=== PATIENT | female | born 1930 | race Caucasian/White ===

== ENCOUNTER → 2016-07-03 | Outpatient (CLI) | payer MEDICARE ==
--- NOTE | 2016-07-03 10:48 | FL ---
EXAMINATION TYPE: FL barium swallow DATE OF EXAM: 07/03/2016 10:27 AM CLINICAL HISTORY: Feels food getting stuck, choking when swallowing. TECHNIQUE: A double contrast esophagram is performed utilizing air and barium. A total of approxima tely 45 seconds of fluoroscopic time was utilized during procedure. COMPARISON: CT abdomen and pelvis June 21, 2015 FINDINGS: The esophagus shows some mild dysmotility with some abnormal secondary and tertiary contrac tions identified distally after several episodes of drinking perhaps related to fatigue . No evidenc e of hiatal hernia or stricture noted. No abnormal outpouching or intraluminal mass is identified. Du ring rapid drinking of thick liquid barium episode of aspiration which does not initiate cough reflex was identified. No significant gastroesophageal reflux was seen during real time performance of this study. IMPRESSION: Aspiration with drinking significant rapid amount of thick liquid barium which does not i nitiate cough reflex, presumed product of rapid drinking and fatigue. This could be reevaluated with modified barium swallow study if desired. Some dysmotility noted perhaps related to fatigue. No obstr ucting mass, stricture, or diverticulum identified.
== END | disposition home or self-care (01) ==
LOC: RADFLWHC 09:56
PROVIDERS: ATTEND Family Medicine
DX: R09.89 Other specified symptoms and signs involving the circulatory and respiratory systems (principal)
CPT/HCPCS: 74220

== ENCOUNTER → 2016-07-13 | Outpatient (CLI) | payer MEDICARE ==
--- NOTE | 2016-07-13 12:15 | FL ---
EXAMINATION TYPE: FL barium swallow w video DATE OF EXAM: 07/13/2016 11:42 AM COMPARISON: NONE HISTORY: Aspiration on esophagram TECHNIQUE: Fluoroscopy. FINDINGS: Fluoroscopic guidance was provided for the procedure performed in conjunction with the [facility] pathology department. Please see complete report forthcoming from the Speech Pathology departmen t. Various consistencies from thin liquid to solids were administered. No aspiration or penetration was evident. No significant pooling was observed in the vallecula. There was normal propulsion of the bolus. IMPRESSION: 1. No aspiration or penetration on the current evaluation.
== END ==
LOC: RADFLMAIN 10:58
PROVIDERS: ATTEND Family Medicine
DX: R09.89 Other specified symptoms and signs involving the circulatory and respiratory systems (principal)
CPT/HCPCS: 74230

== ENCOUNTER 2016-09-09 19:09 | Emergency (ER) | payer MEDICARE ==
--- NOTE | 2016-09-09 20:23 | ED ---
General Adult HPI - General Chief complaint: Recheck/Abnormal Lab/Rx Stated complaint: Abnormal Labs Time Seen by Provider: 09/09/16 19:22 Source: patient Mode of arrival: ambulatory Limitations: no limitations - History of Present Illness Initial comments: Patient is an 86-year-old female presenting for abnormal lab. Patient had an elevated d-dimer by PCP. Patient states she's not been feeling well for the past 3-4 days. Patient cannot extrapolate on this. Patient states she follow up with her PCP on Wednesday noted to have hypertension for which she was started on amlodipine [address] Herron who responded stating he was concerned about a PE given patient's complaint of shortness of breath and fatigue. Patient denies fever, chills, chest, shortness breath, nausea, vomiting, diarrhea, dysuria. Patient denies any blood loss. Patient denies history of DVT/PE, hemoptysis, cancer, recent travel/trauma/surgery, denies estrogen use. - Related Data Home Medications Medication Instructions Recorded Confirmed Aspirin EC [Ecotrin Low Dose] 81 mg PO DAILY 09/09/16 09/09/16 amLODIPine [Norvasc] 5 mg PO DAILY 09/09/16 09/09/16 Previous Rx's Medication Instructions Recorded Cephalexin [Keflex] 500 mg PO TID #21 cap 09/09/16 Allergies Allergy/AdvReac Type Severity Reaction Status Date / Time Sulfa (Sulfonamide Allergy Unknown Verified 09/09/16 20:10 Antibiotics) Childhood Review of Systems ROS Statement: Those systems with pertinent positive or pertinent negative responses have been documented in the HPI. Constitutional: No fever and no chills. HENT: No congestion, no rhinorrhea and no sore throat. Eyes: No discharge and no redness. Respiratory: No cough and no shortness of breath. Cardiovascular: No chest pain and no palpitations. Gastrointestinal: No nausea, no vomiting, no abdominal pain and no diarrhea. Genitourinary: No dysuria and no hematuria. Musculoskeletal: No back pain and no arthralgias. Skin: No pallor and no rash. Neurological: Positive fatigue. No dizziness and No headaches. ROS Other: All systems not noted in ROS Statement are negative. Past Medical History Past Medical History: Hypertension History of Any Multi-Drug Resistant Organisms: None Reported Additional Past Surgical History / Comment(s): hemorrhoid surg Past Psychological History: No Psychological Hx Reported Smoking Status: Never smoker Past Alcohol Use History: None Reported Past Drug Use History: None Reported General Exam - General Exam Comments Initial Comments: Constitutional: Patient appears well-developed and well-nourished. No distress. Head: Normocephalic and atraumatic. Eyes: Conjunctivae and EOM are normal. Right eye exhibits no discharge. Left eye exhibits no discharge. No scleral icterus. Neck: Normal range of motion. Neck supple. Cardiovascular: Normal rate and regular rhythm. No murmur heard. Pulmonary/Chest: Effort normal and breath sounds normal. No respiratory distress. No wheezes. Abdominal: Soft. No distension. There is no tenderness. There is no rebound and no guarding. Musculoskeletal: Normal range of motion. No edema or tenderness. No unilateral calf tenderness or swelling. Neurological: Patient alert and oriented to person, place, and time. Skin: Skin is warm and dry. Not diaphoretic. Nursing notes and vitals reviewed. Limitations: no limitations Course Vital Signs 09/09/16 09/09/16 09/09/16 19:15 21:39 23:06 Temperature 98.3 F Pulse Rate 83 82 86 Respiratory 20 18 18 Rate Blood Pressure 206/84 145/66 158/68 O2 Sat by Pulse 96 96 94 L Oximetry - Reevaluation(s) Reevaluation #1: 09/09/16 22:26 Patient resting comfortably in the stretcher. Will order CT renal stone to make sure patient does not have a kidney stone causing infection. Reevaluation #2: 09/10/16 00:04 Patient resting comfortably in the stretcher. No further complaints. Updated on results. EKG Findings - EKG Comments: EKG Findings:: Rate 85. NSR. No ST-T wave changes. LA internal normal . QRS interval normal. QTc duration normal. Medical Decision Making - Medical Decision Making Patient is an 86-year-old female presenting with elevated d-dimer. CTA was ordered at requests of PCP as patient did not have an outpatient order for it. Patient with fatigue for the past 4 days. CTA with incidental findings which were disclosed to the patient. CT report printed for patient to follow-up with Dr. Herron. CBC, BMP, troponin unremarkable. EKG unremarkable. UA showing 15 urine WBCs with incidental finding on CT chest of hydronephrosis. CT abdomen and pelvis was obtained not showing concerns for hydronephrosis or obstructive nephrolithiasis. Patient's fairly well-appearing and stable for discharge. Patient was started on Keflex. Prior to discharge, patient was resting comfortably in bed. Course of stay improved. Denies pain. Discussed physical exam and diagnostic tests with patient. Questions answered and patient is agreeable to discharge with close follow up with Primary Care Physician. Instructed to return to Emergency Department if symptoms worsen. - Lab Data Result diagrams: 09/09/16 20:35 09/09/16 20:35 Lab Results 09/09/16 09/09/16 09/09/16 Range/Units 20:06 20:35 20:35 WBC 6.1 (3.8-10.6) k/uL RBC 4.79 (3.80-5.40) m/uL Hgb 15.1 (11.4-16.0) gm/dL Hct 44.5 (34.0-46.0) % MCV 93.0 (80.0-100.0) fL MCH 31.6 (25.0-35.0) pg MCHC 33.9 (31.0-37.0) g/dL RDW 12.6 (11.5-15.5) % Plt Count 295 (150-450) k/uL Neutrophils % 47 % Lymphocytes % 41 % Monocytes % 7 % Eosinophils % 3 % Basophils % 0 % Neutrophils # 2.8 (1.3-7.7) k/uL Lymphocytes # 2.5 (1.0-4.8) k/uL Monocytes # 0.4 (0-1.0) k/uL Eosinophils # 0.2 (0-0.7) k/uL Basophils # 0.0 (0-0.2) k/uL PT (9.0-12.0) sec INR (<1.1) APTT (22.0-30.0) sec Sodium 142 (137-145) mmol/L Potassium 4.0 (3.5-5.1) mmol/L Chloride 104 (98-107) mmol/L Carbon Dioxide 27 (22-30) mmol/L Anion Gap 11 mmol/L BUN 20 H (7-17) mg/dL Creatinine 0.71 (0.52-1.04) mg/dL Est GFR (MDRD) Af Amer >60 (>60 ml/min/1.73 sqM) Est GFR (MDRD) Non-Af >60 (>60 ml/min/1.73 sqM) Glucose 102 H (74-99) mg/dL Calcium 10.3 H (8.4-10.2) mg/dL Troponin I (0.000-0.034) ng/mL Urine Color Yellow Urine Appearance Clear (Clear) Urine pH 6.0 (5.0-8.0) Ur Specific [place] 1.014 (1.001-1.035) Urine Protein Negative (Negative) Urine Glucose (UA) Negative (Negative) Urine Ketones Trace H (Negative) Urine Blood Trace H (Negative) Urine Nitrite Negative (Negative) Urine Bilirubin Negative (Negative) Urine Urobilinogen <2.0 (<2.0) mg/dL Ur Leukocyte Esterase Moderate H (Negative) Urine RBC 4 (0-5) /hpf Urine WBC 15 H (0-5) /hpf Ur Squamous Epith Cells 1 (0-4) /hpf Urine Bacteria Rare H (None) /hpf Urine Mucus Rare H (None) /hpf 09/09/16 09/09/16 Range/Units 20:35 20:35 WBC (3.8-10.6) k/uL RBC (3.80-5.40) m/uL Hgb (11.4-16.0) gm/dL Hct (34.0-46.0) % MCV (80.0-100.0) fL MCH (25.0-35.0) pg MCHC (31.0-37.0) g/dL RDW (11.5-15.5) % Plt Count (150-450) k/uL Neutrophils % % Lymphocytes % % Monocytes % % Eosinophils % % Basophils % % Neutrophils # (1.3-7.7) k/uL Lymphocytes # (1.0-4.8) k/uL Monocytes # (0-1.0) k/uL Eosinophils # (0-0.7) k/uL Basophils # (0-0.2) k/uL PT 9.8 (9.0-12.0) sec INR 1.0 (<1.1) APTT 25.8 (22.0-30.0) sec Sodium (137-145) mmol/L Potassium (3.5-5.1) mmol/L Chloride (98-107) mmol/L Carbon Dioxide (22-30) mmol/L Anion Gap mmol/L BUN (7-17) mg/dL Creatinine (0.52-1.04) mg/dL Est GFR (MDRD) Af Amer (>60 ml/min/1.73 sqM) Est GFR (MDRD) Non-Af (>60 ml/min/1.73 sqM) Glucose (74-99) mg/dL Calcium (8.4-10.2) mg/dL Troponin I <0.012 (0.000-0.034) ng/mL Urine Color Urine Appearance (Clear) Urine pH (5.0-8.0) Ur Specific [place] (1.001-1.035) Urine Protein (Negative) Urine Glucose (UA) (Negative) Urine Ketones (Negative) Urine Blood (Negative) Urine Nitrite (Negative) Urine Bilirubin (Negative) Urine Urobilinogen (<2.0) mg/dL Ur Leukocyte Esterase (Negative) Urine RBC (0-5) /hpf Urine WBC (0-5) /hpf Ur Squamous Epith Cells (0-4) /hpf Urine Bacteria (None) /hpf Urine Mucus (None) /hpf Disposition Clinical Impression: Fatigue, Abnormal CT of the chest, UTI (urinary tract infection) Disposition: HOME SELF-CARE Condition: Good Instructions: Fatigue (ED) Prescriptions: Cephalexin [Keflex] 500 mg PO TID #21 cap Referrals: Dennis Herron MD [Primary Care Provider] - 1-2 days
[2016-09-09] MEDS ORDERED: RX INFO: IV CONTRAST WAS GIVEN 1 EACH MISC MISCELLANE PRN (20:24)
[2016-09-09 20:50] LABS: Appearance,Urine Clear (Clear); Bacteria,Urine Rare /hpf; Bilirubin,Urine Negative (Negative); Glucose,Urine (UA) Negative (Negative); Ketones,Urine Trace (Negative); Leukocyte Esterase,Urine Moderate (Negative); Mucus,Urine Rare /hpf; Nitrite,Urine Negative (Negative); Particle Count 1421; Protein,Urine Negative (Negative); RBC,Urine 4 /hpf (0-5); Specific Gravity,Urine 1.014 (1.001-1.035); Squamous Epithelial Cell,Urine 1 /hpf (0-4); UA Billing (MACRO vs. MICRO) MICRO; Urobilinogen,Urine <2.0 mg/dL (<2.0); WBC,Urine 15 /hpf (0-5)
[2016-09-09 20:52] LABS: Basophils % (A) 0 %; CH 30.5; CHCM 32.9; Eosinophils # (A) 0.2 k/uL (0-0.7); Eosinophils % (A) 3 %; HCT 44.5 % (34.0-46.0); HDW 2.28; HGB 15.1 gm/dL (11.4-16.0); Luc # (Auto) 0.15; Luc % (Auto) 3; Lymphocytes # (A) 2.5 k/uL (1.0-4.8); Lymphocytes % (A) 41 %; MCH 31.6 pg (25.0-35.0); MCHC 33.9 g/dL (31.0-37.0); Mean Platelet Volume 7.1; Monocytes # (A) 0.4 k/uL (0-1.0); Monocytes % (A) 7 %; Neutrophils # (A) 2.8 k/uL (1.3-7.7); Neutrophils % (A) 47 %; RBC 4.79 m/uL (3.80-5.40); RDW 12.6 % (11.5-15.5); WBC 6.1 k/uL (3.8-10.6); WBC (Perox) 6.02
[2016-09-09 21:04] LABS: Partial Thromboplastin Time 25.8 sec (22.0-30.0); Prothrombin Time 9.8 sec (9.0-12.0)
[2016-09-09 21:11] LABS: Anion Gap 11 mmol/L; Blood Urea Nitrogen 20 mg/dL (7-17); Calcium 10.3 mg/dL (8.4-10.2); Carbon Dioxide 27 mmol/L (22-30); Chloride 104 mmol/L (98-107); Glucose 102 mg/dL (74-99); Non-African American GFR(MDRD) >60 (>60 ml/min/1.73 sqM); Sodium 142 mmol/L (137-145)
[2016-09-09 21:42] VITALS: RESP 18
--- NOTE | 2016-09-09 22:04 | CT ---
CT CHEST FOR PULMONARY EMBOLISM. EXAMINATION TYPE: CT angio chest DATE OF EXAM: 09/09/2016 9:42 PM INDICATION: Abnormal labs. Recently started a new BP medication CT DLP: 172.1 mGycm, Automated exposure control for dose reduction was used. CONTRAST: Patient injected with 100 mL of Omnipaque 350. COMPARISON: NONE TECHNIQUE: CT of the chest is performed on a spiral scan at 2 mm thick sections. Study is performed with intravenous contrast timed for evaluation for pulmonary embolism. This will limit additional po rtions of the evaluation. 3-D MIP images reconstructed by the technologist are reviewed on the compu ter in the coronal and sagittal planes. FINDINGS: No persistent filling defects are evident to suggest an acute pulmonary embolism. No mediastinal or hilar adenopathy enlarged by CT criteria is evident. Small pretracheal lymph nodes are present. The ascending aorta diameter at the level of the main pulmonary artery is 2.9 cm. The main pulmonary artery diameter at the bifurcation is 2.2 cm. There is a calcified granuloma in the posterior right lung base measuring 0.7 cm. Some atelectatic ch anges are likely present within the posterior medial right lung base. Findings were present to 016. Scarring can be considered. Underlying mass is not excluded. There is a punctate density at the left lung apex. An area of increased thickening is along the right lung apex. There is some mild left hydronephrosis. There may be delayed excretion on the left. Correlate for adolfo al stone. Right lobe thyroid appears somewhat prominent. Some enlargement of the thyroid may be prese nt. As extends towards the suprasternal region. IMPRESSIONS: 1. No acute pulmonary embolism. 2. Granuloma right lung base. 3. Atelectasis versus scarring or mass effect posterior medial right lung base. Follow-up is recommen ded. 4. Delayed excretion on the left with slow perfusion of the left kidney. Consider renal workup.
--- NOTE | 2016-09-09 23:35 | CT ---
EXAM: CT Abdomen and Pelvis With Intravenous Contrast CLINICAL HISTORY: Reason: Pain TECHNIQUE: Axial computed tomography images of the abdomen and pelvis with intravenous contrast. CTDI is 6.20 mGy and DLP is 255.0 mGy-cm This CT exam was performed using one or more of the following dose reduction techniques: automated exposure control, adjustment of the mA and/or kV according to patient size, and/or use of iterative reconstruction technique. COMPARISON: CT abdomen and pelvis 06/21/15 FINDINGS: Lower thorax: Scarring or discoid atelectasis, at the lower lobes. Calcified granuloma at the posterior aspect of the right lower lobe. ABDOMEN: Liver: Unremarkable. No mass. Gallbladder and bile ducts: Pancreas and gallbladder are grossly unremarkable. No calcified stones. No ductal dilation. Pancreas: See above. Spleen: Unremarkable. No splenomegaly. Adrenals: Unremarkable. No mass. Kidneys and ureters: Unremarkable. No solid mass. No hydronephrosis. Stomach and bowel: No bowel obstruction. No appendicitis or colitis. Scattered colonic diverticula. No acute diverticulitis. No other inflammatory changes of bowel. Appendix: See above. PELVIS: Bladder: Unremarkable. No mass. Reproductive: Unremarkable as visualized. ABDOMEN and PELVIS: Intraperitoneal space: Unremarkable. No free air. No significant fluid collection. Bones/joints: Grade 2 degenerative anterolisthesis at L2 on L3. Associated up to moderate neuroforaminal stenosis bilaterally. No acute fracture. No dislocation. Soft tissues: Unremarkable. Vasculature: Unremarkable. No abdominal aortic aneurysm. Lymph nodes: Unremarkable. No enlarged lymph nodes. IMPRESSION: No acute or inflammatory disease or bowel obstruction. Colonic diverticulosis. Grade 2 degenerative anterolisthesis of L2 on L3.
[2016-09-10 00:09] VITALS: BP 157/68; PULSE 85; TEMP 97.5
== END 2016-09-10 00:09 | disposition home or self-care (01) ==
LOC: EC 19:09
DX: N39.0 Urinary tract infection, site not specified (principal); R93.8 Abnormal findings on diagnostic imaging of other specified body structures; K57.30 Diverticulosis of large intestine without perforation or abscess without bleeding; I10 Essential (primary) hypertension; Z79.82 Long term (current) use of aspirin; Z79.899 Other long term (current) drug therapy; Z88.2 Allergy status to sulfonamides
CPT/HCPCS: 36415; 93005; 80048; 84484; 85025; 85610; 85730; 81001; 71275; 74177; 99284; Q9967

== ENCOUNTER → 2017-10-29 | Outpatient (CLI) | payer MEDICARE ==
[2017-10-29 14:15] LABS: Basophils % (A) 1 %; Eosinophils # (A) 0.2 k/uL (0-0.7); Eosinophils % (A) 3 %; HCT 41.9 % (34.0-46.0); HGB 13.3 gm/dL (11.4-16.0); Lymphocytes # (A) 1.5 k/uL (1.0-4.8); Lymphocytes % (A) 31 %; MCH 30.3 pg (25.0-35.0); MCHC 31.8 g/dL (31.0-37.0); MCV 95.3 fL (80.0-100.0); Mean Platelet Volume 7.1; Monocytes # (A) 0.4 k/uL (0-1.0); Monocytes % (A) 7 %; Neutrophils # (A) 2.8 k/uL (1.3-7.7); Neutrophils % (A) 56 %; Platelet Count 256 k/uL (150-450); RDW 12.8 % (11.5-15.5); WBC 4.9 k/uL (3.8-10.6)
[2017-10-29 14:35] LABS: Albumin 4.4 g/dL (3.5-5.0); Calcium 10.3 mg/dL (8.4-10.2); Potassium 4.5 mmol/L (3.5-5.1); Total Bilirubin 0.2 mg/dL (0.2-1.3); Total Protein 7.3 g/dL (6.3-8.2)
[2017-10-29 14:51] LABS: T4, Free (Free Thyroxine) 1.09 ng/dL (0.78-2.19)
[2017-10-29 15:00] LABS: Creatine Kinase MB 1.4 ng/mL (0.0-2.4); Troponin I <0.012 ng/mL (0.000-0.034)
== END ==
LOC: LABWHC1 13:54
PROVIDERS: ATTEND Nurse Practitioner Adult Health
DX: I10 Essential (primary) hypertension (principal)
CPT/HCPCS: 36415; 80053; 82550; 82553; 84439; 84443; 84484; 85025

== ENCOUNTER 2018-06-08 14:42 | Inpatient (IN) | payer MEDICARE ==
[2018-06-08] MEDS ORDERED: MORPHINE SULFATE 4 MG/ML SYRINGE IV STA (15:03)
[2018-06-08] MEDS ORDERED: ONDANSETRON 4 MG/2 ML VIAL IVP STA (15:03)
[2018-06-08] MEDS ORDERED: SODIUM CHLORIDE 0.9% 1,000 ML IV STA ×2 (15:03)
[2018-06-08] MEDS ORDERED: PANTOPRAZOLE 40 MG/10 ML VIAL IVP STA (15:03)
--- NOTE | 2018-06-08 15:19 | ED ---
General Adult HPI - General Source: patient, EMS, RN notes reviewed, old records reviewed Mode of arrival: EMS Limitations: no limitations <Cony Alvarado - Last Filed: 06/08/18 20:10> <Isaiah Khan - Last Filed: 06/08/18 20:45> - General Chief complaint: Abdominal Pain Stated complaint: Poss bowel obstruction Time Seen by Provider: 06/08/18 14:55 - History of Present Illness Initial comments: Patient is 87-year-old female who presents emergency Department today with complaints of concerns abdominal obstuction. She was transferred from [facility]. Ports that her abdominal pain and distention and vomiting episodes started at 8 AM. She reports that she took some prune juice to promote a bowel movement. She did have very small stool. Patient states that she has had no fevers or chills. She denies any associated chest pain or shortness of breath. Surgical history includes hysterectomy and bladder sling. (Cony Alvarado) - Related Data Home Medications Medication Instructions Recorded Confirmed Aspirin EC [Ecotrin Low Dose] 81 mg PO ONCE PRN 09/09/16 06/08/18 Cholecalciferol [Vitamin D3] 5,000 unit PO DAILY 04/22/17 06/08/18 Losartan Potassium [Cozaar] 100 mg PO HS 04/22/17 06/08/18 Allergies Allergy/AdvReac Type Severity Reaction Status Date / Time Sulfa (Sulfonamide Allergy Unknown Verified 06/08/18 15:22 Antibiotics) Childhood Review of Systems ROS Other: All systems not noted in ROS Statement are negative. <Cony Alvarado - Last Filed: 06/08/18 20:10> ROS Other: All systems not noted in ROS Statement are negative. <Isaiah Khan - Last Filed: 06/08/18 20:45> ROS Statement: Those systems with pertinent positive or pertinent negative responses have been documented in the HPI. Past Medical History Past Medical History: Hypertension History of Any Multi-Drug Resistant Organisms: None Reported Past Surgical History: Hysterectomy Additional Past Surgical History / Comment(s): hemorrhoid surg , bladder suspension Past Psychological History: No Psychological Hx Reported Smoking Status: Never smoker Past Alcohol Use History: None Reported Past Drug Use History: None Reported <Cony Alvarado - Last Filed: 06/08/18 20:10> General Exam Limitations: no limitations General appearance: alert, in no apparent distress Head exam: Present: atraumatic, normocephalic, normal inspection Eye exam: Present: normal appearance, PERRL, EOMI. Absent: scleral icterus, conjunctival injection, periorbital swelling ENT exam: Present: normal exam, mucous membranes moist Neck exam: Present: normal inspection. Absent: tenderness, meningismus, lymphadenopathy Respiratory exam: Present: normal lung sounds bilaterally. Absent: respiratory distress, wheezes, rales, rhonchi, stridor Cardiovascular Exam: Present: regular rate, normal rhythm, normal heart sounds. Absent: systolic murmur, diastolic murmur, rubs, gallop, clicks GI/Abdominal exam: Present: soft, distended, tenderness (Abdominal distention and epigastric tenderness), normal bowel sounds. Absent: guarding, rebound, rigid Extremities exam: Present: normal inspection, full ROM, normal capillary refill. Absent: tenderness, pedal edema, joint swelling, calf tenderness Back exam: Present: normal inspection Neurological exam: Present: alert, oriented X3, CN II-XII intact Psychiatric exam: Present: normal affect, normal mood <Cony Alvarado - Last Filed: 06/08/18 20:10> <Isaiah Khan - Last Filed: 06/08/18 20:45> - General Exam Comments Initial Comments: 87-year-old female. Alert and oriented. Moderate discomfort. Vomiting on examination. (Cony Alvarado) Course <Cony Alvarado - Last Filed: 06/08/18 20:10> <Isaiah Khan - Last Filed: 06/08/18 20:45> Vital Signs 06/08/18 06/08/18 06/08/18 14:56 16:00 16:30 Temperature 97.6 F Pulse Rate 92 87 85 Respiratory 16 18 16 Rate Blood Pressure 182/88 128/49 138/52 O2 Sat by Pulse 97 89 L 96 Oximetry 06/08/18 06/08/18 06/08/18 17:00 18:34 20:40 Temperature 97.9 F Pulse Rate 90 89 87 Respiratory 18 18 16 Rate Blood Pressure 149/71 151/75 114/56 O2 Sat by Pulse 97 94 L 96 Oximetry - Reevaluation(s) Reevaluation #1: 06/08/18 20:45 Case was discussed with Dr. Joseph, covering for Dr. Huerta just for the time being. He states to admit Dr. Huerta who will pharmacy picking technician the case in the morning. Case was also discussed with Dr. Dee. (Isaiah Khan) EKG Findings - EKG Comments: EKG Findings:: EKG performed at 1543 shows normal sinus rhythm, ventricular hypertrophy with repolarization abnormality. Inferior infarct age indeterminate. Ventricular rate of 89 bpm. Pulse 170 ms. QS duration 104. QT QTC 32/464. <Cony Alvarado - Last Filed: 06/08/18 20:10> Medical Decision Making - Lab Data Result diagrams: 06/08/18 15:22 06/08/18 15:20 - Radiology Data Radiology results: report reviewed <Cony Alvarado - Last Filed: 06/08/18 20:10> - Lab Data Result diagrams: 06/08/18 15:22 06/08/18 15:20 <Isaiah Khan - Last Filed: 06/08/18 20:45> - Medical Decision Making 79-year-old female presents resources with 1 day of vomiting. Was sent in from urgent care for concerns for about section. This is confirmed with CT. Lab work was otherwise normal. She continues some pain with abdominal distention. We did contact [facility] in NG tube. Patient tolerated procedure well. Patient will be admitted under medicine with consults to Dr. Dee. Dr. Khan discussed the case with Dr. Dee. (Cony Alvarado) - Lab Data Lab Results 06/08/18 06/08/18 06/08/18 Range/Units 15:20 15:22 15:22 WBC 13.1 H (3.8-10.6) k/uL RBC 4.68 (3.80-5.40) m/uL Hgb 14.1 (11.4-16.0) gm/dL Hct 44.6 (34.0-46.0) % MCV 95.2 (80.0-100.0) fL MCH 30.1 (25.0-35.0) pg MCHC 31.6 (31.0-37.0) g/dL RDW 12.6 (11.5-15.5) % Plt Count 303 (150-450) k/uL Neutrophils % 90 % Lymphocytes % 6 % Monocytes % 2 % Eosinophils % 1 % Basophils % 0 % Neutrophils # 11.8 H (1.3-7.7) k/uL Lymphocytes # 0.8 L (1.0-4.8) k/uL Monocytes # 0.3 (0-1.0) k/uL Eosinophils # 0.1 (0-0.7) k/uL Basophils # 0.0 (0-0.2) k/uL PT 9.5 (9.0-12.0) sec INR 0.9 (<1.2) APTT 25.1 (22.0-30.0) sec Sodium 141 (137-145) mmol/L Potassium 4.7 (3.5-5.1) mmol/L Chloride 107 (98-107) mmol/L Carbon Dioxide 23 (22-30) mmol/L Anion Gap 11 mmol/L BUN 15 (7-17) mg/dL Creatinine 0.79 (0.52-1.04) mg/dL Est GFR (CKD-EPI)AfAm 78 (>60 ml/min/1.73 sqM) Est GFR (CKD-EPI)NonAf 68 (>60 ml/min/1.73 sqM) Glucose 133 H (74-99) mg/dL Calcium 10.2 (8.4-10.2) mg/dL Total Bilirubin 0.5 (0.2-1.3) mg/dL AST 28 (14-36) U/L ALT 35 (9-52) U/L Alkaline Phosphatase 64 (38-126) U/L Troponin I (0.000-0.034) ng/mL Total Protein 8.2 (6.3-8.2) g/dL Albumin 4.6 (3.5-5.0) g/dL Amylase 95 (30-110) U/L Lipase 138 (23-300) U/L 06/08/18 Range/Units 17:40 WBC (3.8-10.6) k/uL RBC (3.80-5.40) m/uL Hgb (11.4-16.0) gm/dL Hct (34.0-46.0) % MCV (80.0-100.0) fL MCH (25.0-35.0) pg MCHC (31.0-37.0) g/dL RDW (11.5-15.5) % Plt Count (150-450) k/uL Neutrophils % % Lymphocytes % % Monocytes % % Eosinophils % % Basophils % % Neutrophils # (1.3-7.7) k/uL Lymphocytes # (1.0-4.8) k/uL Monocytes # (0-1.0) k/uL Eosinophils # (0-0.7) k/uL Basophils # (0-0.2) k/uL PT (9.0-12.0) sec INR (<1.2) APTT (22.0-30.0) sec Sodium (137-145) mmol/L Potassium (3.5-5.1) mmol/L Chloride (98-107) mmol/L Carbon Dioxide (22-30) mmol/L Anion Gap mmol/L BUN (7-17) mg/dL Creatinine (0.52-1.04) mg/dL Est GFR (CKD-EPI)AfAm (>60 ml/min/1.73 sqM) Est GFR (CKD-EPI)NonAf (>60 ml/min/1.73 sqM) Glucose (74-99) mg/dL Calcium (8.4-10.2) mg/dL Total Bilirubin (0.2-1.3) mg/dL AST (14-36) U/L ALT (9-52) U/L Alkaline Phosphatase (38-126) U/L Troponin I <0.012 (0.000-0.034) ng/mL Total Protein (6.3-8.2) g/dL Albumin (3.5-5.0) g/dL Amylase (30-110) U/L Lipase (23-300) U/L - Radiology Data Moderate small bowel obstruction. Minimal peritoneal fluid. Likely reactive. There is a mild/moderate small bowel obstruction. Minimal peritoneal fluid likely reactive. The level obstruction being at the mid ileum with pelvic transition point. No massive the transition findings suggest adhesions. There is no bowel wall thickening or pneumatosis. No pneumoperitoneum or extraluminal gas. Severe colon diverticulosis noted. No diverticulitis. ( Cony Alvarado) Disposition Is patient prescribed a controlled substance at d/c from ED?: No Time of Disposition: 19:21 <Cony Alvarado - Last Filed: 06/08/18 20:10> <Isaiah Khan - Last Filed: 06/08/18 20:45> Clinical Impression: SBO (small bowel obstruction) Disposition: ADMITTED IP TO THIS HOSP Condition: Stable Referrals: Dennis Herron MD [Primary Care Provider] - 1-2 days
[2018-06-08 15:42] LABS: Basophils % (A) 0 %; Eosinophils # (A) 0.1 k/uL (0-0.7); Eosinophils % (A) 1 %; HCT 44.6 % (34.0-46.0); HGB 14.1 gm/dL (11.4-16.0); Lymphocytes # (A) 0.8 k/uL (1.0-4.8); Lymphocytes % (A) 6 %; MCH 30.1 pg (25.0-35.0); MCHC 31.6 g/dL (31.0-37.0); MCV 95.2 fL (80.0-100.0); Mean Platelet Volume 6.7; Monocytes # (A) 0.3 k/uL (0-1.0); Monocytes % (A) 2 %; Neutrophils # (A) 11.8 k/uL (1.3-7.7); Neutrophils % (A) 90 %; Platelet Count 303 k/uL (150-450); RBC 4.68 m/uL (3.80-5.40); RDW 12.6 % (11.5-15.5); WBC 13.1 k/uL (3.8-10.6)
[2018-06-08 15:56] LABS: Albumin 4.6 g/dL (3.5-5.0); Calcium 10.2 mg/dL (8.4-10.2); Potassium 4.7 mmol/L (3.5-5.1); Total Bilirubin 0.5 mg/dL (0.2-1.3); Total Protein 8.2 g/dL (6.3-8.2)
[2018-06-08 16:21] LABS: INR 0.9 (<1.2); Partial Thromboplastin Time 25.1 sec (22.0-30.0); Prothrombin Time 9.5 sec (9.0-12.0)
--- NOTE | 2018-06-08 17:30 | CT ---
EXAMINATION TYPE: CT abdomen pelvis w con DATE OF EXAM: 06/08/2018 COMPARISON: 09/09/2016 HISTORY: Generalized abdominal pain and cramping today. CT DLP: 595.1 mGycm Automated exposure control for dose reduction was used. TECHNIQUE: Helical acquisition of images was performed from the lung bases through the pelvis. CONTRAST: Performed without Oral Contrast and with IV Contrast, patient injected with 100 mL of Isovue 300. FINDINGS: LUNG BASES: No acute findings. Coronary calcifications noted. LIVER/GB: No significant abnormality is appreciated. PANCREAS: No significant abnormality is seen. SPLEEN: No significant abnormality is seen. ADRENALS: No significant abnormality is seen. KIDNEYS: No significant abnormality is seen. Left parapelvic cysts incidentally redemonstrated. FREE AIR: No free air is visualized. Minimal peritoneal fluid is noted, related to the liver and spl een and pelvic cul-de-sac. RETROPERITONEAL ADENOPATHY: None visualized REPRODUCTIVE ORGANS: No significant abnormality is seen URINARY BLADDER: No significant abnormality is seen. PELVIC ADENOPATHY: None visualized. OSSEOUS STRUCTURES: No significant abnormality is seen. BOWEL: There is mild-moderate small bowel obstruction, with level of obstruction being at the midile um, with pelvic transition point. As there is no mass at the transition, findings suggest adhesions a s etiology. There is no bowel wall thickening or pneumatosis. No pneumoperitoneum or other extralumin al gas. Severe colonic diverticulosis, involving all segments of the colon. No diverticulitis. OTHER: No acute vascular findings. IMPRESSION: 1. MODERATE SMALL BOWEL OBSTRUCTION. 2. MINIMAL PERITONEAL FLUID, LIKELY REACTIVE.
[2018-06-08] MEDS ORDERED: HYDROmorphone 1 MG/ML 1 ML SYRINGE IVP STA (17:50)
--- NOTE | 2018-06-08 19:07 | XR ---
EXAMINATION TYPE: XR abdomen 2V DATE OF EXAM: 06/08/2018 COMPARISON: 06/23/2015 HISTORY: NG tube placement TECHNIQUE: 2 supine portable views were obtained FINDINGS: The radiographs show NG tube to be present, with tip and port superimposed over the gastric fundus. Radiographic contrast can be seen within the collecting systems and the urinary bladder. No other fin dings. IMPRESSION: NG tube placement.
[2018-06-08] MEDS ORDERED: NALOXONE 0.4 MG/ML 1 ML VIAL IV PRN (19:21)
[2018-06-08] MEDS ORDERED: HYDROmorphone 0.5 MG/0.5 ML SYRINGE IVP PRN (19:21)
[2018-06-08] MEDS: SODIUM CHLORIDE 0.9% 1,000 ML IV SCH (22:46)
[2018-06-08] MEDS: HYDROmorphone 1 MG/ML 1 ML SYRINGE IVP PRN (22:49)
[2018-06-09] MEDS: HYDROmorphone 1 MG/ML 1 ML SYRINGE IVP PRN ×3 (03:43→19:44)
[2018-06-09 04:03] LABS: Appearance,Urine Clear (Clear); Bacteria,Urine Rare /hpf; Bilirubin,Urine Negative (Negative); Blood,Urine Small (Negative); Color,Urine Yellow; Glucose,Urine (UA) Negative (Negative); Ketones,Urine 1+ (Negative); Leukocyte Esterase,Urine Negative (Negative); Mucus,Urine Rare /hpf; Nitrite,Urine Negative (Negative); PH, Urine 5.5 (5.0-8.0); Protein,Urine Negative (Negative); RBC,Urine 6 /hpf (0-5); Specific Gravity,Urine 1.039 (1.001-1.035); Squamous Epithelial Cell,Urine 5 /hpf (0-4); Urobilinogen,Urine <2.0 mg/dL (<2.0)
[2018-06-09] MEDS: SODIUM CHLORIDE 0.9% 1,000 ML IV SCH ×2 (06:57→16:41)
[2018-06-09] MEDS: PANTOPRAZOLE 40 MG/10 ML VIAL IV SCH (08:43)
[2018-06-09] MEDS: ONDANSETRON 4 MG/2 ML VIAL IVP PRN (08:59)
[2018-06-09] MEDS ORDERED: BENZOCAINE SPRAY 1 CAN MUCOUS MEM PRN (09:00)
--- NOTE | 2018-06-09 09:41 | XR ---
EXAMINATION TYPE: XR abdomen 1V DATE OF EXAM: 06/09/2018 COMPARISON: NONE HISTORY: NG tube placement TECHNIQUE: One view abdominal series FINDINGS: The osseous structures are intact. The bowel gas pattern is nonspecific. NG tube is seen coiled with in the gastric fundus. Dilated small bowel loops in the lower abdomen. This may been the basis of ile us, enteritis or partial obstruction. There is contrast within the bladder. Metallic densities overlying the sacrum are stable. Bilateral l ower lobe consolidation seen. Tiny effusions not excluded. Suggestion of a granuloma in the right upp er lobe. IMPRESSION: 1. Nonspecific gas pattern. NG tube is seen with the tip coiled in the gastric fundus. 2. Bilateral lower lobe infiltrate and small effusion.
--- NOTE | 2018-06-09 13:55 | P.GSCN ---
<Yuli Hernandez A - Last Filed: 06/09/18 13:51> History of Present Illness Consult date: 06/09/18 Reason for Consult: SBO Requesting physician: Cony Alvarado History of present illness: CHIEF COMPLAINT: Abdominal pain HISTORY OF PRESENT ILLNESS: 87-year-old female who presented to the emergency room with a chief complaint of abdominal pain. Patient reports her pain has been present for approximately 24 hours. Patient states she felt bloated prior to coming to the hospital. Patient states that she felt constipated at home. She currently denies flatus. No BM this morning. NG tube has inserted in the ER. Approximately 400cc of drainage thus far. Patient states her abdominal pain is improving and she feels less bloated in comparison to yesterday. WBC 13.1 on admission. PAST MEDICAL HISTORY: See list. PAST SURGICAL HISTORY: See list. MEDICATIONS: See list. ALLERGIES: See list. SOCIAL HISTORY: No illicit drug use. REVIEW OF SYSTEMS: CONSTITUTIONAL: Denies fever or chills. HEENT: Denies blurred vision, vision changes, or eye pain. Denies hemoptysis ENDOCRINE: Denies heat or cold intolerance. CARDIOVASCULAR: Denies chest pain or pressure. RESPIRATORY: No shortness of breath. GASTROINTESTINAL: Reports abdominal pain 1 day. Denies nausea or vomiting. NEURO: Denies history of seizures. PSYCH: No depression or suicidal ideation HEMATOLOGIC: Denies bleeding disorders. LYMPHATIC: The patient denies any lumps and bumps around the neck. GENITOURINARY: Denies any blood in urine or increased urinary frequency. MUSCULOSKELETAL: Denies myalgias. Denies joint swelling. Denies decreased range of motion beyond patients baseline. SKIN: Denies pruitis. Denies rash. PHYSICAL EXAM: VITAL SIGNS: Currently stable. GENERAL: Well-developed in no acute distress. HEENT: NG tube to LIS. No sclera icterus. Extraocular movements grossly intact. Moist buccal mucosa. Head is atraumatic, normocephalic. Hears conversational speech. No nasal drainage. NECK: Supple without lymphadenopathy. CHEST: Non-labored respirations and equal bilateral excursions. CARDIOVASCULAR: Regular rate with regular rhythm. Palpable 2+ radial pulses. ABDOMEN: Soft. Mildly distended. No tenderness noted upon palpation. NG tube present. MUSCULOSKELETAL: No clubbing, cyanosis or edema. NEUROLOGIC: No focal or lateralizing signs. Cranial nerves II through XII grossly intact. PSYCH: Appropriate affect. Alert and oriented to person, place and time. SKIN: Well perfused. Good skin turgor. IMAGING: Per radiologist's dictation: 1. CT abdomen and pelvis: [id number] small bowel obstruction. Severe colonic diverticulosis. Minimal peritoneal fluid, likely reactive. ASSESSMENT: 1. Small bowel obstruction, likely secondary to abdominal adhesions 2. Diverticulosis without evidence of acute diverticulitis PLAN: 1. Continue NG to LIS 2. Patient may have ice chips as tolerated 3. Conservative management at this time. No immediate surgical intervention advised. Nurse practitioner note has been reviewed by physician. Signing provider agrees with the documented findings, assessment, and plan of care. Past Medical History Past Medical History: Cancer, GERD/Reflux, Hypertension, Osteoarthritis (OA), Pneumonia Additional Past Medical History / Comment(s): hemorrhoids, uti's, hx squamous cell cancer perineum lt side, bronchitis,diverticulosis, cataract, had pne vaccine in past 5 years History of Any Multi-Drug Resistant Organisms: None Reported Past Surgical History: Hysterectomy Additional Past Surgical History / Comment(s): hemorrhoid surg , bladder suspension, egd/colonoscopy/polypectomy(benign),excision squamous cell skin cancer. Past Anesthesia/Blood Transfusion Reactions: No Reported Reaction Additional Past Anesthesia/Blood Transfusion Reaction / Comm: pt stated she has never received any blood transfusions Smoking Status: Never smoker - Past Family History Mother History Unknown: Yes Father History Unknown: Yes Sister(s) Family Medical History: Cancer Additional Family Medical History / Comment(s): unk type Medications and Allergies Home Medications Medication Instructions Recorded Confirmed Type Aspirin EC [Ecotrin Low Dose] 81 mg PO ONCE PRN 09/09/16 06/08/18 History Cholecalciferol [Vitamin D3] 5,000 unit PO DAILY 04/22/17 06/08/18 History Losartan Potassium [Cozaar] 100 mg PO HS 04/22/17 06/08/18 History Allergies Allergy/AdvReac Type Severity Reaction Status Date / Time Sulfa (Sulfonamide Allergy Unknown Verified 06/08/18 15:22 Antibiotics) Childhood Surgical - Exam Vital Signs Temp Pulse Resp BP Pulse Ox 97.6 F 92 16 182/88 97 06/08/18 14:56 06/08/18 14:56 06/08/18 14:56 06/08/18 14:56 06/08/18 14:56 Results - Labs 06/08/18 15:22 06/08/18 15:20 Abnormal Lab Results - Last 24 Hours (Table) 06/08/18 06/08/18 06/09/18 Range/Units 15:20 15:22 03:30 WBC 13.1 H (3.8-10.6) k/uL Neutrophils # 11.8 H (1.3-7.7) k/uL Lymphocytes # 0.8 L (1.0-4.8) k/uL Glucose 133 H (74-99) mg/dL Ur Specific [place] 1.039 H (1.001-1.035) Urine Ketones 1+ H (Negative) Urine Blood Small H (Negative) Urine RBC 6 H (0-5) /hpf Ur Squamous Epith Cells 5 H (0-4) /hpf Urine Bacteria Rare H (None) /hpf Urine Mucus Rare H (None) /hpf Diabetes panel 06/08/18 Range/Units 15:20 Sodium 141 (137-145) mmol/L Potassium 4.7 (3.5-5.1) mmol/L Chloride 107 (98-107) mmol/L Carbon Dioxide 23 (22-30) mmol/L BUN 15 (7-17) mg/dL Creatinine 0.79 (0.52-1.04) mg/dL Glucose 133 H (74-99) mg/dL Calcium 10.2 (8.4-10.2) mg/dL AST 28 (14-36) U/L ALT 35 (9-52) U/L Alkaline Phosphatase 64 (38-126) U/L Total Protein 8.2 (6.3-8.2) g/dL Albumin 4.6 (3.5-5.0) g/dL Calcium panel 06/08/18 Range/Units 15:20 Calcium 10.2 (8.4-10.2) mg/dL Albumin 4.6 (3.5-5.0) g/dL Pituitary panel 06/08/18 Range/Units 15:20 Sodium 141 (137-145) mmol/L Potassium 4.7 (3.5-5.1) mmol/L Chloride 107 (98-107) mmol/L Carbon Dioxide 23 (22-30) mmol/L BUN 15 (7-17) mg/dL Creatinine 0.79 (0.52-1.04) mg/dL Glucose 133 H (74-99) mg/dL Calcium 10.2 (8.4-10.2) mg/dL Adrenal panel 06/08/18 Range/Units 15:20 Sodium 141 (137-145) mmol/L Potassium 4.7 (3.5-5.1) mmol/L Chloride 107 (98-107) mmol/L Carbon Dioxide 23 (22-30) mmol/L BUN 15 (7-17) mg/dL Creatinine 0.79 (0.52-1.04) mg/dL Glucose 133 H (74-99) mg/dL Calcium 10.2 (8.4-10.2) mg/dL Total Bilirubin 0.5 (0.2-1.3) mg/dL AST 28 (14-36) U/L ALT 35 (9-52) U/L Alkaline Phosphatase 64 (38-126) U/L Total Protein 8.2 (6.3-8.2) g/dL Albumin 4.6 (3.5-5.0) g/dL Assessment and Plan (1) Abdominal adhesions Current Visit: Yes Status: Acute Code(s): K66.0 - PERITONEAL ADHESIONS ( POSTPROCEDURAL) (POSTINFECTION) SNOMED Code(s): 661926870 (2) Diverticulosis Current Visit: Yes Status: Acute Code(s): K57.90 - DVRTCLOS OF INTEST, PART UNSP, W/O PERF OR ABSCESS W/O BLEED SNOMED Code(s): 57135884 (3) History of hysterectomy Current Visit: Yes Status: Acute Code(s): Z90.710 - ACQUIRED ABSENCE OF BOTH CERVIX AND UTERUS SNOMED Code(s): 492312406 (4) Abdominal pain Current Visit: Yes Status: Acute Code(s): R10.9 - UNSPECIFIED ABDOMINAL PAIN SNOMED Code(s): 09766413 (5) SBO (small bowel obstruction) Current Visit: Yes Status: Acute Code(s): K56.609 - UNSP INTESTNL OBST, UNSP TO PARTIAL VERSUS COMPLETE OBST SNOMED Code(s): 918954626 <Mitzi Delgadillo - Last Filed: 06/09/18 16:56> Surgical - Exam Vital Signs Temp Pulse Resp BP Pulse Ox 97.6 F 92 16 182/88 97 06/08/18 14:56 06/08/18 14:56 06/08/18 14:56 06/08/18 14:56 06/08/18 14:56 Results - Labs 06/08/18 15:22 06/08/18 15:20 Abnormal Lab Results - Last 24 Hours (Table) 06/09/18 Range/Units 03:30 Ur Specific [place] 1.039 H (1.001-1.035) Urine Ketones 1+ H (Negative) Urine Blood Small H (Negative) Urine RBC 6 H (0-5) /hpf Ur Squamous Epith Cells 5 H (0-4) /hpf Urine Bacteria Rare H (None) /hpf Urine Mucus Rare H (None) /hpf Assessment and Plan Plan: Patient seen and evaluated. Recommend conservative management. No surgical intervention at this time.
--- NOTE | 2018-06-09 18:21 | P.HPIM ---
History of Present Illness H&P Date: 06/09/18 Chief Complaint: Abdominal pain History of present complaint: This is a very pleasant 87-year-old patient of Dr. Dennis Herron. Chronic stable medical conditions include GERD, hypertension, osteoarthritis, diverticulosis. Patient has a normal bowel pattern of a bowel movement daily. Patient's been having hard bowel movements. Has to apply the a lot of pressure. Patient now presented with 7 days of no bowel movement. No nausea vomiting. Slight bowel distention. No fever or chills. Computed tomography scan of the abdomen ER did show a small bowel obstruction. NG tube was placed. [place] better the same. Has possible flatus since then. Gen. surgery was consulted. Review of systems: GEN.: Tired EYES: None HEENT: None NECK: None RESPIRATORY: None CARDIOVASCULAR: None GASTROINTESTINAL: As above GENITOURINARY: None MUSCULOSKELETAL: Pain in the joint LYMPHATICS: None HEMATOLOGICAL: None PSYCHIATRY: None NEUROLOGICAL: None Past medical history: GERD, hypertension, osteoporosis, diverticulosis, hemorrhoids Social history: Does not smoke alcohol. Lives alone. Family history: Cancer type unknown Physical examination: VITAL SIGNS: 97.6, 92, 16, 128/49, 97% room air GENERAL: Average built, sitting up, comfortable. EYES: Pupils equal. Conjunctiva normal. HEENT: External appearance of nose and ears normal, oral cavity dry mucous membrane,. NG tube in place. NECK: JVD not raised; masses not palpable. HEART: First and second heart sounds are normal; no edema. LUNGS: Respiratory rate normal; clear to auscultation. ABDOMEN: Soft, distended, mild tenderness, bowel sounds hyperactive, liver spleen not palpable, no masses palpable. LYMPHATICS: No lymph nodes palpable in the axilla and neck. PSYCH: Alert and oriented x3; mood and affect normal. NEUROLOGICAL: Cranial nerves grossly intact; no facial asymmetry, power and sensation grossly intact. MUSCULOSKELETAL: Evidence of moist patient in the hands Investigations/in the context clinical: White count 13.1, hemoglobin 14.1, potassium 4.7, BUN and creatinine normal, Computed tomography scan of the abdomen-moderate small bowel obstruction, severe colonic diverticulosis Abdominal [id number] reviewed by me shows NG tube in place, distended bowels EKG-tracing personally reviewed by me shows normal sinus rhythm Q waves in inferior leads Assessment: Acute small bowel obstruction, patient is NG tube in place -GERD -Essential hypertension -Primary osteoarthritis especially in the hands -Chronic severe colonic diverticulosis -Plan: Patient got a NG tube in place. To suction. IV fluids. Lovenox for DVT prophylaxis. Gen. surgery was consulted. Try to relieve the obstruction conservatively if possible. Care was discussed with the patient. Questions were answered.. Past Medical History Past Medical History: Cancer, GERD/Reflux, Hypertension, Osteoarthritis (OA), Pneumonia Additional Past Medical History / Comment(s): hemorrhoids, uti's, hx squamous cell cancer perineum lt side, bronchitis,diverticulosis, cataract, had pne vaccine in past 5 years History of Any Multi-Drug Resistant Organisms: None Reported Past Surgical History: Hysterectomy Additional Past Surgical History / Comment(s): hemorrhoid surg , bladder suspension, egd/colonoscopy/polypectomy(benign),excision squamous cell skin cancer. Past Anesthesia/Blood Transfusion Reactions: No Reported Reaction Additional Past Anesthesia/Blood Transfusion Reaction / Comment(s): pt stated she has never received any blood transfusions Smoking Status: Never smoker - Past Family History Mother History Unknown: Yes Father History Unknown: Yes Sister(s) Family Medical History: Cancer Additional Family Medical History / Comment(s): unk type Medications and Allergies Home Medications Medication Instructions Recorded Confirmed Type Aspirin EC [Ecotrin Low Dose] 81 mg PO ONCE PRN 09/09/16 06/08/18 History Cholecalciferol [Vitamin D3] 5,000 unit PO DAILY 04/22/17 06/08/18 History Losartan Potassium [Cozaar] 100 mg PO HS 04/22/17 06/08/18 History Allergies Allergy/AdvReac Type Severity Reaction Status Date / Time Sulfa (Sulfonamide Allergy Unknown Verified 06/08/18 15:22 Antibiotics) Childhood Physical Exam Vitals: Vital Signs Temp Pulse Pulse Resp BP BP Pulse Ox 06/09/18 14:04 98.6 F 80 16 123/52 92 L 06/09/18 07:13 98.9 F 88 16 143/61 92 L 06/08/18 23:50 14 06/08/18 22:26 98.6 F 88 14 155/77 91 L 06/08/18 20:40 87 16 114/56 96 06/08/18 18:34 97.9 F 89 18 151/75 94 L 06/08/18 17:00 90 18 149/71 97 06/08/18 16:30 85 16 138/52 96 06/08/18 16:00 87 18 128/49 89 L Intake and Output 06/09/18 06/09/18 06/09/18 06:59 14:59 22:59 Intake Total 800 Output Total 400 Balance 400 Intake: IV 800 Sodium Chloride 0.9% 1, 800 000 ml @ 100 mls/hr IV . Q10H [facility] Rx#:[id number] Output: Gastric Drainage 400 Other: Voiding Method Toilet Bedside Commode # Voids 2 Results CBC & Chem 7: 06/08/18 15:22 06/08/18 15:20 Labs: Abnormal Lab Results - Last 24 Hours (Table) 06/08/18 06/08/18 06/09/18 Range/Units 15:20 15:22 03:30 WBC 13.1 H (3.8-10.6) k/uL Neutrophils # 11.8 H (1.3-7.7) k/uL Lymphocytes # 0.8 L (1.0-4.8) k/uL Glucose 133 H (74-99) mg/dL Ur Specific [place] 1.039 H (1.001-1.035) Urine Ketones 1+ H (Negative) Urine Blood Small H (Negative) Urine RBC 6 H (0-5) /hpf Ur Squamous Epith Cells 5 H (0-4) /hpf Urine Bacteria Rare H (None) /hpf Urine Mucus Rare H (None) /hpf Thrombosis Risk Factor Assmnt - Choose All That Apply Any of the Below Risk Factors Present?: No Other Risk Factors: Yes Each Risk Factor Represents 3 Points: Age 75 years or older Other congenital or acquired thrombophilia - If yes, enter type in comment: No Thrombosis Risk Factor Assessment Total Risk Factor Score: 3 Thrombosis Risk Factor Assessment Level: Moderate Risk
[2018-06-09] MEDS: ENOXAPARIN 40 MG/0.4 ML SYRINGE SQ SCH (20:19)
[2018-06-09] MEDS: LOSARTAN 50 MG TAB PO SCH (21:14)
[2018-06-10] MEDS: HYDROmorphone 1 MG/ML 1 ML SYRINGE IVP PRN ×2 (02:05→19:23)
[2018-06-10] MEDS: SODIUM CHLORIDE 0.9% 1,000 ML IV SCH ×3 (02:06→23:45)
[2018-06-10] MEDS: PANTOPRAZOLE 40 MG/10 ML VIAL IV SCH (08:36)
[2018-06-10] MEDS: ENOXAPARIN 40 MG/0.4 ML SYRINGE SQ SCH (08:36)
[2018-06-10 09:12] LABS: Basophils % (A) 0 %; Eosinophils # (A) 0.1 k/uL (0-0.7); Eosinophils % (A) 1 %; HCT 41.5 % (34.0-46.0); Lymphocytes # (A) 1.1 k/uL (1.0-4.8); Lymphocytes % (A) 12 %; MCH 30.6 pg (25.0-35.0); MCHC 31.3 g/dL (31.0-37.0); MCV 97.7 fL (80.0-100.0); Mean Platelet Volume 6.6; Monocytes # (A) 0.5 k/uL (0-1.0); Monocytes % (A) 6 %; Neutrophils # (A) 7.2 k/uL (1.3-7.7); Neutrophils % (A) 81 %; Platelet Count 229 k/uL (150-450); RBC 4.25 m/uL (3.80-5.40); RDW 12.7 % (11.5-15.5); WBC 8.9 k/uL (3.8-10.6)
[2018-06-10 09:30] LABS: Anion Gap 6 mmol/L; Blood Urea Nitrogen 17 mg/dL (7-17); Calcium 8.8 mg/dL (8.4-10.2); Carbon Dioxide 27 mmol/L (22-30); Chloride 110 mmol/L (98-107); Glucose 101 mg/dL (74-99); Potassium 4.2 mmol/L (3.5-5.1); Sodium 143 mmol/L (137-145)
--- NOTE | 2018-06-10 11:10 | P.PN ---
<Yuli Hernandez Mónica - Last Filed: 06/10/18 11:06> Subjective Progress Note Date: 06/10/18 CHIEF COMPLAINT: Abdominal pain HISTORY OF PRESENT ILLNESS: Patient seen and examined at bedside. Patient is awake and alert. Patient denies abdominal pain. She denies passing flatus. No bowel movement. She is tolerating ice chips. NG tube remains intact to low intermittent suction. Vital signs are stable. WBC 8.9. Potassium 4.2. Magnesium 2.0. PHYSICAL EXAM: VITAL SIGNS: Currently stable. GENERAL: Well-developed in no acute distress. HEENT: NG tube to LIS. No sclera icterus. Extraocular movements grossly intact. Moist buccal mucosa. Head is atraumatic, normocephalic. Hears conversational speech. No nasal drainage. NECK: Supple without lymphadenopathy. CHEST: Non-labored respirations and equal bilateral excursions. CARDIOVASCULAR: Regular rate with regular rhythm. Palpable 2+ radial pulses. ABDOMEN: Soft. Nondistended. No tenderness noted upon palpation. NG tube present. MUSCULOSKELETAL: No clubbing, cyanosis or edema. NEUROLOGIC: No focal or lateralizing signs. Cranial nerves II through XII grossly intact. PSYCH: Appropriate affect. Alert and oriented to person, place and time. SKIN: Well perfused. Good skin turgor. IMAGING: Per radiologist's dictation: 1. CT abdomen and pelvis: [id number] small bowel obstruction. Severe colonic diverticulosis. Minimal peritoneal fluid, likely reactive. ASSESSMENT: 1. Small bowel obstruction, likely secondary to abdominal adhesions 2. Diverticulosis without evidence of acute diverticulitis PLAN: 1. Continue NG to LIS 2. Patient may have ice chips as tolerated. May advance to clear liquids when patient begins passing flatus 3. Continue conservative management at this time. No immediate surgical intervention advised. Nurse practitioner note has been reviewed by physician. Signing provider agrees with the documented findings, assessment, and plan of care. Objective - Vital Signs Vital signs: Vital Signs Temp 98.8 F 06/10/18 06:10 Pulse 81 06/10/18 06:10 Resp 17 06/10/18 06:10 BP 134/74 06/10/18 06:10 Pulse Ox 93 L 06/10/18 06:10 Intake & Output 06/09/18 06/10/18 06/10/18 18:59 06:59 18:59 Intake Total 800 Output Total 400 50 Balance 400 -50 Intake: IV 800 Sodium Chloride 0.9% 1, 800 000 ml @ 100 mls/hr IV . Q10H [facility] Rx#:[id number] Output: Gastric Drainage 400 50 Other: Voiding Method Bedside Commode # Voids 1 2 - Labs CBC & Chem 7: 06/10/18 08:18 06/10/18 08:18 Labs: Abnormal Lab Results - Last 24 Hours (Table) 06/10/18 Range/Units 08:18 Chloride 110 H (98-107) mmol/L Glucose 101 H (74-99) mg/dL Assessment and Plan (1) Abdominal adhesions Current Visit: Yes Status: Acute Code(s): K66.0 - PERITONEAL ADHESIONS ( POSTPROCEDURAL) (POSTINFECTION) SNOMED Code(s): 112628466 (2) Diverticulosis Current Visit: Yes Status: Acute Code(s): K57.90 - DVRTCLOS OF INTEST, PART UNSP, W/O PERF OR ABSCESS W/O BLEED SNOMED Code(s): 42719416 (3) History of hysterectomy Current Visit: Yes Status: Acute Code(s): Z90.710 - ACQUIRED ABSENCE OF BOTH CERVIX AND UTERUS SNOMED Code(s): 795436598 (4) Abdominal pain Current Visit: Yes Status: Acute Code(s): R10.9 - UNSPECIFIED ABDOMINAL PAIN SNOMED Code(s): 82870108 (5) SBO (small bowel obstruction) Current Visit: Yes Status: Acute Code(s): K56.609 - UNSP INTESTNL OBST, UNSP TO PARTIAL VERSUS COMPLETE OBST SNOMED Code(s): 435595843 <Mitzi Delgadillo N - Last Filed: 06/12/18 12:24> Subjective Patient seen and evaluated. She denies any significant abdominal and is overall better. Await passage of flatus. No surgical intervention. Objective - Vital Signs Vital signs: Vital Signs Temp 101.7 F H 06/12/18 10:52 Pulse 90 06/12/18 10:52 Resp 18 06/12/18 10:52 BP 192/77 06/12/18 10:52 Pulse Ox 96 06/12/18 10:52 Intake & Output 01/26/19 01/27/19 01/27/19 18:59 06:59 18:59 Intake Total 0 0 Balance 0 0 Intake: IV 0 Oral 0 Other: Voiding Method Bedside Commode Bedside Commode Bedside Commode # Voids 1 2 # Bowel Movements 0 0 - Labs CBC & Chem 7: 06/10/18 08:18 06/12/18 08:26 Labs: Abnormal Lab Results - Last 24 Hours (Table) 06/12/18 Range/Units 08:26 Chloride 108 H (98-107) mmol/L Carbon Dioxide 19 L (22-30) mmol/L
[2018-06-10] MEDS: LOSARTAN 50 MG TAB PO SCH (20:42)
--- NOTE | 2018-06-10 23:01 | PN ---
PROGRESS NOTE DATE OF SERVICE: 06/10/2018 PRESENTING COMPLAINT: Abdominal pain. INTERVAL HISTORY: Patient admitted with small-bowel obstruction. I saw this patient earlier today. Remains to have the NG tube. Abdominal pain is better. Did pass some flatus. Lying in bed. REVIEW OF SYSTEMS: Done for constitutional, cardiovascular, GI, pulmonary; relevant findings as above. CURRENT MEDICATIONS: Reviewed. They include IV fluids. PHYSICAL EXAMINATION: VITAL SIGNS: Temperature 98.8, pulse 81, respirations 17, blood pressure 134/74, pulse ox 93% on room air. GENERAL APPEARANCE: Lying in bed, awake. EYES: Pupils equal. Conjunctivae normal. NECK: JVD not raised. Mass not palpable. RESPIRATORY: Effort normal. Lungs are clear. CARDIOVASCULAR: First and second sounds normal. No edema. ABDOMEN: Soft. Less distended Bowel sounds are present. No tenderness. PSYCHIATRY: Alert and oriented x3. Mood and affect normal. HEENT: NG tube in place. INVESTIGATIONS: White count 8.9, hemoglobin 13.0, potassium 4.2. ASSESSMENT: 1. Acute small-bowel obstruction. Patient remains to have an NG tube placed, with clinical improvement. 2. Gastroesophageal reflux disease. 3. Essential hypertension. 4. Primary osteoarthritis, especially in the hands. 5. Chronic severe colonic diverticulosis. PLAN: Continue current medication and treatment plan. Follow up with General Surgery. Care was discussed with the patient. MMODL / IJN: [id number] /
[2018-06-11] MEDS: ENOXAPARIN 40 MG/0.4 ML SYRINGE SQ SCH (08:11)
[2018-06-11] MEDS: PANTOPRAZOLE 40 MG/10 ML VIAL IV SCH (08:11)
[2018-06-11] MEDS: SODIUM CHLORIDE 0.9% 1,000 ML IV SCH ×2 (08:12→21:59)
--- NOTE | 2018-06-11 11:53 | P.PN ---
Progress Note - Text Progress Note Date: 06/11/18 The patient is resting comfortably bed. She's had no significant flatus. Her NG tube has some bilious fluid. On exam her vital signs are stable. Her abdomen soft. Persistent small bowel obstruction. Patient will remain with NG tube.
[2018-06-11] MEDS ORDERED: PANTOPRAZOLE 40 MG/10 ML VIAL ONE (16:00)
[2018-06-11] MEDS ORDERED: cloNIDine 0.1 MG/24HR PATCH TRANSDERM ONE (16:00)
[2018-06-11] MEDS ORDERED: HYDROmorphone 0.5 MG/0.5 ML SYRINGE ONE (16:00)
--- NOTE | 2018-06-11 20:40 | PN ---
PROGRESS NOTE DATE OF SERVICE: 06/11/17. PRESENTING COMPLAINT: Bowel obstruction. INTERVAL HISTORY: Patient admitted with small-bowel obstruction. NG tube remains in place. Bilious output abdominal pain is greatly improved. Passed some flatus, remains in bed. No nausea or vomiting. REVIEW OF SYSTEMS: Done for constitutional, cardiovascular, GI, pulmonary; relevant findings as above. CURRENT MEDICATIONS: Reviewed and include normal saline. PHYSICAL EXAMINATION: VITAL SIGNS: Temperature 98.6, pulse 83, respiratory 18, blood pressure 117/74, pulse ox 93% on room air. GENERAL APPEARANCE: Lying in bed, awake. EYES: Pupils equal. Conjunctivae normal. HEENT: External appearance of nose and ears normal. Oral cavity dry. NG tube in place. Neck: JVD not. RESPIRATORY: Effort normal. LUNGS are clear. CARDIOVASCULAR: First and second sounds normal. No edema. ABDOMEN: Soft. Minimal tenderness. Bowel sounds are present. PSYCHIATRY: Alert and oriented x3. Mood and affect normal. INVESTIGATIONS: No blood work from today, the patient had 250 mL out in the bowl. ASSESSMENT: 1. Acute small-bowel obstruction with NG tube in place with clinical improvement. 2. Gastroesophageal reflux disease. 3. Essential hypertension. 4. Primary osteoarthritis especially of the hands. 5. Chronic severe colonic diverticulosis. PLAN: We will check followup x-ray in the morning. Continue with IV fluids. Check labs in the morning. MMODL / IJN: [id number] /
[2018-06-11] MEDS: LOSARTAN 50 MG TAB PO SCH (21:58)
[2018-06-12] MEDS: SODIUM CHLORIDE 0.9% 1,000 ML IV SCH ×2 (05:28→17:35)
--- NOTE | 2018-06-12 07:14 | XR ---
EXAMINATION TYPE: XR abdomen 2V , 3 VIEWS DATE OF EXAM ORDERED: 06/12/2018 HISTORY: f/u ileus. COMPARISON: Previous study dated 06/09/2018. FINDINGS: An NG tube is in place with tip in the stomach. There are moderately dilated small bowel l oops. There are scattered air-fluid levels. There is no free air. There is no significant colonic air . IMPRESSION: FOLLOWS MAY REPRESENT A LOCALIZED DILATED MORE SUSPICIOUS THAT THIS REPRESENTS A CLOSED LOOP OBSTRUCTION.
[2018-06-12] MEDS: ENOXAPARIN 40 MG/0.4 ML SYRINGE SQ SCH (07:58)
[2018-06-12 09:38] LABS: Anion Gap 11 mmol/L; Blood Urea Nitrogen 13 mg/dL (7-17); Calcium 8.8 mg/dL (8.4-10.2); Carbon Dioxide 19 mmol/L (22-30); Chloride 108 mmol/L (98-107); Glucose 86 mg/dL (74-99); Potassium 3.8 mmol/L (3.5-5.1); Sodium 138 mmol/L (137-145)
--- NOTE | 2018-06-12 09:57 | P.PN ---
Progress Note - Text Progress Note Date: 06/12/18 The patient had more nausea and epigastric pain this morning. She underwent a x -ray of the abdomen. Patient appears to have a complete small bowel obstruction with closed loop obstruction. On exam her vital signs appear stable. Patient is increased tenderness in the epigastric area. Patient will undergo exposure laparotomy lysis of adhesions today for closed loop obstruction. I discussed the risk of bowel resection.
[2018-06-12] MEDS ORDERED: SODIUM CHLORIDE 0.9% 1,000 ML IV ONE (10:52)
[2018-06-12 11:23] LABS: Glucose,Whole Blood 81 mg/dL (75-99)
--- NOTE | 2018-06-12 12:29 | P.OP ---
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 She received general anesthesia. Her radiologic drain was cut and removed. There was stool leaking out around the drain. The abdomen was prepped and draped usual sterile fashion. The abdomen was entered through midline incision. Upon entering the midline there was a large jose of air. There was obvious fecal peritonitis of the perineal cavity. The Bookwalter retractors placed a wound. The cecum right colon and transverse colon appeared to be dilated. The small bowel appeared to be dilated. There was a phlegmonous mass in the left lower quadrant related to the sigmoid colon. The mass contained the appendix and 2 loops of small bowel. The mass was very hard and appeared to be chronically inflamed. The bowel perforation appeared to be at the level sigmoid colon. The mass was dissected off the lateral pelvic wall. And then using the BRIANNE stapler the proximal colon was transected and then using the GI stapler the rectum was transected. The small bowel could not be dissected off the mass. The small bowel loops were transected with a GI stapler. And then the appendix was transected as well. The appendix was caught up into the mass as well. At this point the small bowel was examined. There appeared to be a Meckel's diverticulum just proximal to the staple transection line. The mesentery the bowel was divided. And then the small bowel was transected again. The specimen sent to pathology. The sigmoid colon mesentery was divided with the Enseal device and sent to pathology. A [id number] functional end-to-end staple anastomosis created between the areas of the 2 small bowel resections. A 3-0 GI silk suture was used as a crotch stitch. The splenic flexure was then taken down with the Enseal device. And then the left colon was mobilized. The white line of Toldt was divided. There was adequate length for colostomy. The abdomen was irrigated with 5 L of normal saline. A suitable spot for classic brought the left upper quadrant. The fascia closed with looped #1 PDS suture. The wound was packed open and packed with wet-to-dry Kerlix. The colostomy was then matured with 3-0 Vicryl suture. The a she was sent to the ICU intubated in critical condition.
[2018-06-12] MEDS ORDERED: fentaNYL (PF) 50 MCG/ML 2 ML AMP ONE (13:14)
[2018-06-12] MEDS ORDERED: GLYCOPYRROLATE 0.2 MG/ML 2 ML VIAL ONE (13:14)
[2018-06-12] MEDS ORDERED: ROCURONIUM BROMIDE 10 MG/ML 10 ML VIAL IV ONE (13:14)
[2018-06-12] MEDS ORDERED: PROPOFOL 10 MG/ML 20 ML VIAL IV ONE (13:14)
[2018-06-12] MEDS ORDERED: PHENYLEPHRINE-0.9% NACL SYG 1 MG/10 ML SYRINGE ONE (13:14)
[2018-06-12] MEDS ORDERED: LIDOCAINE 1% INJ 10MG/ML (20 ML MDV) ONE (13:14)
[2018-06-12] MEDS ORDERED: NEOSTIGMINE 1 MG/ML 10 ML VIAL ONE (13:14)
[2018-06-12] MEDS ORDERED: SUCCINYLCHOLINE CHLORIDE 100 MG/5 ML SYR IV ONE (13:14)
[2018-06-12] MEDS ORDERED: SODIUM CHLORIDE 0.9% 50 ML with ceFAZolin 2,000 MG IV ONE ×2 (13:49)
[2018-06-12] MEDS ORDERED: LACTATED RINGERS 1,000 ML IV ONE ×2 (14:33→14:44)
[2018-06-12] MEDS ORDERED: NALOXONE 0.4 MG/ML 1 ML VIAL IV PRN (14:44)
[2018-06-12] MEDS ORDERED: HYDROcodone/APAP 5-325MG 1 EACH TAB PO PRN (14:44)
--- NOTE | 2018-06-12 14:49 | P.OP ---
Date of Procedure: 06/12/18 Preoperative Diagnosis: Small bowel obstruction Postoperative Diagnosis: Small bowel obstruction secondary to closed loop obstruction with bowel ischemia Procedure(s) Performed: Lysis of adhesions Small bowel resection Anesthesia: MAC Surgeon: Alexandr Macedo Estimated Blood Loss (ml): 10 Pathology: other (Ileum) Condition: stable Disposition: PACU Description of Procedure: The patient's placed on the operative table in the supine position. She received general anesthesia. Her abdomen was prepped and draped usual sterile fashion. The abdomen was entered through midline incision. The Bookwalter tract with wound. The small bowel appeared to be dilated. The small bowel was run down to the pelvis and in the pelvis there was a closed loop obstruction. Patient had a previous pelvic sling there was mesh seen in the pelvis. Small bowel was adhered to the mesh. Using sharp dissection the adhesion was lysed. The small bowel appeared ischemic. This point a small bowel resection was performed. Small bowel was transected with a GI stapler. And then using the Enseal device the mesentery the bowel was divided. A xdtb-si-tyrh functional end-to-end staple anastomosis created using the BRIANNE and TA staplers. A 3-0 GI silk sutures using a crotch stitch. The abdomen was irrigated there is no bleeding seen. The fascia was closed with looped #1 PDS suture. Skin was closed chris. Patient top procedure well and was sent to recovery room stable condition.
[2018-06-12] MEDS ORDERED: HYDROmorphone 1 MG/ML 1 ML SYRINGE IVP ONE ×3 (14:57→15:25)
[2018-06-12] MEDS: HYDROmorphone 1 MG/ML 1 ML SYRINGE IVP PRN ×2 (16:19→22:49)
[2018-06-12] MEDS: cloNIDine 0.1 MG/24HR PATCH TRANSDERM SCH (17:34)
[2018-06-12] MEDS: LOSARTAN 50 MG TAB PO SCH (21:16)
[2018-06-12] MEDS: LACTATED RINGERS 1,000 ML IV SCH (22:52)
--- NOTE | 2018-06-12 23:37 | PN ---
PROGRESS NOTE DATE OF SERVICE: 06/12/2018 PRESENTING COMPLAINT: Bowel obstruction. INTERVAL HISTORY: Patient admitted with small-bowel obstruction. Taken to the OR today by Dr. Macedo. Surgery was done. NG tube remains in place. The patient has got a wound VAC with incision. The patient's family at the bedside. The patient appears comfortable. REVIEW OF SYSTEMS: Done for constitutional, cardiovascular, GI, pulmonary; relevant findings as above. CURRENT MEDICATIONS: Reviewed that include Catapres patch and IV fluids. PHYSICAL EXAMINATION: VITAL SIGNS: Temperature 98.2, pulse 63, respiratory rate 16, blood pressure 140/73, pulse ox 98% on 6 L. GENERAL APPEARANCE: Lying in bed, awake. EYES: Pupils are equal. Conjunctivae normal. HEENT oral cavity dry. NG tube in place. NECK: JVD not raised. Mass not palpable. RESPIRATORY: Effort normal. LUNGS: Decreased breath sounds. CARDIOVASCULAR: First and second sounds normal. No edema. ABDOMEN: Soft. Dressing over the incision site. Tenderness present. Bowel sounds are sluggish. PSYCHIATRY: Alert and oriented x3. Mood and affect normal. INVESTIGATIONS: White count potassium 3.8. ASSESSMENT: 1. Small-bowel obstruction followed by surgery with NG tube in place. 2. Gastroesophageal reflux disease. 3. Essential hypertension. 4. Primary osteoarthritis especially of the hands. 5. Chronic severe colonic diverticulosis. PLAN: Continue current medication and treatment plan. Patient to keep on IV fluids. Patient otherwise n.p.o. MMODL / IJN: [id number] /
[2018-06-13] MEDS: HYDROmorphone 1 MG/ML 1 ML SYRINGE IVP PRN ×2 (09:15→17:28)
[2018-06-13] MEDS: LACTATED RINGERS 1,000 ML IV SCH ×2 (09:16→18:26)
[2018-06-13] MEDS: ENOXAPARIN 40 MG/0.4 ML SYRINGE SQ SCH (09:16)
[2018-06-13 09:48] LABS: Anion Gap 10 mmol/L; Blood Urea Nitrogen 15 mg/dL (7-17); Calcium 8.4 mg/dL (8.4-10.2); Carbon Dioxide 20 mmol/L (22-30); Chloride 107 mmol/L (98-107); Glucose 87 mg/dL (74-99); Potassium 3.6 mmol/L (3.5-5.1); Sodium 137 mmol/L (137-145)
--- NOTE | 2018-06-13 11:55 | P.PN ---
Subjective Progress Note Date: 06/13/18 CHIEF COMPLAINT: Abdominal pain HISTORY OF PRESENT ILLNESS: Patient seen and examined at bedside. Patient underwent small bowel resection secondary to closed loop obstruction with bowel ischemia. She is POD #1. NG tube is intact with bilious drainage. Patient states her pain is tolerable at this time. She is tolerating ice chips. She denies passing flatus. PHYSICAL EXAM: VITAL SIGNS: Currently stable. GENERAL: Well-developed in no acute distress. HEENT: NG tube to LIS. No sclera icterus. Extraocular movements grossly intact. Moist buccal mucosa. Head is atraumatic, normocephalic. Hears conversational speech. No nasal drainage. NECK: Supple without lymphadenopathy. CHEST: Non-labored respirations and equal bilateral excursions. CARDIOVASCULAR: Regular rate with regular rhythm. Palpable 2+ radial pulses. ABDOMEN: Soft. Nondistended. Hypoactive bowel sounds. PREVENA wound VAC in place. MUSCULOSKELETAL: No clubbing, cyanosis or edema. NEUROLOGIC: No focal or lateralizing signs. Cranial nerves II through XII grossly intact. PSYCH: Appropriate affect. Alert and oriented to person, place and time. SKIN: Well perfused. Good skin turgor. ASSESSMENT: 1. Small bowel obstruction secondary to closed loop obstruction with bowel ischemia, status post lysis of adhesions and small bowel resection, POD #1 PLAN: 1. Continue NG to LIS 2. Patient may have ice chips as tolerated. May advance to clear liquids when patient begins passing flatus 3. Discontinue Kennedy 4. Await return of bowel function 5. Incentive spirometry 6. Activity as tolerated 7. Begin TPN Nurse practitioner note has been reviewed by physician. Signing provider agrees with the documented findings, assessment, and plan of care. Objective - Vital Signs Vital signs: Vital Signs Temp 99.8 F H 06/13/18 06:12 Pulse 86 06/13/18 06:12 Resp 17 06/13/18 06:12 BP 149/69 06/13/18 06:12 Pulse Ox 93 L 06/13/18 06:12 Intake & Output 06/12/18 06/13/18 06/13/18 18:59 06:59 18:59 Intake Total 750 Output Total 450 575 Balance 300 -575 Intake: IV 750 Output: Gastric Drainage 175 Urine 400 400 Estimated Blood Loss 50 Other: Voiding Method Indwelling Catheter Indwelling Catheter Indwelling Catheter # Voids 1 - Labs CBC & Chem 7: 06/10/18 08:18 06/13/18 07:50 Labs: Abnormal Lab Results - Last 24 Hours (Table) 06/13/18 Range/Units 07:50 Carbon Dioxide 20 L (22-30) mmol/L Assessment and Plan (1) Abdominal adhesions Current Visit: Yes Status: Acute Code(s): K66.0 - PERITONEAL ADHESIONS ( POSTPROCEDURAL) (POSTINFECTION) SNOMED Code(s): 975206376 (2) Diverticulosis Current Visit: Yes Status: Acute Code(s): K57.90 - DVRTCLOS OF INTEST, PART UNSP, W/O PERF OR ABSCESS W/O BLEED SNOMED Code(s): 46752671 (3) History of hysterectomy Current Visit: Yes Status: Acute Code(s): Z90.710 - ACQUIRED ABSENCE OF BOTH CERVIX AND UTERUS SNOMED Code(s): 242320843 (4) Abdominal pain Current Visit: Yes Status: Acute Code(s): R10.9 - UNSPECIFIED ABDOMINAL PAIN SNOMED Code(s): 84578786 (5) SBO (small bowel obstruction) Current Visit: Yes Status: Acute Code(s): K56.609 - UNSP INTESTNL OBST, UNSP TO PARTIAL VERSUS COMPLETE OBST SNOMED Code(s): 101479569
[2018-06-13 12:02] VITALS: BMI 25.2
[2018-06-13 15:39] LABS: Albumin 2.6 g/dL (3.5-5.0); Magnesium 1.8 mg/dL (1.6-2.3); Phosphorus 2.7 mg/dL (2.5-4.5)
[2018-06-13] MEDS: MVI, ADULT NO.4 WITH VIT K 10 ML, TRACE (CONC-1ML/DOSE) 1 ML in AMINO ACID 4.25%-D10W+L... IV SCH ×3 (17:28)
[2018-06-13 17:56] LABS: Glucose,Whole Blood 87 mg/dL (75-99)
[2018-06-13] MEDS: FAT EMULSION 20% 250 ML IV SCH (18:25)
[2018-06-13] MEDS: LOSARTAN 50 MG TAB PO SCH (21:25)
[2018-06-14] MEDS: HYDROmorphone 1 MG/ML 1 ML SYRINGE IVP PRN ×2 (02:07→13:36)
--- NOTE | 2018-06-14 03:17 | PN ---
PROGRESS NOTE DATE OF SERVICE: June 13, 2018. PRESENTING COMPLAINT: Bowel obstruction. INTERVAL HISTORY: The patient admitted with small bowel obstruction status post surgery. NG tube remains in place. Minimal flatus. No abdominal pain. No nausea, vomiting. Has got an abdominal wound VAC in place. Lying in bed. REVIEW OF SYSTEMS: Done for constitutional, cardiovascular, GI, pulmonary; relevant findings as above. CURRENT MEDICATIONS: Reviewed. PHYSICAL EXAMINATION: VITAL SIGNS: Temperature 98.9, pulse 83, respiratory 18, blood pressure 115/72, pulse ox 93 percent on 2 L. GENERAL APPEARANCE: Lying in bed, awake. EYES: Pupils are equal. Conjunctivae normal. NECK: JVD not raised. Mass not palpable. HEENT oral cavity dry. NG tube in place. RESPIRATORY: Effort normal. LUNGS: Decreased breath sounds. CARDIOVASCULAR: First and second sounds no edema. ABDOMEN: Soft. Wound VAC in place. Minimal tenderness. Bowel sounds sluggish. PSYCHIATRY: Alert and oriented x3. Mood and affect normal. INVESTIGATIONS: Potassium 3.6. ASSESSMENT: 1. Bowel obstruction followed by surgery with NG tube in place. 2. Gastroesophageal reflux disease. 3. Essential hypertension. 4. Primary osteoarthritis especially of the hands. 5. Chronic severe colonic diverticulosis. PLAN: Continue current medication and treatment plan including IV fluids. Care was discussed with the patient. Patient remains n.p.o. MMODL / IJN: [id number] /
[2018-06-14 05:29] LABS: Glucose,Whole Blood 122 mg/dL (75-99)
[2018-06-14] MEDS: LACTATED RINGERS 1,000 ML IV SCH ×2 (05:59→17:06)
[2018-06-14] MEDS: ENOXAPARIN 40 MG/0.4 ML SYRINGE SQ SCH (08:17)
[2018-06-14] MEDS: FAT EMULSION 20% 250 ML IV SCH (08:59)
[2018-06-14 09:07] LABS: Anion Gap 3 mmol/L; Blood Urea Nitrogen 16 mg/dL (7-17); Calcium 8.3 mg/dL (8.4-10.2); Carbon Dioxide 28 mmol/L (22-30); Chloride 105 mmol/L (98-107); Glucose 149 mg/dL (74-99); Magnesium 1.8 mg/dL (1.6-2.3); Phosphorus 1.9 mg/dL (2.5-4.5); Potassium 3.2 mmol/L (3.5-5.1); Sodium 136 mmol/L (137-145)
[2018-06-14 11:50] LABS: Glucose,Whole Blood 150 mg/dL (75-99)
--- NOTE | 2018-06-14 12:46 | P.PN ---
Subjective Progress Note Date: 06/14/18 CHIEF COMPLAINT: Abdominal pain HISTORY OF PRESENT ILLNESS: Patient seen and examined at bedside. Patient underwent small bowel resection secondary to closed loop obstruction with bowel ischemia. She is POD #2. Patient states her pain is tolerable at this time. Denies passing flatus. No BM. Tolerating ice chips. PHYSICAL EXAM: VITAL SIGNS: Currently stable. GENERAL: Well-developed in no acute distress. HEENT: NG tube to LIS. No sclera icterus. Extraocular movements grossly intact. Moist buccal mucosa. Head is atraumatic, normocephalic. Hears conversational speech. No nasal drainage. NECK: Supple without lymphadenopathy. CHEST: Non-labored respirations and equal bilateral excursions. CARDIOVASCULAR: Regular rate with regular rhythm. Palpable 2+ radial pulses. ABDOMEN: Soft. Nondistended. Hypoactive bowel sounds. PREVENA wound VAC in place. MUSCULOSKELETAL: No clubbing, cyanosis or edema. NEUROLOGIC: No focal or lateralizing signs. Cranial nerves II through XII grossly intact. PSYCH: Appropriate affect. Alert and oriented to person, place and time. SKIN: Well perfused. Good skin turgor. ASSESSMENT: 1. Small bowel obstruction secondary to closed loop obstruction with bowel ischemia, status post lysis of adhesions and small bowel resection, POD #2 PLAN: 1. Discontinue NG 2. Patient may have ice chips as tolerated. May advance to clear liquids when patient begins passing flatus 3. Await return of bowel function 4. Increase activity as tolerated 5. Continue TPN 6. Begin Reglan 10 mg IV every 6 hours Nurse practitioner note has been reviewed by physician. Signing provider agrees with the documented findings, assessment, and plan of care. Objective - Vital Signs Vital signs: Vital Signs Temp 98.4 F 06/14/18 07:00 Pulse 91 06/14/18 07:00 Resp 16 06/14/18 08:00 BP 144/75 06/14/18 07:00 Pulse Ox 92 L 06/14/18 07:00 Intake & Output 06/13/18 06/14/18 06/14/18 18:59 06:59 18:59 Intake Total 800 369.5 Output Total 700 100 Balance 100 269.5 Weight 58.513 kg Intake: Intake, IV Titration 800 369.5 Amount Lactated Ringers 1,000 ml 800 @ 100 mls/hr IV .Q10H PABLO Rx#:[id number] Mvi, Adult No.4 with Vit 369.5 K 10 ml Trace (Conc-1Ml/ Dose) 1 ml In Amino Acid 4.25%-D10w+Lytes*E* 1,000 ml @ 30 mls/hr IV .Q24H PABLO Rx#:[id number] Oral 0 Output: Gastric Drainage 100 Drainage 200 Abdomen 200 Urine 500 Other: Voiding Method Indwelling Catheter Bedside Commode # Voids 1 1 - Labs CBC & Chem 7: 06/10/18 08:18 06/14/18 08:14 Labs: Abnormal Lab Results - Last 24 Hours (Table) 06/13/18 06/14/18 06/14/18 Range/Units 15:03 05:27 08:14 Sodium 136 L (137-145) mmol/L Potassium 3.2 L (3.5-5.1) mmol/L Glucose 149 H (74-99) mg/dL POC Glucose (mg/dL) 122 H (75-99) mg/dL Calcium 8.3 L (8.4-10.2) mg/dL Phosphorus 1.9 L (2.5-4.5) mg/dL Albumin 2.6 L (3.5-5.0) g/dL 06/14/18 Range/Units 11:34 Sodium (137-145) mmol/L Potassium (3.5-5.1) mmol/L Glucose (74-99) mg/dL POC Glucose (mg/dL) 150 H (75-99) mg/dL Calcium (8.4-10.2) mg/dL Phosphorus (2.5-4.5) mg/dL Albumin (3.5-5.0) g/dL Assessment and Plan (1) Abdominal adhesions Current Visit: Yes Status: Acute Code(s): K66.0 - PERITONEAL ADHESIONS ( POSTPROCEDURAL) (POSTINFECTION) SNOMED Code(s): 248872382 (2) Diverticulosis Current Visit: Yes Status: Acute Code(s): K57.90 - DVRTCLOS OF INTEST, PART UNSP, W/O PERF OR ABSCESS W/O BLEED SNOMED Code(s): 27334744 (3) History of hysterectomy Current Visit: Yes Status: Acute Code(s): Z90.710 - ACQUIRED ABSENCE OF BOTH CERVIX AND UTERUS SNOMED Code(s): 117713394 (4) Abdominal pain Current Visit: Yes Status: Acute Code(s): R10.9 - UNSPECIFIED ABDOMINAL PAIN SNOMED Code(s): 70556379 (5) SBO (small bowel obstruction) Current Visit: Yes Status: Acute Code(s): K56.609 - UNSP INTESTNL OBST, UNSP TO PARTIAL VERSUS COMPLETE OBST SNOMED Code(s): 338327124
[2018-06-14] MEDS: POTASSIUM PHOSPHATE 10 MMOL in SODIUM CHLORIDE 0.9% 250 ML IV SCH ×2 (13:29→17:06)
[2018-06-14] MEDS: MVI, ADULT NO.4 WITH VIT K 10 ML, TRACE (CONC-1ML/DOSE) 1 ML in AMINO ACID 4.25%-D10W+L... IV SCH ×6 (17:11→18:08)
[2018-06-14 17:37] LABS: Glucose,Whole Blood 135 mg/dL (75-99)
[2018-06-14] MEDS: METOCLOPRAMIDE 5 MG/ML 2 ML VIAL IVP SCH (18:03)
[2018-06-14] MEDS ORDERED: Potassium Replacement Protocol 1 EACH MISC MISCELLANE PRN (20:56)
[2018-06-14] MEDS: LOSARTAN 50 MG TAB PO SCH (22:21)
[2018-06-14 23:57] LABS: Glucose,Whole Blood 130 mg/dL (75-99)
[2018-06-15] MEDS: METOCLOPRAMIDE 5 MG/ML 2 ML VIAL IVP SCH ×4 (01:21→17:13)
[2018-06-15] MEDS: LACTATED RINGERS 1,000 ML IV SCH ×2 (01:27→22:10)
[2018-06-15] MEDS: KETOROLAC 30 MG/ML 1 ML VIAL IVP PRN (03:06)
[2018-06-15] MEDS: ONDANSETRON 4 MG/2 ML VIAL IVP PRN (04:38)
[2018-06-15 06:50] LABS: Glucose,Whole Blood 155 mg/dL (75-99)
[2018-06-15] MEDS: FAT EMULSION 20% 250 ML IV SCH (08:35)
[2018-06-15] MEDS: ENOXAPARIN 40 MG/0.4 ML SYRINGE SQ SCH (08:47)
[2018-06-15 09:12] LABS: Basophils % (A) 0 %; Eosinophils # (A) 0.1 k/uL (0-0.7); Eosinophils % (A) 1 %; HCT 42.3 % (34.0-46.0); HGB 13.4 gm/dL (11.4-16.0); Lymphocytes # (A) 0.9 k/uL (1.0-4.8); Lymphocytes % (A) 9 %; MCH 30.5 pg (25.0-35.0); MCHC 31.7 g/dL (31.0-37.0); MCV 96.2 fL (80.0-100.0); Mean Platelet Volume 7.8; Monocytes # (A) 0.5 k/uL (0-1.0); Monocytes % (A) 4 %; Neutrophils # (A) 8.6 k/uL (1.3-7.7); Neutrophils % (A) 85 %; Platelet Count 241 k/uL (150-450); RDW 12.7 % (11.5-15.5); WBC 10.1 k/uL (3.8-10.6)
[2018-06-15 09:32] LABS: ALT 24 U/L (9-52); AST 23 U/L (14-36); Alkaline Phosphatase 43 U/L (38-126); Anion Gap 9 mmol/L; Blood Urea Nitrogen 18 mg/dL (7-17); Carbon Dioxide 28 mmol/L (22-30); Chloride 102 mmol/L (98-107); Glucose 165 mg/dL (74-99); Phosphorus 3.4 mg/dL (2.5-4.5); Potassium 3.6 mmol/L (3.5-5.1); Sodium 139 mmol/L (137-145); Total Bilirubin 0.6 mg/dL (0.2-1.3); Total Protein 5.8 g/dL (6.3-8.2)
[2018-06-15] MEDS: POTASSIUM CHLORIDE 10 MEQ in WATER FOR INJECTION 1 100ML.BAG IVPB SCH ×2 (11:03→12:04)
--- NOTE | 2018-06-15 11:14 | P.PN ---
Subjective Progress Note Date: 06/15/18 CHIEF COMPLAINT: Abdominal pain HISTORY OF PRESENT ILLNESS: Patient seen and examined at bedside. Patient underwent small bowel resection secondary to closed loop obstruction with bowel ischemia. She is POD #3. Patient states her pain is tolerable at this time. States she is passing some flatus. No BM. Tolerating ice chips. PHYSICAL EXAM: VITAL SIGNS: Currently stable. GENERAL: Well-developed in no acute distress. HEENT: NG tube to LIS. No sclera icterus. Extraocular movements grossly intact. Moist buccal mucosa. Head is atraumatic, normocephalic. Hears conversational speech. No nasal drainage. NECK: Supple without lymphadenopathy. CHEST: Non-labored respirations and equal bilateral excursions. CARDIOVASCULAR: Regular rate with regular rhythm. Palpable 2+ radial pulses. ABDOMEN: Soft. Nondistended. Hypoactive bowel sounds. PREVENA wound VAC in place. MUSCULOSKELETAL: No clubbing, cyanosis or edema. NEUROLOGIC: No focal or lateralizing signs. Cranial nerves II through XII grossly intact. PSYCH: Appropriate affect. Alert and oriented to person, place and time. SKIN: Well perfused. Good skin turgor. ASSESSMENT: 1. Small bowel obstruction secondary to closed loop obstruction with bowel ischemia, status post lysis of adhesions and small bowel resection PLAN: 1. Continue TPN 2. Continue Reglan 3. May start clear liquid diet. Patient advised to go slow with liquids to see how she tolerates them 4. Increase activity as tolerated Nurse practitioner note has been reviewed by physician. Signing provider agrees with the documented findings, assessment, and plan of care. Objective - Vital Signs Vital signs: Vital Signs Temp 98.3 F 06/15/18 07:02 Pulse 95 06/15/18 07:02 Resp 16 06/15/18 08:00 BP 160/71 06/15/18 07:02 Pulse Ox 92 L 06/15/18 07:02 Intake & Output 06/14/18 06/15/18 06/15/18 18:59 06:59 18:59 Output Total 290 Balance -290 Output: Gastric Drainage 90 Urine 200 Other: Voiding Method Bedside Commode Bedside Commode Bedside Commode # Voids 1 4 - Labs CBC & Chem 7: 06/15/18 08:29 06/15/18 08:29 Labs: Abnormal Lab Results - Last 24 Hours (Table) 06/14/18 06/14/1806/14/19 Range/Units 11:34 17:33 23:56 Neutrophils # (1.3-7.7) k/uL Lymphocytes # (1.0-4.8) k/uL BUN (7-17) mg/dL Creatinine (0.52-1.04) mg/dL Glucose (74-99) mg/dL POC Glucose (mg/dL) 150 H 135 H 130 H (75-99) mg/dL Total Protein (6.3-8.2) g/dL Albumin (3.5-5.0) g/dL 06/15/18 06/15/18 06/15/18 Range/Units 06:49 08:29 08:29 Neutrophils # 8.6 H (1.3-7.7) k/uL Lymphocytes # 0.9 L (1.0-4.8) k/uL BUN 18 H (7-17) mg/dL Creatinine 0.49 L (0.52-1.04) mg/dL Glucose 165 H (74-99) mg/dL POC Glucose (mg/dL) 155 H (75-99) mg/dL Total Protein 5.8 L (6.3-8.2) g/dL Albumin 3.0 L (3.5-5.0) g/dL Assessment and Plan (1) Abdominal adhesions Current Visit: Yes Status: Acute Code(s): K66.0 - PERITONEAL ADHESIONS ( POSTPROCEDURAL) (POSTINFECTION) SNOMED Code(s): 834369864 (2) Diverticulosis Current Visit: Yes Status: Acute Code(s): K57.90 - DVRTCLOS OF INTEST, PART UNSP, W/O PERF OR ABSCESS W/O BLEED SNOMED Code(s): 92503192 (3) History of hysterectomy Current Visit: Yes Status: Acute Code(s): Z90.710 - ACQUIRED ABSENCE OF BOTH CERVIX AND UTERUS SNOMED Code(s): 957506705 (4) Abdominal pain Current Visit: Yes Status: Acute Code(s): R10.9 - UNSPECIFIED ABDOMINAL PAIN SNOMED Code(s): 79122601 (5) SBO (small bowel obstruction) Current Visit: Yes Status: Acute Code(s): K56.609 - UNSP INTESTNL OBST, UNSP TO PARTIAL VERSUS COMPLETE OBST SNOMED Code(s): 797275036
[2018-06-15] MEDS ORDERED: PANTOPRAZOLE 40 MG/10 ML VIAL IVP SCH (11:30)
[2018-06-15 13:33] LABS: Glucose,Whole Blood 149 mg/dL (75-99)
--- NOTE | 2018-06-15 14:34 | XR ---
EXAMINATION TYPE: XR chest 2V DATE OF EXAM: 06/15/2018 COMPARISON: Prior chest x-ray 04/22/2017 HISTORY: Abnormal physical exam TECHNIQUE: Frontal and lateral views of the chest are obtained. FINDINGS: Bibasilar increased density is present with blunting the costophrenic angles. No evident p neumothorax. Heart size may be exaggerated by rotation. Aorta is dense. Prominent lung volume may be indicative of underlying COPD. IMPRESSION: Bibasilar pleural effusions and associated atelectasis, correlate to exclude pneumonia.
[2018-06-15] MEDS: MVI, ADULT NO.4 WITH VIT K 10 ML, TRACE (CONC-1ML/DOSE) 1 ML in AMINO ACID 4.25%-D10W+L... IV SCH ×3 (16:34)
[2018-06-15 17:07] LABS: Glucose,Whole Blood 203 mg/dL (75-99)
--- NOTE | 2018-06-15 17:24 | IR ---
EXAMINATION TYPE: IR cvc insert >=5 years DATE OF EXAM: 06/15/2018 COMPARISON: NONE CLINICAL HISTORY: Infection Needs long-term intravenous access for antibiotics. PROCEDURE: After informed consent, the skin overlying the left brachial vein was localized with ultrasound and n oted to be compressible and patent. An ultrasound image was obtained and submitted on the patient's chart. The overlying skin was prepped and draped and Lidocaine was used for local anesthesia. A ski n marina was made with a scalpel. Access was gained to the vein under ultrasound guidance with a 21 ga uge needle and a 0.018 inch wire was advanced. Access site was dilated with Peel-Away sheath and cat heter tailored to the appropriate length and advanced such that the distal tip is at the cavoatrial j unction. Spot image was obtained verifying placement. Catheter was fixed to the skin and a sterile dressing was placed following hemostasis. Catheter was aspirated and flushed with saline. Patient w as discharged in stable condition without complication. Maximal barrier technique is utilized. Ultra sound image is documented on the chart. Ultrasound used with sterile technique. Fluoro time and fluoroscopic images submitted to document procedure: 0.1 minutes fluoroscopy time, 13 intraoperative images document the procedure IMPRESSION: STATUS POST ULTRASOUND AND FLUOROSCOPIC GUIDED PICC LINE PLACEMENT, READY FOR USE. THIS PROCEDURE WAS PERFORMED BY THE UNDERSIGNED.
[2018-06-15] MEDS ORDERED: IPRATROPIUM-ALBUTEROL 3 ML NEB INHALATION PRN (18:41)
[2018-06-15] MEDS ORDERED: FUROSEMIDE 10 MG/ML 2 ML VIAL IV STA (18:42)
--- NOTE | 2018-06-15 19:18 | P.PN ---
Subjective Progress Note Date: 06/14/18 Interval history: This is a very pleasant 87-year-old patient of Dr. Dennis Herron. Chronic stable medical conditions include GERD, hypertension, osteoarthritis, diverticulosis. Patient has a normal bowel pattern of a bowel movement daily. Patient now presented with 7 days of no bowel movement. No nausea vomiting. Slight bowel distention. No fever or chills. Computed tomography scan of the abdomen ER did show a small bowel obstruction. NG tube placed. Evaluated by surgery, conservative management recommended. Abdominal x- ray on 06/12 reporting moderately dilated small bowel loops, scattered air-fluid levels with possible closed loop obstruction. Minimal flatus, no bowel movement. Underwent small bowel resection secondary to closed loop obstruction with bowel ischemia, with wound VAC. Pain controlled. Receiving PPN, lipids. NG tube recently discontinued. Denies flatus or bowel movement. Tolerating ice chips, Denies nausea or vomiting. Potassium 3.2. Review of systems: CONSTITUTIONAL: No fever, mild fatigue. HEENT: No recent visual problems or hearing problems. Denied any sore throat. CARDIOVASCULAR: No chest pain, orthopnea, PND, no palpitations, no syncope. PULMONARY: No shortness of breath, no cough, no hemoptysis. GASTROINTESTINAL: No diarrhea, no nausea, no vomiting, controlled abdominal/ surgical pain. NEUROLOGICAL: No headaches, no weakness, no numbness. HEMATOLOGICAL: Denies any bleeding or petechiae. GENITOURINARY: Denies any burning micturition, frequency, or urgency. ENDOCRINE: Denies any polyuria or polydipsia. PSYCHIATRIC: No anxiety, no depression The rest of the 14 point review of systems is negative Active Medications Acetaminophen (Tylenol Tab) 1,000 mg PO Q6HR PRN PRN Reason: Fever and/ or Pain Albuterol/Ipratropium (Duoneb 0.5 Mg-3 Mg/3 Ml Soln) 3 ml INHALATION RT-QID PABLO Albuterol/Ipratropium (Duoneb 0.5 Mg-3 Mg/3 Ml Soln) 3 ml INHALATION RT-Q2H PRN PRN Reason: Shortness Of Breath Or Wheezing Clonidine HCl (Catapres-Tts 0.1mg Patch) 1 patch TRANSDERM Q7D [facility] Last Admin: 06/12/18 17:34 Dose: Not Given Enoxaparin Sodium (Lovenox) 40 mg SQ DAILY [facility] Last Admin: 06/15/18 08:47 Dose: Not Given Lactated Ringer's (Lactated Ringers) 1,000 mls @ 50 mls/hr IV .Q20H [facility] Last Admin: 06/15/18 01:27 Dose: 50 mls/hr Parenteral Vitamin Supplement 10 ml/ Chromium/Copper/Manganese/Seleni/Zn 1 ml/ Amino Ac/Electrol/Dextrose/Calcium 1,011 mls @ 55 mls/hr IV .[id number] [facility] Last Admin: 06/15/18 16:34 Dose: 55 mls/hr Fat Emulsion Intravenous (Lipids 20%) 250 mls @ 20.833 mls/hr IV DAILY [facility] Last Admin: 06/15/18 08:35 Dose: 20.833 mls/hr Ketorolac Tromethamine (Toradol) 15 mg IVP Q6HR PRN PRN Reason: Pain Stop: 06/18/18 16:32 Last Admin: 06/15/18 03:06 Dose: 15 mg Losartan Potassium (Cozaar) 100 mg PO HS [facility] Last Admin: 06/14/18 22:21 Dose: 100 mg Metoclopramide HCl (Reglan) 10 mg IVP Q6HR [facility] Last Admin: 06/15/18 17:13 Dose: 10 mg Miscellaneous Information (Potassium Per Protocol) 1 each MISCELLANE DAILY PRN ; Protocol PRN Reason: Per Protocol Naloxone HCl (Narcan) 0.2 mg IV Q2M PRN PRN Reason: Opioid Reversal Ondansetron HCl (Zofran) 4 mg IVP Q8HR PRN PRN Reason: Nausea And Vomiting Last Admin: 06/15/18 04:38 Dose: 4 mg Pantoprazole Sodium (Protonix) 40 mg IVP DAILY [facility] Last Admin: 06/15/18 11:52 Dose: 40 mg Sodium Chloride (Saline Flush) 20 ml IV Q4HR PRN PRN Reason: PICC Line Sodium Chloride (Saline Flush) 10 ml IV WEEKLY [facility] Sodium Chloride (Saline Flush) 10 ml IV Q4HR PRN PRN Reason: PICC Line Active Medications Acetaminophen (Tylenol Tab) 1,000 mg PO Q6HR PRN PRN Reason: Fever and/ or Pain Clonidine HCl (Catapres-Tts 0.1mg Patch) 1 patch TRANSDERM Q7D [facility] Last Admin: 06/12/18 17:34 Dose: Not Given Enoxaparin Sodium (Lovenox) 40 mg SQ DAILY [facility] Last Admin: 06/14/18 08:17 Dose: 40 mg Lactated Ringer's (Lactated Ringers) 1,000 mls @ 50 mls/hr IV .Q20H [facility] Last Admin: 06/14/18 17:06 Dose: 50 mls/hr Parenteral Vitamin Supplement 10 ml/ Chromium/Copper/Manganese/Seleni/Zn 1 ml/ Amino Ac/Electrol/Dextrose/Calcium 1,011 mls @ 30 mls/hr IV .Q24H [facility] Stop: 06/15/18 01:11 Last Admin: 06/14/18 17:11 Dose: Not Given Parenteral Vitamin Supplement 10 ml/ Chromium/Copper/Manganese/Seleni/Zn 1 ml/ Amino Ac/Electrol/Dextrose/Calcium 1,011 mls @ 55 mls/hr IV .[id number] [facility] Last Admin: 06/14/18 18:08 Dose: 55 mls/hr Fat Emulsion Intravenous (Lipids 20%) 250 mls @ 20.833 mls/hr IV DAILY [facility] Last Admin: 06/14/18 08:59 Dose: 20.833 mls/hr Ketorolac Tromethamine (Toradol) 15 mg IVP Q6HR PRN PRN Reason: Pain Stop: 06/18/18 16:32 Losartan Potassium (Cozaar) 100 mg PO HS [facility] Last Admin: 06/13/18 21:25 Dose: 100 mg Metoclopramide HCl (Reglan) 10 mg IVP Q6HR [facility] Last Admin: 06/14/18 18:03 Dose: 10 mg Naloxone HCl (Narcan) 0.2 mg IV Q2M PRN PRN Reason: Opioid Reversal Ondansetron HCl (Zofran) 4 mg IVP Q8HR PRN PRN Reason: Nausea And Vomiting Last Admin: 06/09/18 08:59 Dose: 4 mg Objective - Vital Signs Vital signs: Vital Signs Temp 98.5 F 06/14/18 13:38 Pulse 92 06/14/18 13:38 Resp 16 06/14/18 16:00 BP 162/75 06/14/18 13:38 Pulse Ox 93 L 06/14/18 13:38 Intake & Output 06/14/18 06/14/18 06/15/18 06:59 18:59 06:59 Intake Total 369.5 Output Total 100 290 Balance 269.5 -290 Intake: Intake, IV Titration 369.5 Amount Mvi, Adult No.4 with Vit 369.5 K 10 ml Trace (Conc-1Ml/ Dose) 1 ml In Amino Acid 4.25%-D10w+Lytes*E* 1,000 ml @ 30 mls/hr IV .Q24H [facility] Rx#:[id number] Output: Gastric Drainage 100 90 Urine 200 Other: Voiding Method Bedside Commode # Voids 1 1 - Exam PHYSICAL EXAM: VITAL SIGNS: [As above] GENERAL: Sitting up in bed, alert ,no acute distress HEENT: Conjunctivae normal. eyes normal. Oral mucosa dry. NECK: No JVD. No thyroid enlargement. No LNs CARDIOVASCULAR: S1, S2 muffled. No murmur RESPIRATION: Nonlabored, Breath sounds diminished in bilateral bases. No rhonchi or crackles. ABDOMEN: Soft, status post surgery. Hypoactive bowel sounds. Wound VAC present. LEGS: No edema. no swelling PSYCHIATRY: Alert and oriented -3, mood and affect normal. NERVOUS SYSTEM: Cranial N 2-12 grossly normal. Moves all 4 limbs. Diffuse weakness No focal deficits. Skin: no rash Lymphatic system. No LN neck axilla or groin. - Labs CBC & Chem 7: 06/15/18 08:29 06/15/18 08:29 Labs: Abnormal Lab Results - Last 24 Hours (Table) 06/14/18 06/14/18 06/14/18 Range/Units 05:27 08:14 11:34 Sodium 136 L (137-145) mmol/L Potassium 3.2 L (3.5-5.1) mmol/L Glucose 149 H (74-99) mg/dL POC Glucose (mg/dL) 122 H 150 H (75-99) mg/dL Calcium 8.3 L (8.4-10.2) mg/dL Phosphorus 1.9 L (2.5-4.5) mg/dL 06/14/18 Range/Units 17:33 Sodium (137-145) mmol/L Potassium (3.5-5.1) mmol/L Glucose (74-99) mg/dL POC Glucose (mg/dL) 135 H (75-99) mg/dL Calcium (8.4-10.2) mg/dL Phosphorus (2.5-4.5) mg/dL Assessment and Plan Assessment: -Bowel obstruction ,Status post small bowel resection secondary to closed loop obstruction with bowel ischemia, with wound VAC -Chronic severe colonic diverticulosis -Gastroesophageal reflux disease -Essential hypertension -Primary osteoarthritis -Hypokalemia Plan: Continue current medication regime ,monitoring and symptomatic treatment. PPN/lipids. Scheduled for PICC line tomorrow. Gentle IV fluid hydration. Aggressive pulmonary toileting with incentive spirometer ordered. PT/OT, increase activity as tolerated. Potassium supplemented .Close monitoring of electrolytes, renal function with repeat labs ordered for a.m. The impression and plan of care has been dictated as directed. : I performed a history and examination of this patient, discussed the same with the dictator. I agree with the dictator's note ,documented as a scribe. Any additional findings or plans will be noted.
--- NOTE | 2018-06-15 19:28 | P.PN ---
Subjective Progress Note Date: 06/15/18 Interval history: This is a very pleasant 87-year-old patient of Dr. Dennis Herron. Chronic stable medical conditions include GERD, hypertension, osteoarthritis, diverticulosis. Patient has a normal bowel pattern of a bowel movement daily. Patient now presented with 7 days of no bowel movement. No nausea vomiting. Slight bowel distention. No fever or chills. Computed tomography scan of the abdomen ER did show a small bowel obstruction. NG tube placed. Evaluated by surgery, conservative management recommended. Abdominal x- ray on 06/12 reporting moderately dilated small bowel loops, scattered air-fluid levels with possible closed loop obstruction. Minimal flatus, no bowel movement. Underwent small bowel resection secondary to closed loop obstruction with bowel ischemia, with wound VAC. Pain controlled. Receiving PPN, lipids. NG tube recently discontinued. Denies flatus or bowel movement. Tolerating ice chips, Denies nausea or vomiting. Potassium 3.2. 06/15/2018 Postop day #3 .appears tired, recently ambulated. Minimal flatus passed, no bowel movement. Tolerating ice chips. Scheduled for PICC line placement today. Maintaining O2 sats in the low 90s on room air. Review of systems: CONSTITUTIONAL: No fever, positive fatigue. HEENT: No recent visual problems or hearing problems. Denied any sore throat. CARDIOVASCULAR: No chest pain, orthopnea, PND, no palpitations, no syncope. PULMONARY: No shortness of breath, no cough, no hemoptysis. GASTROINTESTINAL: No diarrhea, no nausea, no vomiting, controlled abdominal/ surgical pain. NEUROLOGICAL: No headaches, no weakness, no numbness. HEMATOLOGICAL: Denies any bleeding or petechiae. GENITOURINARY: Denies any burning micturition, frequency, or urgency. ENDOCRINE: Denies any polyuria or polydipsia. PSYCHIATRIC: No anxiety, no depression The rest of the 14 point review of systems is negative Active Medications Acetaminophen (Tylenol Tab) 1,000 mg PO Q6HR PRN PRN Reason: Fever and/ or Pain Albuterol/Ipratropium (Duoneb 0.5 Mg-3 Mg/3 Ml Soln) 3 ml INHALATION RT-QID PABLO Albuterol/Ipratropium (Duoneb 0.5 Mg-3 Mg/3 Ml Soln) 3 ml INHALATION RT-Q2H PRN PRN Reason: Shortness Of Breath Or Wheezing Clonidine HCl (Catapres-Tts 0.1mg Patch) 1 patch TRANSDERM Q7D [facility] Last Admin: 06/12/18 17:34 Dose: Not Given Enoxaparin Sodium (Lovenox) 40 mg SQ DAILY [facility] Last Admin: 06/15/18 08:47 Dose: Not Given Lactated Ringer's (Lactated Ringers) 1,000 mls @ 50 mls/hr IV .Q20H [facility] Last Admin: 06/15/18 01:27 Dose: 50 mls/hr Parenteral Vitamin Supplement 10 ml/ Chromium/Copper/Manganese/Seleni/Zn 1 ml/ Amino Ac/Electrol/Dextrose/Calcium 1,011 mls @ 55 mls/hr IV .[id number] [facility] Last Admin: 06/15/18 16:34 Dose: 55 mls/hr Fat Emulsion Intravenous (Lipids 20%) 250 mls @ 20.833 mls/hr IV DAILY [facility] Last Admin: 06/15/18 08:35 Dose: 20.833 mls/hr Ketorolac Tromethamine (Toradol) 15 mg IVP Q6HR PRN PRN Reason: Pain Stop: 06/18/18 16:32 Last Admin: 06/15/18 03:06 Dose: 15 mg Losartan Potassium (Cozaar) 100 mg PO HS [facility] Last Admin: 06/14/18 22:21 Dose: 100 mg Metoclopramide HCl (Reglan) 10 mg IVP Q6HR [facility] Last Admin: 06/15/18 17:13 Dose: 10 mg Miscellaneous Information (Potassium Per Protocol) 1 each MISCELLANE DAILY PRN ; Protocol PRN Reason: Per Protocol Naloxone HCl (Narcan) 0.2 mg IV Q2M PRN PRN Reason: Opioid Reversal Ondansetron HCl (Zofran) 4 mg IVP Q8HR PRN PRN Reason: Nausea And Vomiting Last Admin: 06/15/18 04:38 Dose: 4 mg Pantoprazole Sodium (Protonix) 40 mg IVP DAILY [facility] Last Admin: 06/15/18 11:52 Dose: 40 mg Sodium Chloride (Saline Flush) 20 ml IV Q4HR PRN PRN Reason: PICC Line Sodium Chloride (Saline Flush) 10 ml IV WEEKLY [facility] Sodium Chloride (Saline Flush) 10 ml IV Q4HR PRN PRN Reason: PICC Line Active Medications Acetaminophen (Tylenol Tab) 1,000 mg PO Q6HR PRN PRN Reason: Fever and/ or Pain Clonidine HCl (Catapres-Tts 0.1mg Patch) 1 patch TRANSDERM Q7D [facility] Last Admin: 06/12/18 17:34 Dose: Not Given Enoxaparin Sodium (Lovenox) 40 mg SQ DAILY [facility] Last Admin: 06/14/18 08:17 Dose: 40 mg Lactated Ringer's (Lactated Ringers) 1,000 mls @ 50 mls/hr IV .Q20H [facility] Last Admin: 06/14/18 17:06 Dose: 50 mls/hr Parenteral Vitamin Supplement 10 ml/ Chromium/Copper/Manganese/Seleni/Zn 1 ml/ Amino Ac/Electrol/Dextrose/Calcium 1,011 mls @ 30 mls/hr IV .Q24H [facility] Stop: 06/15/18 01:11 Last Admin: 06/14/18 17:11 Dose: Not Given Parenteral Vitamin Supplement 10 ml/ Chromium/Copper/Manganese/Seleni/Zn 1 ml/ Amino Ac/Electrol/Dextrose/Calcium 1,011 mls @ 55 mls/hr IV .[id number] [facility] Last Admin: 06/14/18 18:08 Dose: 55 mls/hr Fat Emulsion Intravenous (Lipids 20%) 250 mls @ 20.833 mls/hr IV DAILY [facility] Last Admin: 06/14/18 08:59 Dose: 20.833 mls/hr Ketorolac Tromethamine (Toradol) 15 mg IVP Q6HR PRN PRN Reason: Pain Stop: 06/18/18 16:32 Losartan Potassium (Cozaar) 100 mg PO HS [facility] Last Admin: 06/13/18 21:25 Dose: 100 mg Metoclopramide HCl (Reglan) 10 mg IVP Q6HR [facility] Last Admin: 06/14/18 18:03 Dose: 10 mg Naloxone HCl (Narcan) 0.2 mg IV Q2M PRN PRN Reason: Opioid Reversal Ondansetron HCl (Zofran) 4 mg IVP Q8HR PRN PRN Reason: Nausea And Vomiting Last Admin: 06/09/18 08:59 Dose: 4 mg Objective - Vital Signs Vital signs: Vital Signs Temp 98.2 F 06/15/18 14:51 Pulse 94 06/15/18 14:51 Resp 16 06/15/18 16:00 BP 172/79 06/15/18 14:51 Pulse Ox 93 L 06/15/18 14:51 Intake & Output 06/15/18 06/15/18 06/16/18 06:59 18:59 06:59 Intake Total 1611 Balance 1611 Intake: Intake, IV Titration 1011 Amount Mvi, Adult No.4 with Vit 1011 K 10 ml Trace (Conc-1Ml/ Dose) 1 ml In Amino Acid 4.25%-D10w+Lytes*E* 1,000 ml @ 55 mls/hr IV . [id number] [facility] Rx#:[id number] Oral 600 Other: Voiding Method Bedside Commode Bedside Commode # Voids 4 2 - Exam PHYSICAL EXAM: VITAL SIGNS: [As above] GENERAL: Sitting up in bed, alert ,no acute distress HEENT: Conjunctivae normal. eyes normal. Oral mucosa moist NECK: No JVD. No thyroid enlargement. No LNs CARDIOVASCULAR: S1, S2 muffled. No murmur RESPIRATION: Nonlabored, Breath sounds diminished in bilateral bases. No rhonchi , wheezing, crackles. ABDOMEN: Soft, status post surgery. Hypoactive bowel sounds. Wound VAC present. LEGS: No edema. no swelling PSYCHIATRY: Alert and oriented -3, mood and affect normal. NERVOUS SYSTEM: Cranial N 2-12 grossly normal. Moves all 4 limbs. Diffuse weakness, No focal deficits. Skin: no rash Lymphatic system. No LN neck axilla or groin. - Labs CBC & Chem 7: 06/15/18 08:29 06/15/18 08:29 Labs: Abnormal Lab Results - Last 24 Hours (Table) 06/14/18 06/15/18 06/15/18 Range/Units 23:56 06:49 08:29 Neutrophils # (1.3-7.7) k/uL Lymphocytes # (1.0-4.8) k/uL BUN 18 H (7-17) mg/dL Creatinine 0.49 L (0.52-1.04) mg/dL Glucose 165 H (74-99) mg/dL POC Glucose (mg/dL) 130 H 155 H (75-99) mg/dL Total Protein 5.8 L (6.3-8.2) g/dL Albumin 3.0 L (3.5-5.0) g/dL 06/15/18 06/15/18 06/15/18 Range/Units 08:29 13:23 17:05 Neutrophils # 8.6 H (1.3-7.7) k/uL Lymphocytes # 0.9 L (1.0-4.8) k/uL BUN (7-17) mg/dL Creatinine (0.52-1.04) mg/dL Glucose (74-99) mg/dL POC Glucose (mg/dL) 149 H 203 H (75-99) mg/dL Total Protein (6.3-8.2) g/dL Albumin (3.5-5.0) g/dL Assessment and Plan Assessment: -Bowel obstruction ,Status post small bowel resection secondary to closed loop obstruction with bowel ischemia, with wound VAC. Pathology reporting early acute ischemic enteritis with subserosal fibrosis, fat necrosis and acute serositis. -Chronic severe colonic diverticulosis -Gastroesophageal reflux disease -Essential hypertension -Primary osteoarthritis -Hypokalemia Plan: Continue current medication regime ,monitoring and symptomatic treatment. PPN/lipids. Aggressive pulmonary toileting with incentive spirometer reinforced GI and DVT prophylaxis in place with Lovenox and Protonix. Scheduled for PICC line today. Gentle IV fluid hydration. PT/OT. Chest x-ray ordered. Lasix 20 IV push 1. Diet advancement/pain management as per surgery. The impression and plan of care has been dictated as directed. : I performed a history and examination of this patient, discussed the same with the dictator. I agree with the dictator's note ,documented as a scribe. Any additional findings or plans will be noted.
[2018-06-15] MEDS: IPRATROPIUM-ALBUTEROL 3 ML NEB INHALATION SCH (20:11)
[2018-06-15] MEDS: MELATONIN 5 MG TABLET PO PRN (22:08)
[2018-06-15] MEDS: PANTOPRAZOLE 40 MG/10 ML VIAL IVP SCH (22:08)
[2018-06-15] MEDS: LOSARTAN 50 MG TAB PO SCH (22:08)
[2018-06-16] MEDS: KETOROLAC 30 MG/ML 1 ML VIAL IVP PRN ×2 (00:15→18:18)
[2018-06-16] MEDS: METOCLOPRAMIDE 5 MG/ML 2 ML VIAL IVP SCH ×5 (00:15→23:08)
[2018-06-16 00:19] LABS: Glucose,Whole Blood 165 mg/dL (75-99)
[2018-06-16] MEDS: MVI, ADULT NO.4 WITH VIT K 10 ML, TRACE (CONC-1ML/DOSE) 1 ML in AMINO ACID 4.25%-D10W+L... IV SCH ×6 (06:13→11:45)
[2018-06-16 06:33] LABS: Glucose,Whole Blood 144 mg/dL (75-99)
[2018-06-16] MEDS: IPRATROPIUM-ALBUTEROL 3 ML NEB INHALATION SCH ×4 (08:32→19:31)
[2018-06-16] MEDS: FAT EMULSION 20% 250 ML IV SCH (08:50)
[2018-06-16] MEDS: ENOXAPARIN 40 MG/0.4 ML SYRINGE SQ SCH (08:51)
[2018-06-16] MEDS: PANTOPRAZOLE 40 MG/10 ML VIAL IVP SCH ×2 (08:51→20:31)
[2018-06-16 09:44] LABS: RBC 4.14 m/uL (3.80-5.40); WBC 9.6 k/uL (3.8-10.6)
[2018-06-16 09:45] LABS: Basophils % (A) 0 %; Eosinophils # (A) 0.1 k/uL (0-0.7); Eosinophils % (A) 1 %; HCT 40.1 % (34.0-46.0); Lymphocytes # (A) 0.6 k/uL (1.0-4.8); Lymphocytes % (A) 6 %; MCH 29.1 pg (25.0-35.0); MCV 96.9 fL (80.0-100.0); Mean Platelet Volume 7.6; Monocytes # (A) 0.8 k/uL (0-1.0); Monocytes % (A) 9 %; Neutrophils # (A) 7.9 k/uL (1.3-7.7); Neutrophils % (A) 83 %; Platelet Count 238 k/uL (150-450); RDW 12.8 % (11.5-15.5)
[2018-06-16 10:00] LABS: Albumin 2.6 g/dL (3.5-5.0); Anion Gap 8 mmol/L; Blood Urea Nitrogen 27 mg/dL (7-17); Calcium 8.8 mg/dL (8.4-10.2); Carbon Dioxide 25 mmol/L (22-30); Chloride 98 mmol/L (98-107); Glucose 151 mg/dL (74-99); Sodium 131 mmol/L (137-145); Total Bilirubin 0.6 mg/dL (0.2-1.3); Total Protein 5.2 g/dL (6.3-8.2)
[2018-06-16 10:02] LABS: AST 29 U/L (14-36); Magnesium 1.9 mg/dL (1.6-2.3)
[2018-06-16 10:03] LABS: ALT 15 U/L (9-52); Alkaline Phosphatase 33 U/L (38-126); Phosphorus 3.9 mg/dL (2.5-4.5)
--- NOTE | 2018-06-16 11:24 | P.PN ---
Subjective Progress Note Date: 06/16/18 CHIEF COMPLAINT: Abdominal pain HISTORY OF PRESENT ILLNESS: Patient seen and examined at bedside. Patient underwent small bowel resection secondary to closed loop obstruction with bowel ischemia. She is POD #4. Patient states her pain is tolerable at this time. Patient states she is not passing any gas today. She states she ate breakfast without nausea. She does have evidence of bilious emesis on her gown and sheet this morning. PHYSICAL EXAM: VITAL SIGNS: Currently stable. GENERAL: Well-developed in no acute distress. HEENT: NG tube to LIS. No sclera icterus. Extraocular movements grossly intact. Moist buccal mucosa. Head is atraumatic, normocephalic. Hears conversational speech. No nasal drainage. NECK: Supple without lymphadenopathy. CHEST: Non-labored respirations and equal bilateral excursions. CARDIOVASCULAR: Regular rate with regular rhythm. Palpable 2+ radial pulses. ABDOMEN: Soft. Distended. Minimal bowel sounds. PREVENA wound VAC in place. MUSCULOSKELETAL: No clubbing, cyanosis or edema. NEUROLOGIC: No focal or lateralizing signs. Cranial nerves II through XII grossly intact. PSYCH: Appropriate affect. Alert and oriented to person, place and time. SKIN: Well perfused. Good skin turgor. ASSESSMENT: 1. Small bowel obstruction secondary to closed loop obstruction with bowel ischemia, status post lysis of adhesions and small bowel resection 2. Postoperative ileus PLAN: 1. Continue TPN 2. Continue Reglan 3. Insert NG to LIS 4. NPO Nurse practitioner note has been reviewed by physician. Signing provider agrees with the documented findings, assessment, and plan of care. Objective - Vital Signs Vital signs: Vital Signs Temp 98.0 F 06/16/18 06:35 Pulse 102 H 06/16/18 06:35 Resp 20 06/16/18 06:35 BP 164/72 06/16/18 06:35 Pulse Ox 93 L 06/16/18 06:35 Intake & Output 06/15/18 06/16/18 06/16/18 18:59 06:59 18:59 Intake Total 1611 400 Balance 1611 400 Weight 58.513 kg Intake: Intake, IV Titration 1011 Amount Mvi, Adult No.4 with Vit 1011 K 10 ml Trace (Conc-1Ml/ Dose) 1 ml In Amino Acid 4.25%-D10w+Lytes*E* 1,000 ml @ 55 mls/hr IV . [id number] [facility] Rx#:[id number] Oral 600 400 Other: Voiding Method Bedside Commode Bedside Commode # Voids 2 5 - Labs CBC & Chem 7: 06/16/18 08:50 06/16/18 08:50 Labs: Abnormal Lab Results - Last 24 Hours (Table) 06/15/18 06/15/18 06/16/18 Range/Units 13:23 17:05 00:07 MCHC (31.0-37.0) g/dL Neutrophils # (1.3-7.7) k/uL Lymphocytes # (1.0-4.8) k/uL Sodium (137-145) mmol/L BUN (7-17) mg/dL Creatinine (0.52-1.04) mg/dL Glucose (74-99) mg/dL POC Glucose (mg/dL) 149 H 203 H 165 H (75-99) mg/dL Alkaline Phosphatase (38-126) U/L Total Protein (6.3-8.2) g/dL Albumin (3.5-5.0) g/dL 06/16/18 06/16/18 06/16/18 Range/Units 06:21 08:50 08:50 MCHC 30.0 L (31.0-37.0) g/dL Neutrophils # 7.9 H (1.3-7.7) k/uL Lymphocytes # 0.6 L (1.0-4.8) k/uL Sodium 131 L (137-145) mmol/L BUN 27 H (7-17) mg/dL Creatinine 0.48 L (0.52-1.04) mg/dL Glucose 151 H (74-99) mg/dL POC Glucose (mg/dL) 144 H (75-99) mg/dL Alkaline Phosphatase 33 L (38-126) U/L Total Protein 5.2 L (6.3-8.2) g/dL Albumin 2.6 L (3.5-5.0) g/dL Assessment and Plan (1) Abdominal adhesions Current Visit: Yes Status: Acute Code(s): K66.0 - PERITONEAL ADHESIONS ( POSTPROCEDURAL) (POSTINFECTION) SNOMED Code(s): 886211389 (2) Diverticulosis Current Visit: Yes Status: Acute Code(s): K57.90 - DVRTCLOS OF INTEST, PART UNSP, W/O PERF OR ABSCESS W/O BLEED SNOMED Code(s): 30870839 (3) History of hysterectomy Current Visit: Yes Status: Acute Code(s): Z90.710 - ACQUIRED ABSENCE OF BOTH CERVIX AND UTERUS SNOMED Code(s): 628044765 (4) Abdominal pain Current Visit: Yes Status: Acute Code(s): R10.9 - UNSPECIFIED ABDOMINAL PAIN SNOMED Code(s): 57038456 (5) SBO (small bowel obstruction) Current Visit: Yes Status: Acute Code(s): K56.609 - UNSP INTESTNL OBST, UNSP TO PARTIAL VERSUS COMPLETE OBST SNOMED Code(s): 279385947
[2018-06-16 11:50] LABS: Glucose,Whole Blood 127 mg/dL (75-99)
[2018-06-16 17:35] LABS: Glucose,Whole Blood 148 mg/dL (75-99)
[2018-06-16] MEDS: LACTATED RINGERS 1,000 ML IV SCH (18:16)
[2018-06-16] MEDS: LOSARTAN 50 MG TAB PO SCH (20:31)
--- NOTE | 2018-06-16 20:35 | P.PN ---
Subjective Progress Note Date: 06/16/18 Interval history: This is a very pleasant 87-year-old patient of Dr. Dennis Herron. Chronic stable medical conditions include GERD, hypertension, osteoarthritis, diverticulosis. Patient has a normal bowel pattern of a bowel movement daily. Patient now presented with 7 days of no bowel movement. No nausea vomiting. Slight bowel distention. No fever or chills. Computed tomography scan of the abdomen ER did show a small bowel obstruction. NG tube placed. Evaluated by surgery, conservative management recommended. Abdominal x- ray on 06/12 reporting moderately dilated small bowel loops, scattered air-fluid levels with possible closed loop obstruction. Minimal flatus, no bowel movement. Underwent small bowel resection secondary to closed loop obstruction with bowel ischemia, with wound VAC. Pain controlled. Receiving PPN, lipids. NG tube recently discontinued. Denies flatus or bowel movement. Tolerating ice chips, Denies nausea or vomiting. Potassium 3.2. 06/15/2018 Postop day #3 .appears tired, recently ambulated. Minimal flatus passed, no bowel movement. Tolerating ice chips. Scheduled for PICC line placement today. Maintaining O2 sats in the low 90s on room air. 06/16/2007 small bile emesis, passing no flatus, no bowel movement. Abdomen mildly distended. Maintained on TPN and lipids via PICC line. Pain controlled. Chest x-ray yesterday reported bilateral pleural effusions, associated atelectasis. Review of systems: CONSTITUTIONAL: No fever, positive fatigue. HEENT: No recent visual problems or hearing problems. Denied any sore throat. CARDIOVASCULAR: No chest pain, orthopnea, PND, no palpitations, no syncope. PULMONARY: No shortness of breath, no cough, no hemoptysis. GASTROINTESTINAL: No diarrhea, no nausea, positive bile emesis, controlled abdominal/surgical pain. NEUROLOGICAL: No headaches, no weakness, no numbness. HEMATOLOGICAL: Denies any bleeding or petechiae. GENITOURINARY: Denies any burning micturition, frequency, or urgency. ENDOCRINE: Denies any polyuria or polydipsia. PSYCHIATRIC: No anxiety, no depression,mild anxiety Active Medications Generic Name Dose Route Start Last Admin Trade Name Freq PRN Reason Stop Dose Admin Acetaminophen 1,000 mg 06/14/18 16:31 Tylenol Tab PO Q6HR PRN Fever and/ or Pain Albuterol/Ipratropium 3 ml 06/15/18 20:00 06/16/18 19:31 Duoneb 0.5 Mg-3 Mg/3 Ml Soln INHALATION Not Given RT-QID PABLO Albuterol/Ipratropium 3 ml 06/15/18 18:41 Duoneb 0.5 Mg-3 Mg/3 Ml Soln INHALATION RT-Q2H PRN Shortness Of Breath Or Wheezing Clonidine HCl 1 patch 06/11/18 16:00 06/12/18 17:34 Catapres-Tts 0.1mg Patch TRANSDERM Not Given Q7D PABLO Enoxaparin Sodium 40 mg 06/13/18 09:00 06/16/18 08:51 Lovenox SQ 40 mg DAILY PABLO Administration Lactated Ringer's 1,000 mls @ 50 mls/hr 06/12/18 22:15 06/16/18 18:16 Lactated Ringers IV 50 mls/hr .Q20H PABLO Administration Parenteral Vitamin Supplement 1,011 mls @ 55 mls/hr 06/14/18 16:00 06/16/18 11:45 10 ml/ Chromium/Copper/ IV 55 mls/hr Manganese/Seleni/Zn 1 ml/ .[id number] PABLO Administration Amino Ac/Electrol/Dextrose/ Calcium Fat Emulsion Intravenous 250 mls @ 20.833 mls/hr 06/13/18 15:30 06/16/18 08: 50 Lipids 20% IV 20.833 mls/hr DAILY PABLO Administration Ketorolac Tromethamine 15 mg 06/14/18 16:32 06/16/18 18:18 Toradol IVP 06/18/18 16:32 15 mg Q6HR PRN Administration Pain Losartan Potassium 100 mg 06/09/18 21:00 06/15/18 22:08 Cozaar PO 100 mg HS PABLO Administration Melatonin 5 mg 06/15/18 21:11 06/15/18 22:08 Melatonin PO 5 mg HS PRN Administration sleep Metoclopramide HCl 10 mg 06/14/18 18:00 06/16/18 18:15 Reglan IVP 10 mg Q6HR PABLO Administration Miscellaneous Information 1 each 06/14/18 20:56 Potassium Per Protocol MISCELLANE DAILY PRN Per Protocol Protocol Naloxone HCl 0.2 mg 06/12/18 14:44 Narcan IV Q2M PRN Opioid Reversal Ondansetron HCl 4 mg 06/08/18 19:21 06/15/18 04:38 Zofran IVP 4 mg Q8HR PRN Administration Nausea And Vomiting Pantoprazole Sodium 40 mg 06/15/18 21:15 06/16/18 08:51 Protonix IVP 40 mg BID [facility] Administration Sodium Chloride 20 ml 06/15/18 14:34 Saline Flush IV Q4HR PRN PICC Line Sodium Chloride 10 ml 06/22/18 09:00 Saline Flush IV WEEKLY PABLO Sodium Chloride 10 ml 06/15/18 14:34 Saline Flush IV Q4HR PRN PICC Line Active Medications Acetaminophen (Tylenol Tab) 1,000 mg PO Q6HR PRN PRN Reason: Fever and/ or Pain Clonidine HCl (Catapres-Tts 0.1mg Patch) 1 patch TRANSDERM Q7D [facility] Last Admin: 06/12/18 17:34 Dose: Not Given Enoxaparin Sodium (Lovenox) 40 mg SQ DAILY [facility] Last Admin: 06/14/18 08:17 Dose: 40 mg Lactated Ringer's (Lactated Ringers) 1,000 mls @ 50 mls/hr IV .Q20H [facility] Last Admin: 06/14/18 17:06 Dose: 50 mls/hr Parenteral Vitamin Supplement 10 ml/ Chromium/Copper/Manganese/Seleni/Zn 1 ml/ Amino Ac/Electrol/Dextrose/Calcium 1,011 mls @ 30 mls/hr IV .Q24H [facility] Stop: 06/15/18 01:11 Last Admin: 06/14/18 17:11 Dose: Not Given Parenteral Vitamin Supplement 10 ml/ Chromium/Copper/Manganese/Seleni/Zn 1 ml/ Amino Ac/Electrol/Dextrose/Calcium 1,011 mls @ 55 mls/hr IV .[id number] [facility] Last Admin: 06/14/18 18:08 Dose: 55 mls/hr Fat Emulsion Intravenous (Lipids 20%) 250 mls @ 20.833 mls/hr IV DAILY [facility] Last Admin: 06/14/18 08:59 Dose: 20.833 mls/hr Ketorolac Tromethamine (Toradol) 15 mg IVP Q6HR PRN PRN Reason: Pain Stop: 06/18/18 16:32 Losartan Potassium (Cozaar) 100 mg PO HS [facility] Last Admin: 06/13/18 21:25 Dose: 100 mg Metoclopramide HCl (Reglan) 10 mg IVP Q6HR [facility] Last Admin: 06/14/18 18:03 Dose: 10 mg Naloxone HCl (Narcan) 0.2 mg IV Q2M PRN PRN Reason: Opioid Reversal Ondansetron HCl (Zofran) 4 mg IVP Q8HR PRN PRN Reason: Nausea And Vomiting Last Admin: 06/09/18 08:59 Dose: 4 mg Objective - Vital Signs Vital signs: Vital Signs Temp 97.2 F L 06/16/18 14:29 Pulse 95 06/16/18 14:29 Resp 16 06/16/18 16:00 BP 148/69 06/16/18 14:29 Pulse Ox 95 06/16/18 14:29 Intake & Output 06/16/18 06/16/18 06/17/18 06:59 18:59 06:59 Intake Total 400 1011 Output Total 1025 Balance 400 -14 Weight 58.513 kg Intake: Intake, IV Titration 1011 Amount Mvi, Adult No.4 with Vit 1011 K 10 ml Trace (Conc-1Ml/ Dose) 1 ml In Amino Acid 4.25%-D10w+Lytes*E* 1,000 ml @ 55 mls/hr IV . [id number] [facility] Rx#:[id number] Oral 400 Output: Gastric Drainage 1025 Other: Voiding Method Bedside Commode Bedside Commode # Voids 5 - Exam PHYSICAL EXAM: VITAL SIGNS: [As above] GENERAL: Sitting up in bed, alert ,no acute distress HEENT: Conjunctivae normal. eyes normal. Oral mucosa moist NECK: No JVD. No thyroid enlargement. No LNs CARDIOVASCULAR: S1, S2 muffled. No murmur, no rubs, no gallops occasional mild tachycardia. RESPIRATION: Nonlabored, Breath sounds diminished in bilateral bases. No rhonchi , wheezing, crackles. ABDOMEN: Soft, distended, status post surgery. Unable to auscultate bowel sounds. Wound VAC present. LEGS: No edema. no swelling PSYCHIATRY: Alert and oriented -3, mood and affect normal. NERVOUS SYSTEM: Cranial N 2-12 grossly normal. Moves all 4 limbs. Diffuse weakness, No focal deficits. Skin: no rash Lymphatic system. No LN neck axilla or groin. - Labs CBC & Chem 7: 06/16/18 08:50 06/16/18 08:50 Labs: Abnormal Lab Results - Last 24 Hours (Table) 06/16/18 06/16/18 06/16/18 Range/Units 00:07 06:21 08:50 MCHC (31.0-37.0) g/dL Neutrophils # (1.3-7.7) k/uL Lymphocytes # (1.0-4.8) k/uL Sodium 131 L (137-145) mmol/L BUN 27 H (7-17) mg/dL Creatinine 0.48 L (0.52-1.04) mg/dL Glucose 151 H (74-99) mg/dL POC Glucose (mg/dL) 165 H 144 H (75-99) mg/dL Alkaline Phosphatase 33 L (38-126) U/L Total Protein 5.2 L (6.3-8.2) g/dL Albumin 2.6 L (3.5-5.0) g/dL 06/16/18 06/16/18 06/16/18 Range/Units 08:50 11:41 17:31 MCHC 30.0 L (31.0-37.0) g/dL Neutrophils # 7.9 H (1.3-7.7) k/uL Lymphocytes # 0.6 L (1.0-4.8) k/uL Sodium (137-145) mmol/L BUN (7-17) mg/dL Creatinine (0.52-1.04) mg/dL Glucose (74-99) mg/dL POC Glucose (mg/dL) 127 H 148 H (75-99) mg/dL Alkaline Phosphatase (38-126) U/L Total Protein (6.3-8.2) g/dL Albumin (3.5-5.0) g/dL Assessment and Plan Assessment: -Bowel obstruction ,Status post small bowel resection secondary to closed loop obstruction with bowel ischemia, with wound VAC. Pathology reporting early acute ischemic enteritis with subserosal fibrosis, fat necrosis and acute serositis. -Postoperative ileus -Chronic severe colonic diverticulosis -Gastroesophageal reflux disease -Essential hypertension -Primary osteoarthritis -Hypokalemia -Hyponatremia Plan: Continue current medication regime ,monitoring and symptomatic treatment. Surgery has ordered NG tube to be reinserted. Maintain IV fluids, TPN and lipids. Pain management. Aggressive pulmonary toileting with incentive spirometer reinforced. GI and DVT prophylaxis in place. PT/OT, increase ambulation as tolerated. Close monitoring of electrolytes with repeat labs ordered for a.m. The impression and plan of care has been dictated as directed. : I performed a history and examination of this patient, discussed the same with the dictator. I agree with the dictator's note ,documented as a scribe. Any additional findings or plans will be noted.
[2018-06-17 00:15] LABS: Glucose,Whole Blood 136 mg/dL (75-99)
[2018-06-17] MEDS: METOCLOPRAMIDE 5 MG/ML 2 ML VIAL IVP SCH ×3 (05:06→17:34)
[2018-06-17] MEDS: MVI, ADULT NO.4 WITH VIT K 10 ML, TRACE (CONC-1ML/DOSE) 1 ML in AMINO ACID 4.25%-D10W+L... IV SCH ×3 (06:17)
[2018-06-17 07:05] LABS: Glucose,Whole Blood 112 mg/dL (75-99)
[2018-06-17] MEDS: IPRATROPIUM-ALBUTEROL 3 ML NEB INHALATION SCH ×4 (07:12→21:29)
[2018-06-17] MEDS: PANTOPRAZOLE 40 MG/10 ML VIAL IVP SCH ×2 (07:34→20:34)
[2018-06-17] MEDS: ENOXAPARIN 40 MG/0.4 ML SYRINGE SQ SCH (07:35)
[2018-06-17] MEDS: FAT EMULSION 20% 250 ML IV SCH (10:15)
[2018-06-17 11:58] LABS: Basophils % (A) 0 %; Eosinophils # (A) 0.1 k/uL (0-0.7); Eosinophils % (A) 1 %; HCT 34.1 % (34.0-46.0); HGB 10.9 gm/dL (11.4-16.0); Lymphocytes # (A) 0.9 k/uL (1.0-4.8); Lymphocytes % (A) 8 %; MCH 30.1 pg (25.0-35.0); MCHC 32.1 g/dL (31.0-37.0); MCV 93.9 fL (80.0-100.0); Mean Platelet Volume 7.4; Monocytes # (A) 0.7 k/uL (0-1.0); Monocytes % (A) 7 %; Neutrophils # (A) 8.4 k/uL (1.3-7.7); Neutrophils % (A) 82 %; Platelet Count 261 k/uL (150-450); RBC 3.63 m/uL (3.80-5.40); RDW 12.8 % (11.5-15.5); WBC 10.2 k/uL (3.8-10.6)
[2018-06-17 12:16] LABS: ALT 37 U/L (9-52); AST 33 U/L (14-36); Albumin 2.5 g/dL (3.5-5.0); Alkaline Phosphatase 47 U/L (38-126); Anion Gap 5 mmol/L; Blood Urea Nitrogen 22 mg/dL (7-17); Calcium 8.3 mg/dL (8.4-10.2); Carbon Dioxide 32 mmol/L (22-30); Chloride 98 mmol/L (98-107); Glucose 137 mg/dL (74-99); Magnesium 1.7 mg/dL (1.6-2.3); Phosphorus 3.5 mg/dL (2.5-4.5); Potassium 3.5 mmol/L (3.5-5.1); Sodium 135 mmol/L (137-145); Total Bilirubin 0.6 mg/dL (0.2-1.3); Total Protein 4.8 g/dL (6.3-8.2)
--- NOTE | 2018-06-17 12:19 | P.PN ---
Subjective Progress Note Date: 06/17/18 CHIEF COMPLAINT: Abdominal pain HISTORY OF PRESENT ILLNESS: Patient seen and examined at bedside. Patient underwent small bowel resection secondary to closed loop obstruction with bowel ischemia. She is POD #5. Patient had evidence of bilious emesis on her gown yesterday morning and NG tube was reinserted. Patient states she is unsure she is passing flatus. No BM. She is requesting medication for anxiety. PHYSICAL EXAM: VITAL SIGNS: Currently stable. GENERAL: Well-developed in no acute distress. HEENT: NG tube to LIS. No sclera icterus. Extraocular movements grossly intact. Moist buccal mucosa. Head is atraumatic, normocephalic. Hears conversational speech. No nasal drainage. NECK: Supple without lymphadenopathy. CHEST: Non-labored respirations and equal bilateral excursions. CARDIOVASCULAR: Regular rate with regular rhythm. Palpable 2+ radial pulses. ABDOMEN: Soft. Distended. Minimal bowel sounds. PREVENA wound VAC in place. MUSCULOSKELETAL: No clubbing, cyanosis or edema. NEUROLOGIC: No focal or lateralizing signs. Cranial nerves II through XII grossly intact. PSYCH: Appropriate affect. Alert and oriented to person, place and time. SKIN: Well perfused. Good skin turgor. ASSESSMENT: 1. Small bowel obstruction secondary to closed loop obstruction with bowel ischemia, status post lysis of adhesions and small bowel resection 2. Postoperative ileus PLAN: 1. Continue TPN 2. Continue Reglan 3. Continue NG tube 4. NPO 5. Increase activity as tolerated. Patient encouraged to sit in chair and ambulate in [address] way 6. Patient requesting medication for anxiety. Will defer to medicine. Nurse practitioner note has been reviewed by physician. Signing provider agrees with the documented findings, assessment, and plan of care. Objective - Vital Signs Vital signs: Vital Signs Temp 97.6 F 06/17/18 06:05 Pulse 104 H 06/17/18 11:15 Resp 16 06/17/18 08:50 BP 169/73 06/17/18 06:05 Pulse Ox 92 L 06/17/18 06:05 Intake & Output 06/16/18 06/17/18 06/17/18 18:59 06:59 18:59 Intake Total 1011 1011 Output Total 1025 250 Balance -14 761 Weight 58.513 kg Intake: Intake, IV Titration 1011 1011 Amount Mvi, Adult No.4 with Vit 1011 1011 K 10 ml Trace (Conc-1Ml/ Dose) 1 ml In Amino Acid 4.25%-D10w+Lytes*E* 1,000 ml @ 55 mls/hr IV . [id number] [facility] Rx#:[id number] Oral 0 Output: Gastric Drainage 1025 250 Other: Voiding Method Bedside Commode Bedside Commode # Voids 3 - Labs CBC & Chem 7: 06/16/18 08:50 06/17/18 11:17 Labs: Abnormal Lab Results - Last 24 Hours (Table) 06/16/18 06/17/18 06/17/18 Range/Units 17:31 00:08 06:53 Sodium (137-145) mmol/L Carbon Dioxide (22-30) mmol/L BUN (7-17) mg/dL Glucose (74-99) mg/dL POC Glucose (mg/dL) 148 H 136 H 112 H (75-99) mg/dL Calcium (8.4-10.2) mg/dL Total Protein (6.3-8.2) g/dL Albumin (3.5-5.0) g/dL 06/17/18 Range/Units 11:17 Sodium 135 L (137-145) mmol/L Carbon Dioxide 32 H (22-30) mmol/L BUN 22 H (7-17) mg/dL Glucose 137 H (74-99) mg/dL POC Glucose (mg/dL) (75-99) mg/dL Calcium 8.3 L (8.4-10.2) mg/dL Total Protein 4.8 L (6.3-8.2) g/dL Albumin 2.5 L (3.5-5.0) g/dL Assessment and Plan (1) Abdominal adhesions Current Visit: Yes Status: Acute Code(s): K66.0 - PERITONEAL ADHESIONS ( POSTPROCEDURAL) (POSTINFECTION) SNOMED Code(s): 111360410 (2) Diverticulosis Current Visit: Yes Status: Acute Code(s): K57.90 - DVRTCLOS OF INTEST, PART UNSP, W/O PERF OR ABSCESS W/O BLEED SNOMED Code(s): 61965042 (3) History of hysterectomy Current Visit: Yes Status: Acute Code(s): Z90.710 - ACQUIRED ABSENCE OF BOTH CERVIX AND UTERUS SNOMED Code(s): 622394583 (4) Abdominal pain Current Visit: Yes Status: Acute Code(s): R10.9 - UNSPECIFIED ABDOMINAL PAIN SNOMED Code(s): 67029067 (5) SBO (small bowel obstruction) Current Visit: Yes Status: Acute Code(s): K56.609 - UNSP INTESTNL OBST, UNSP TO PARTIAL VERSUS COMPLETE OBST SNOMED Code(s): 477810011
[2018-06-17 12:23] LABS: Glucose,Whole Blood 139 mg/dL (75-99)
[2018-06-17] MEDS: LACTATED RINGERS 1,000 ML IV SCH (12:30)
[2018-06-17] MEDS: SODIUM CHLORIDE 0.9% 1,000 ML IV SCH (12:32)
[2018-06-17] MEDS: KETOROLAC 30 MG/ML 1 ML VIAL IVP PRN (14:19)
--- NOTE | 2018-06-17 14:52 | P.PN ---
Subjective 87-year-old patient of Dr. Dennis Herron. Chronic stable medical conditions include GERD, hypertension, osteoarthritis, diverticulosis. Patient has a normal bowel pattern of a bowel movement daily. Patient now presented with 7 days of no bowel movement. No nausea vomiting. Slight bowel distention. No fever or chills. Computed tomography scan of the abdomen ER did show a small bowel obstruction. NG tube placed. Evaluated by surgery, conservative management recommended. Abdominal x-ray on 06/12 reporting moderately dilated small bowel loops, scattered air-fluid levels with possible closed loop obstruction. Minimal flatus, no bowel movement. Underwent small bowel resection secondary to closed loop obstruction with bowel ischemia, with wound VAC. Pain controlled. Receiving PPN, lipids. NG tube recently discontinued. Denies flatus or bowel movement. Tolerating ice chips, Denies nausea or vomiting. Potassium 3.2. 06/15/2018 Postop day #3 .appears tired, recently ambulated. Minimal flatus passed, no bowel movement. Tolerating ice chips. Scheduled for PICC line placement today. Maintaining O2 sats in the low 90s on room air. 06/16/2018 small bile emesis, passing no flatus, no bowel movement. Abdomen mildly distended. Maintained on TPN and lipids via PICC line. Pain controlled. Chest x-ray yesterday reported bilateral pleural effusions, associated atelectasis. 06/17/2018 Patient had 400 mL out of output since last night from NG tube patient pass gas still has sluggish bowel sounds patient continues to have NG tube drainage and drainage. Patient is intravascularly volume depleted leading to hyponatremia patient was started on IV fluids at 100 mL per hour. Patient denied any abdominal pain.Constitutional: Denied any fatigue denied any fever. Cardio vascular: denied any chest pain, palpitations Gastrointestinal patient has an NG tube as mentioned above Pulmonary: Denied any shortness of breath cough Neurologic denied any new focal deficits All inpatient medications were reviewed and appropriate changes in these medications as dictated in the interval history and assessment and plan. Objective - Vital Signs Vital signs: Vital Signs Temp 99.4 F 06/17/18 14:32 Pulse 124 H 06/17/18 14:32 Resp 20 06/17/18 14:32 BP 182/63 06/17/18 14:32 Pulse Ox 93 L 06/17/18 14:32 Intake & Output 06/16/18 06/17/1819 18:59 06:59 18:59 Intake Total 1011 1011 Output Total 1025 250 Balance -14 761 Weight 58.513 kg Intake: Intake, IV Titration 1011 1011 Amount Mvi, Adult No.4 with Vit 1011 1011 K 10 ml Trace (Conc-1Ml/ Dose) 1 ml In Amino Acid 4.25%-D10w+Lytes*E* 1,000 ml @ 55 mls/hr IV . [id number] [facility] Rx#:[id number] Oral 0 Output: Gastric Drainage 1025 250 Other: Voiding Method Bedside Commode Bedside Commode # Voids 3 3 - Exam GENERAL: HEENT: Conjunctivae normal. eyes normal. Oral mucosa moist NECK: No JVD. No thyroid enlargement. No LNs CARDIOVASCULAR: S1, S2 muffled. No murmur, no rubs, no gallops occasional mild tachycardia. RESPIRATION: Nonlabored, Breath sounds diminished in bilateral bases. No rhonchi , wheezing, crackles. ABDOMEN: Soft, distended, status post surgery. Unable to auscultate bowel sounds. NG tube in place LEGS: No edema. no swelling PSYCHIATRY: Alert and oriented -3, mood and affect normal. NERVOUS SYSTEM: Cranial N 2-12 grossly normal. Moves all 4 limbs. Diffuse weakness, No focal deficits. Skin: no rash - Labs CBC & Chem 7: 06/17/18 11:17 06/17/18 11:17 Labs: Abnormal Lab Results - Last 24 Hours (Table) 06/16/18 06/17/18 06/17/18 Range/Units 17:31 00:08 06:53 RBC (3.80-5.40) m/uL Hgb (11.4-16.0) gm/dL Neutrophils # (1.3-7.7) k/uL Lymphocytes # (1.0-4.8) k/uL Sodium (137-145) mmol/L Carbon Dioxide (22-30) mmol/L BUN (7-17) mg/dL Glucose (74-99) mg/dL POC Glucose (mg/dL) 148 H 136 H 112 H (75-99) mg/dL Calcium (8.4-10.2) mg/dL Total Protein (6.3-8.2) g/dL Albumin (3.5-5.0) g/dL 02/01/19 02/01/19 02/01/19 Range/Units 11:17 11:17 12:21 RBC 3.63 L (3.80-5.40) m/uL Hgb 10.9 L (11.4-16.0) gm/dL Neutrophils # 8.4 H (1.3-7.7) k/uL Lymphocytes # 0.9 L (1.0-4.8) k/uL Sodium 135 L (137-145) mmol/L Carbon Dioxide 32 H (22-30) mmol/L BUN 22 H (7-17) mg/dL Glucose 137 H (74-99) mg/dL POC Glucose (mg/dL) 139 H (75-99) mg/dL Calcium 8.3 L (8.4-10.2) mg/dL Total Protein 4.8 L (6.3-8.2) g/dL Albumin 2.5 L (3.5-5.0) g/dL Assessment and Plan Plan: Assessment and Plan Assessment: -Bowel obstruction ,Status post small bowel resection secondary to closed loop obstruction with bowel ischemia, with wound VAC. Pathology reporting early acute ischemic enteritis with subserosal fibrosis, fat necrosis and acute serositis. -Postoperative ileus and patient has an NG tube and about 400 mL since last -Acute renal failure and hypovolemic hyponatremia from GI losses as mentioned above electrolytes will be replaced and the patient will be started on IV fluids -Chronic severe colonic diverticulosis -Gastroesophageal reflux disease -Essential hypertension -Primary osteoarthritis -Hypokalemia -Hyponatremia, hypovolemic hyponatremia
--- NOTE | 2018-06-17 15:44 | CDI ---
Documentation Clarification Form Date: 06/17/2018 3:35:12 PM From: Jennifer Gamboa CCS, CCDS Admit Date: 06/08/2018 8:46:00 PM Patient Name: Geri Escobar Visit Number: [id number] Discharge Date: ATTENTION: The Clinical Documentation Specialists (CDI) and [facility] Coding Staff appreciate your assistance in clarifying documentation. Please respond to the clarification below the line at the bottom and electronically sign. The CDI & [facility] Coding staff will review the response and follow-up if needed. Please note: Queries are made part of the Legal Health Record. If you have any questions, please contact the author of this message via ITS. Dr. Alexandr Macedo: Per the 06/16 Surgical progress note: "Postoperative ileus" is documented. Per the 06/17 Medical management progress note: "Postoperative ileus and patient has an NG tube and about 400 mL since last. Acute renal failure and hypovolemic hyponatremia from GI losses as mentioned above electrolytes will be replaced and the patient will be started on IV fluids. Chronic severe colonic diverticulosis " Patients Admitting Diagnosis: SBO secondary to closed loop obstruction with bowel ischemia. Post-Operative Diagnosis: Same. Procedure performed: Lysis of adhesions, Small bowel resection History/Risk Factors: GERD, Hypertension, Severe diverticulosis, Hemorrhoids. Clinical Indicators: as above. Treatment: NGT, surgery as above, IV fluids, electrolyte replacement, TPN via PICC line. In order to accurately reflect this patients severity of illness, please clarify if the post-operative diagnosis is: An expected post-procedural or post-surgical condition An unexpected post-procedural or post-surgical condition related to surgical care Other, please specify Unable to determine (Last Revision: August 2017) this is an expected post procedural condition. SAMIAD
[2018-06-17 18:14] LABS: Glucose,Whole Blood 124 mg/dL (75-99)
[2018-06-17] MEDS: LOSARTAN 50 MG TAB PO SCH (20:33)
[2018-06-17] MEDS: MELATONIN 5 MG TABLET PO PRN (20:34)
[2018-06-18 00:12] LABS: Glucose,Whole Blood 125 mg/dL (75-99)
[2018-06-18] MEDS: SODIUM CHLORIDE 0.9% 1,000 ML IV SCH ×2 (01:30→09:37)
[2018-06-18] MEDS: METOCLOPRAMIDE 5 MG/ML 2 ML VIAL IVP SCH ×4 (01:30→17:42)
[2018-06-18 06:02] LABS: Glucose,Whole Blood 107 mg/dL (75-99)
[2018-06-18] MEDS: MVI, ADULT NO.4 WITH VIT K 10 ML, TRACE (CONC-1ML/DOSE) 1 ML in AMINO ACID 4.25%-D10W+L... IV SCH ×3 (07:02)
[2018-06-18] MEDS: IPRATROPIUM-ALBUTEROL 3 ML NEB INHALATION SCH ×5 (07:21→20:06)
[2018-06-18] MEDS: LACTATED RINGERS 1,000 ML IV SCH (09:34)
[2018-06-18] MEDS: PANTOPRAZOLE 40 MG/10 ML VIAL IVP SCH ×2 (09:36→20:47)
[2018-06-18] MEDS: FAT EMULSION 20% 250 ML IV SCH (09:36)
[2018-06-18] MEDS: ENOXAPARIN 40 MG/0.4 ML SYRINGE SQ SCH (09:37)
[2018-06-18 11:06] LABS: HCT 37.2 % (34.0-46.0); HGB 11.7 gm/dL (11.4-16.0); MCH 30.2 pg (25.0-35.0); MCHC 31.4 g/dL (31.0-37.0); MCV 96.1 fL (80.0-100.0); Mean Platelet Volume 7.6; Platelet Count 279 k/uL (150-450); RBC 3.87 m/uL (3.80-5.40); RDW 12.7 % (11.5-15.5)
[2018-06-18 11:18] LABS: Anion Gap 10 mmol/L; Blood Urea Nitrogen 15 mg/dL (7-17); Calcium 8.3 mg/dL (8.4-10.2); Carbon Dioxide 28 mmol/L (22-30); Chloride 99 mmol/L (98-107); Glucose 120 mg/dL (74-99); Magnesium 1.7 mg/dL (1.6-2.3); Phosphorus 3.2 mg/dL (2.5-4.5); Potassium 3.5 mmol/L (3.5-5.1); Sodium 137 mmol/L (137-145)
[2018-06-18 11:43] LABS: Glucose,Whole Blood 140 mg/dL (75-99)
[2018-06-18] MEDS: POTASSIUM CHLORIDE 10 MEQ in WATER FOR INJECTION 1 100ML.BAG IVPB SCH ×4 (12:26→15:55)
[2018-06-18] MEDS: MAGNESIUM SULFATE-D5W PMX 1 GM in DEXTROSE/WATER 1 100ML.BAG IVPB SCH ×2 (12:26→13:37)
--- NOTE | 2018-06-18 14:18 | XR ---
EXAMINATION TYPE: XR chest 2V DATE OF EXAM: 06/18/2018 COMPARISON: Chest x-ray from 2 days ago. HISTORY: Leukocytosis. TECHNIQUE: Frontal and lateral views of the chest are obtained. FINDINGS: New nasogastric tube projects below diaphragm. The cardiac silhouette size remains enlarge d. Right lung remains clear. Persistent left basilar opacity is present. New left-sided PICC line t erminating at cavoatrial junction is present. Atherosclerotic thoracic aorta is redemonstrated. The o sseous structures remain demineralized. IMPRESSION: Cardiomegaly with persistent small left pleural effusion and associated left basilar ate lectasis and/or infiltrate.
--- NOTE | 2018-06-18 14:29 | P.PN ---
Subjective 87-year-old patient of Dr. Dennis Herron. Chronic stable medical conditions include GERD, hypertension, osteoarthritis, diverticulosis. Patient has a normal bowel pattern of a bowel movement daily. Patient now presented with 7 days of no bowel movement. No nausea vomiting. Slight bowel distention. No fever or chills. Computed tomography scan of the abdomen ER did show a small bowel obstruction. NG tube placed. Evaluated by surgery, conservative management recommended. Abdominal x-ray on 06/12 reporting moderately dilated small bowel loops, scattered air-fluid levels with possible closed loop obstruction. Minimal flatus, no bowel movement. Underwent small bowel resection secondary to closed loop obstruction with bowel ischemia, with wound VAC. Pain controlled. Receiving PPN, lipids. NG tube recently discontinued. Denies flatus or bowel movement. Tolerating ice chips, Denies nausea or vomiting. Potassium 3.2. 06/15/2018 Postop day #3 .appears tired, recently ambulated. Minimal flatus passed, no bowel movement. Tolerating ice chips. Scheduled for PICC line placement today. Maintaining O2 sats in the low 90s on room air. 06/16/2018 small bile emesis, passing no flatus, no bowel movement. Abdomen mildly distended. Maintained on TPN and lipids via PICC line. Pain controlled. Chest x-ray yesterday reported bilateral pleural effusions, associated atelectasis. 06/17/2018 Patient had 400 mL out of output since last night from NG tube patient pass gas still has sluggish bowel sounds patient continues to have NG tube drainage and drainage. Patient is intravascularly volume depleted leading to hyponatremia patient was started on IV fluids at 100 mL per hour. Patient denied any abdominal pain.Constitutional: Denied any fatigue denied any fever. 06/18/2018 NG tube output is down IV FLUIDS. Patient is bit to tachapneic, not feeling well because of NG tube and a PICC line. Patient does has sluggish bowel sounds past cast once today. Cardio vascular: denied any chest pain, palpitations Gastrointestinal patient has an NG tube as mentioned above Pulmonary: Denied any shortness of breath cough Neurologic denied any new focal deficits All inpatient medications were reviewed and appropriate changes in these medications as dictated in the interval history and assessment and plan. Objective - Vital Signs Vital signs: Vital Signs Temp 97.9 F 06/18/18 06:05 Pulse 117 H 06/18/18 11:30 Resp 24 02/02/19 06:05 BP 181/63 06/18/18 06:05 Pulse Ox 93 L 06/18/18 06:05 Intake & Output 06/17/18 06/18/18 06/18/18 18:59 06:59 18:59 Intake Total 1011 Output Total 550 Balance 461 Intake: Intake, IV Titration 1011 Amount Mvi, Adult No.4 with Vit 1011 K 10 ml Trace (Conc-1Ml/ Dose) 1 ml In Amino Acid 4.25%-D10w+Lytes*E* 1,000 ml @ 55 mls/hr IV . [id number] [facility] Rx#:[id number] Output: Gastric Drainage 550 Other: Voiding Method Bedside Commode # Voids 3 7 5 - Exam GENERAL: HEENT: Conjunctivae normal. eyes normal. Oral mucosa moist, feels fatigued and NG tube in place no drainage today NECK: No JVD. No thyroid enlargement. No LNs CARDIOVASCULAR: S1, S2 muffled. No murmur, no rubs, no gallops occasional mild tachycardia. RESPIRATION: Nonlabored, Breath sounds diminished in bilateral bases. No rhonchi , wheezing, crackles. ABDOMEN: Soft, distended, status post surgery. Unable to auscultate bowel sounds. NG tube in place LEGS: No edema. no swelling PSYCHIATRY: Alert and oriented -3, mood and affect normal. NERVOUS SYSTEM: Cranial N 2-12 grossly normal. Moves all 4 limbs. Diffuse weakness, No focal deficits. Skin: no rash - Labs CBC & Chem 7: 06/18/18 10:13 06/18/18 10:13 Labs: Abnormal Lab Results - Last 24 Hours (Table) 06/17/18 06/18/18 06/18/18 Range/Units 18:10 00:12 06:00 WBC (3.8-10.6) k/uL Creatinine (0.52-1.04) mg/dL Glucose (74-99) mg/dL POC Glucose (mg/dL) 124 H 125 H 107 H (75-99) mg/dL Calcium (8.4-10.2) mg/dL 06/18/18 06/18/18 06/18/18 Range/Units 10:13 10:13 11:41 WBC 12.0 H (3.8-10.6) k/uL Creatinine 0.43 L (0.52-1.04) mg/dL Glucose 120 H (74-99) mg/dL POC Glucose (mg/dL) 140 H (75-99) mg/dL Calcium 8.3 L (8.4-10.2) mg/dL Assessment and Plan Plan: Assessment and Plan Assessment: -Bowel obstruction ,Status post small bowel resection secondary to closed loop obstruction with bowel ischemia, with wound VAC. -Postoperative ileus and patient has an no significant drainage from NG tube my concern is wall of overload because of tachypnea will obtain a chest x-ray IV fluids will be discontinued but patient will remain on TPN. -Acute renal failure and hypovolemic hyponatremia from GI losses, improved now with IV fluids -Chronic severe colonic diverticulosis -Gastroesophageal reflux disease -Essential hypertension -Primary osteoarthritis -Hypokalemia -Hyponatremia, hypovolemic hyponatremia improved now
[2018-06-18] MEDS: cloNIDine 0.1 MG/24HR PATCH TRANSDERM SCH (14:49)
[2018-06-18 15:27] LABS: Appearance,Urine Clear (Clear); Bilirubin,Urine Negative (Negative); Blood,Urine Negative (Negative); Color,Urine Light Yellow; Glucose,Urine (UA) Negative (Negative); Ketones,Urine Negative (Negative); Leukocyte Esterase,Urine Negative (Negative); Nitrite,Urine Negative (Negative); PH, Urine 7.5 (5.0-8.0); Protein,Urine Negative (Negative); Specific Gravity,Urine 1.007 (1.001-1.035); Urobilinogen,Urine <2.0 mg/dL (<2.0)
[2018-06-18] MEDS: PIPERACILLIN-TAZOBACTAM 3.375 GM in SODIUM CHLORIDE 0.9% 100 ML IVPB SCH (15:29)
--- NOTE | 2018-06-18 16:12 | P.PN ---
Subjective Progress Note Date: 06/18/18 CHIEF COMPLAINT: Small bowel obstruction HISTORY OF PRESENT ILLNESS: The patient is a 87-year-old female status small bowel resection, POD 6. Patient now has ileus. She has an NGT. Pain is controlled. No fevers or chills. Small flatus once today. PHYSICAL EXAM: VITAL SIGNS: Reviewed GENERAL: Well-developed in no acute distress. HEENT: No sclera icterus. Extraocular movements grossly intact. Moist buccal mucosa. Head is atraumatic, normocephalic. Hears conversational speech. NGT bilious. NECK: Supple without lymphadenopathy. CHEST: Non-labored respirations and equal bilateral excursions. CARDIOVASCULAR: Palpable 2+ radial pulses. ABDOMEN: Soft. Non-distended. Incisions are clean dry and intact. MUSCULOSKELETAL: No clubbing, cyanosis. No edema. NEUROLOGIC: No focal or lateralizing signs. Cranial nerves II through XII grossly intact. PSYCH: Appropriate affect. Alert and oriented to person, place and time. SKIN: Well perfused. Good skin turgor. LABS: None ASSESSMENT: 1. Small bowel obstruction 2. Low potassium 3. Low magnesium PLAN: 1. Correct Mag and K to correct ileus. 2. Continue TPN for inadequate protein intake. 3. Await passage of flatus. Objective - Vital Signs Vital signs: Vital Signs Temp 98.2 F 06/18/18 15:00 Pulse 95 06/18/18 15:00 Resp 16 06/18/18 15:00 BP 156/71 06/18/18 15:00 Pulse Ox 93 L 06/18/18 15:00 Intake & Output 06/17/18 06/18/18 06/18/18 18:59 06:59 18:59 Intake Total 1011 1050 Output Total 550 Balance 461 1050 Intake: IV 850 Fat Emulsion 20% 250 ml @ 250 20.833 mls/hr IV DAILY [facility] Rx#:[id number] Magnesium Sulfate-D5w Pmx 100 1 gm In Dextrose/Water 1 100ml.bag @ 100 mls/hr IVPB Q1H [facility] Rx#: [id number] Piperacillin-Tazobactam 3 100 .375 gm In Sodium Chloride 0.9% 100 ml @ 25 mls/hr IVPB Q8HR [facility] Rx# :[id number] Potassium Chloride 10 meq 400 In Water For Injection 1 100ml.bag @ 100 mls/hr IVPB Q1HR [facility] Rx#: [id number] Intake, IV Titration 1011 200 Amount Magnesium Sulfate-D5w Pmx 200 1 gm In Dextrose/Water 1 100ml.bag @ 100 mls/hr IVPB Q1H [facility] Rx#: [id number] Mvi, Adult No.4 with Vit 1011 K 10 ml Trace (Conc-1Ml/ Dose) 1 ml In Amino Acid 4.25%-D10w+Lytes*E* 1,000 ml @ 55 mls/hr IV . [id number] [facility] Rx#:[id number] Output: Gastric Drainage 550 Other: Voiding Method Bedside Commode # Voids 3 7 5 - Labs CBC & Chem 7: 06/18/18 10:13 06/18/18 10:13 Labs: Abnormal Lab Results - Last 24 Hours (Table) 06/17/18 06/18/18 06/18/18 Range/Units 18:10 00:12 06:00 WBC (3.8-10.6) k/uL Creatinine (0.52-1.04) mg/dL Glucose (74-99) mg/dL POC Glucose (mg/dL) 124 H 125 H 107 H (75-99) mg/dL Calcium (8.4-10.2) mg/dL 06/18/18 06/18/18 06/18/18 Range/Units 10:13 10:13 11:41 WBC 12.0 H (3.8-10.6) k/uL Creatinine 0.43 L (0.52-1.04) mg/dL Glucose 120 H (74-99) mg/dL POC Glucose (mg/dL) 140 H (75-99) mg/dL Calcium 8.3 L (8.4-10.2) mg/dL Assessment and Plan (1) Low magnesium levels Current Visit: Yes Status: Acute Code(s): R79.0 - ABNORMAL LEVEL OF BLOOD MINERAL SNOMED Code(s): 720246320 (2) Low serum potassium level Current Visit: Yes Status: Acute Code(s): E87.6 - HYPOKALEMIA SNOMED Code( s): 320741505 (3) Ileus Current Visit: Yes Status: Acute Code(s): K56.7 - ILEUS, UNSPECIFIED SNOMED Code(s): 146677525 (4) S/P small bowel resection Current Visit: Yes Status: Acute Code(s): Z90.49 - ACQUIRED ABSENCE OF OTHER SPECIFIED PARTS OF DIGESTIVE TRACT SNOMED Code(s): 267997974472757 (5) Abdominal adhesions Current Visit: Yes Status: Acute Code(s): K66.0 - PERITONEAL ADHESIONS ( POSTPROCEDURAL) (POSTINFECTION) SNOMED Code(s): 836735658 (6) History of hysterectomy Current Visit: Yes Status: Acute Code(s): Z90.710 - ACQUIRED ABSENCE OF BOTH CERVIX AND UTERUS SNOMED Code(s): 870430639 (7) SBO (small bowel obstruction) Current Visit: Yes Status: Acute Code(s): K56.609 - UNSP INTESTNL OBST, UNSP TO PARTIAL VERSUS COMPLETE OBST SNOMED Code(s): 321513677
[2018-06-18 18:04] LABS: Glucose,Whole Blood 140 mg/dL (75-99)
[2018-06-18] MEDS: LOSARTAN 50 MG TAB PO SCH (20:47)
[2018-06-19 00:10] LABS: Glucose,Whole Blood 125 mg/dL (75-99)
[2018-06-19] MEDS: METOCLOPRAMIDE 5 MG/ML 2 ML VIAL IVP SCH ×6 (01:00→22:22)
[2018-06-19] MEDS: PIPERACILLIN-TAZOBACTAM 3.375 GM in SODIUM CHLORIDE 0.9% 100 ML IVPB SCH ×3 (01:03→16:01)
[2018-06-19] MEDS: MVI, ADULT NO.4 WITH VIT K 10 ML, TRACE (CONC-1ML/DOSE) 1 ML in AMINO ACID 4.25%-D10W+L... IV SCH ×6 (06:47→22:23)
[2018-06-19 07:28] LABS: Glucose,Whole Blood 123 mg/dL (75-99)
[2018-06-19] MEDS: IPRATROPIUM-ALBUTEROL 3 ML NEB INHALATION SCH ×4 (07:54→19:18)
[2018-06-19] MEDS: PANTOPRAZOLE 40 MG/10 ML VIAL IVP SCH ×2 (08:59→22:22)
[2018-06-19] MEDS: ENOXAPARIN 40 MG/0.4 ML SYRINGE SQ SCH (08:59)
[2018-06-19] MEDS: FAT EMULSION 20% 250 ML IV SCH (08:59)
--- NOTE | 2018-06-19 09:52 | US ---
EXAMINATION TYPE: US chest DATE OF EXAM: 06/18/2018 COMPARISON: xray CLINICAL HISTORY: left pleural effusion. TECHNIQUE: Targeted ultrasound of the posterior lower left hemithorax EXAM MEASUREMENTS: Left Pleural Effusion pocket size: 3.6 cm Left skin surface to fluid distance: 1.6 cm Left side marked for possible thoracentesis outside the dept. Pulmonologists are able to review the images in the patient?s EMR. IMPRESSIONS: Pleural effusion as noted.
[2018-06-19 11:14] LABS: Magnesium 2.1 mg/dL (1.6-2.3); Phosphorus 3.7 mg/dL (2.5-4.5)
[2018-06-19 11:18] LABS: Glucose,Whole Blood 132 mg/dL (75-99)
[2018-06-19 11:28] LABS: ALT 42 U/L (9-52); AST 34 U/L (14-36); Albumin 2.8 g/dL (3.5-5.0); Alkaline Phosphatase 73 U/L (38-126); Anion Gap 8 mmol/L; Blood Urea Nitrogen 15 mg/dL (7-17); Calcium 8.6 mg/dL (8.4-10.2); Carbon Dioxide 27 mmol/L (22-30); Chloride 100 mmol/L (98-107); Glucose 125 mg/dL (74-99); Potassium 3.6 mmol/L (3.5-5.1); Sodium 135 mmol/L (137-145); Total Protein 5.6 g/dL (6.3-8.2)
[2018-06-19] MEDS: POTASSIUM CHLORIDE 10 MEQ in WATER FOR INJECTION 1 100ML.BAG IVPB SCH ×2 (12:16→14:00)
[2018-06-19] MEDS: SODIUM CHLORIDE 0.9% 1,000 ML IV SCH (12:45)
--- NOTE | 2018-06-19 13:31 | P.PN ---
Subjective 87-year-old patient of Dr. Dennis Herron. Chronic stable medical conditions include GERD, hypertension, osteoarthritis, diverticulosis. Patient has a normal bowel pattern of a bowel movement daily. Patient now presented with 7 days of no bowel movement. No nausea vomiting. Slight bowel distention. No fever or chills. Computed tomography scan of the abdomen ER did show a small bowel obstruction. NG tube placed. Evaluated by surgery, conservative management recommended. Abdominal x-ray on 06/12 reporting moderately dilated small bowel loops, scattered air-fluid levels with possible closed loop obstruction. Minimal flatus, no bowel movement. Underwent small bowel resection secondary to closed loop obstruction with bowel ischemia, with wound VAC. Pain controlled. Receiving PPN, lipids. NG tube recently discontinued. Denies flatus or bowel movement. Tolerating ice chips, Denies nausea or vomiting. Potassium 3.2. 06/15/2018 Postop day #3 .appears tired, recently ambulated. Minimal flatus passed, no bowel movement. Tolerating ice chips. Scheduled for PICC line placement today. Maintaining O2 sats in the low 90s on room air. 06/16/2018 small bile emesis, passing no flatus, no bowel movement. Abdomen mildly distended. Maintained on TPN and lipids via PICC line. Pain controlled. Chest x-ray yesterday reported bilateral pleural effusions, associated atelectasis. 06/17/2018 Patient had 400 mL out of output since last night from NG tube patient pass gas still has sluggish bowel sounds patient continues to have NG tube drainage and drainage. Patient is intravascularly volume depleted leading to hyponatremia patient was started on IV fluids at 100 mL per hour. Patient denied any abdominal pain.Constitutional: Denied any fatigue denied any fever. 06/18/2018 NG tube output is down IV FLUIDS. Patient is bit to tachapneic, not feeling well because of NG tube and a PICC line. Patient does has sluggish bowel sounds past cast once today. 06/19/2018 Patient still has output from NG tube patient was started on 50 mL of normal saline along with the IV fluids she is getting via antibiotics and TPN. Patient does have pleural effusion on the left side which is 3 cm pocket on the left side, probably not begin to drain we'll also get the opinion from pulmonology regarding the pleural effusion and possibility of drainage. Patient has sluggish or no bowel sounds still not passing much gas Cardio vascular: denied any chest pain, palpitations Gastrointestinal patient has an NG tube as mentioned above Pulmonary: Denied any shortness of breath cough Neurologic denied any new focal deficits All inpatient medications were reviewed and appropriate changes in these medications as dictated in the interval history and assessment and plan. Objective - Vital Signs Vital signs: Vital Signs Temp 97.9 F 06/19/18 05:30 Pulse 104 H 06/19/18 11:52 Resp 24 06/19/18 05:30 BP 170/76 06/19/18 05:30 Pulse Ox 94 L 06/19/18 05:30 Intake & Output 06/18/18 06/19/18 06/19/18 18:59 06:59 18:59 Intake Total 1050 1011 Output Total 312 250 Balance 1050 699 -250 Intake: IV 850 Fat Emulsion 20% 250 ml @ 250 20.833 mls/hr IV DAILY [facility] Rx#:[id number] Magnesium Sulfate-D5w Pmx 100 1 gm In Dextrose/Water 1 100ml.bag @ 100 mls/hr IVPB Q1H [facility] Rx#: [id number] Piperacillin-Tazobactam 3 100 .375 gm In Sodium Chloride 0.9% 100 ml @ 25 mls/hr IVPB Q8HR [facility] Rx# :[id number] Potassium Chloride 10 meq 400 In Water For Injection 1 100ml.bag @ 100 mls/hr IVPB Q1HR [facility] Rx#: [id number] Intake, IV Titration 200 1011 Amount Magnesium Sulfate-D5w Pmx 200 1 gm In Dextrose/Water 1 100ml.bag @ 100 mls/hr IVPB Q1H [facility] Rx#: [id number] Mvi, Adult No.4 with Vit 1011 K 10 ml Trace (Conc-1Ml/ Dose) 1 ml In Amino Acid 4.25%-D10w+Lytes*E* 1,000 ml @ 55 mls/hr IV . [id number] [facility] Rx#:[id number] Output: Urine 250 Post Void Residual 312 Other: Voiding Method Bedside Commode # Voids 5 15 2 - Exam GENERAL: HEENT: Conjunctivae normal. eyes normal. Oral mucosa moist, feels fatigued and NG tube in place no drainage today NECK: No JVD. No thyroid enlargement. No LNs CARDIOVASCULAR: S1, S2 muffled. No murmur, no rubs, no gallops occasional mild tachycardia. RESPIRATION: Nonlabored, Breath sounds diminished in bilateral bases. No rhonchi , wheezing, crackles. ABDOMEN: Soft, distended, status post surgery. Absent bowel sounds LEGS: No edema. no swelling PSYCHIATRY: Alert and oriented -3, mood and affect normal. NERVOUS SYSTEM: Cranial N 2-12 grossly normal. Moves all 4 limbs. Diffuse weakness, No focal deficits. Skin: no rash - Labs CBC & Chem 7: 06/18/18 10:13 06/19/18 10:16 Labs: Abnormal Lab Results - Last 24 Hours (Table) 06/18/18 06/19/18 06/19/18 Range/Units 18:02 00:08 07:19 Sodium (137-145) mmol/L Creatinine (0.52-1.04) mg/dL Glucose (74-99) mg/dL POC Glucose (mg/dL) 140 H 125 H 123 H (75-99) mg/dL Total Protein (6.3-8.2) g/dL Albumin (3.5-5.0) g/dL 06/19/18 06/19/18 Range/Units 10:16 11:16 Sodium 135 L (137-145) mmol/L Creatinine 0.48 L (0.52-1.04) mg/dL Glucose 125 H (74-99) mg/dL POC Glucose (mg/dL) 132 H (75-99) mg/dL Total Protein 5.6 L (6.3-8.2) g/dL Albumin 2.8 L (3.5-5.0) g/dL Microbiology - Last 24 Hours (Table) 06/18/18 14:00 Urine Culture - Preliminary Urine,Voided Assessment and Plan Plan: Assessment and Plan Assessment: -Bowel obstruction ,Status post small bowel resection secondary to closed loop obstruction with bowel ischemia, with wound VAC. -Postoperative ileus and patient has an no significant drainage from NG tube my concern is wall of overload because of tachypnea will obtain a chest x-ray IV fluids will be discontinued but patient will remain on TPN. -Acute renal failure and hypovolemic hyponatremia from GI losses, improved now with IV fluids -Pleural effusion on the left side probably secondary to IV fluids low suspicion for parapneumonic effusion, pulmonary consultation as mentioned above -Chronic severe colonic diverticulosis -Gastroesophageal reflux disease -Essential hypertension -Primary osteoarthritis -Hypokalemia -Hyponatremia, hypovolemic hyponatremia improved now
--- NOTE | 2018-06-19 14:55 | P.PN ---
Subjective Progress Note Date: 06/19/18 CHIEF COMPLAINT: Small bowel obstruction HISTORY OF PRESENT ILLNESS: The patient is a 87-year-old female status small bowel resection, POD 7. Family at bedside. Minimal ambulation noted. She reports occasional left lower quadrant abdominal pain. No passage of flatus. NG tube present. PHYSICAL EXAM: VITAL SIGNS: Reviewed GENERAL: Well-developed in no acute distress. HEENT: No sclera icterus. Extraocular movements grossly intact. Moist buccal mucosa. Head is atraumatic, normocephalic. Hears conversational speech. NGT bilious. NECK: Supple without lymphadenopathy. CHEST: Non-labored respirations and equal bilateral excursions. CARDIOVASCULAR: Palpable 2+ radial pulses. ABDOMEN: Soft. Non-distended. Incisions are clean dry and intact. MUSCULOSKELETAL: No clubbing, cyanosis. No edema. NEUROLOGIC: No focal or lateralizing signs. Cranial nerves II through XII grossly intact. PSYCH: Appropriate affect. Alert and oriented to person, place and time. SKIN: Well perfused. Good skin turgor. LABS: Reviewed ASSESSMENT: 1. Small bowel obstruction 2. Low potassium 3. Low magnesium 4. Ileus 5. Small bowel resection PLAN: 1. Ambulation encouraged to address ileus 2. Patient has IV fluids total of 175 mL per hour running. Likely she is in positive fluid balance/volume overload 3. Agree with pulmonary consultation for bilateral pleural effusions Objective - Vital Signs Vital signs: Vital Signs Temp 97.9 F 06/19/18 05:30 Pulse 104 H 06/19/18 11:52 Resp 24 06/19/18 05:30 BP 170/76 06/19/18 05:30 Pulse Ox 94 L 06/19/18 05:30 Intake & Output 06/18/18 06/19/18 06/19/18 18:59 06:59 18:59 Intake Total 1050 1011 1408 Output Total 312 375 Balance 0113 355 2674 Intake: IV 850 1040 Fat Emulsion 20% 250 ml @ 250 20.833 mls/hr IV DAILY [facility] Rx#:[id number] Magnesium Sulfate-D5w Pmx 100 1 gm In Dextrose/Water 1 100ml.bag @ 100 mls/hr IVPB Q1H [facility] Rx#: [id number] Mvi, Adult No.4 with Vit 440 K 10 ml Trace (Conc-1Ml/ Dose) 1 ml In Amino Acid 4.25%-D10w+Lytes*E* 1,000 ml @ 55 mls/hr IV . [id number] [facility] Rx#:[id number] Piperacillin-Tazobactam 3 100 .375 gm In Sodium Chloride 0.9% 100 ml @ 25 mls/hr IVPB Q8HR [facility] Rx# :[id number] Potassium Chloride 10 meq 200 In Water For Injection 1 100ml.bag @ 100 mls/hr IVPB Q1H [facility] Rx#: [id number] Potassium Chloride 10 meq 400 In Water For Injection 1 100ml.bag @ 100 mls/hr IVPB Q1HR [facility] Rx#: [id number] Sodium Chloride 0.9% 1, 400 000 ml @ 50 mls/hr IV . Q20H [facility] Rx#:[id number] Intake, IV Titration 200 1011 368 Amount Fat Emulsion 20% 250 ml @ 168 20.833 mls/hr IV DAILY [facility] Rx#:[id number] Magnesium Sulfate-D5w Pmx 200 1 gm In Dextrose/Water 1 100ml.bag @ 100 mls/hr IVPB Q1H [facility] Rx#: [id number] Mvi, Adult No.4 with Vit 1011 K 10 ml Trace (Conc-1Ml/ Dose) 1 ml In Amino Acid 4.25%-D10w+Lytes*E* 1,000 ml @ 55 mls/hr IV . [id number] [facility] Rx#:[id number] Piperacillin-Tazobactam 3 200 .375 gm In Sodium Chloride 0.9% 100 ml @ 25 mls/hr IVPB Q8HR [facility] Rx# :[id number] Output: Gastric Drainage 125 Urine 250 Post Void Residual 312 Other: Voiding Method Bedside Commode # Voids 5 15 7 # Bowel Movements 0 - Labs CBC & Chem 7: 06/18/18 10:13 06/19/18 10:16 Labs: Abnormal Lab Results - Last 24 Hours (Table) 06/18/18 06/19/18 06/19/18 Range/Units 18:02 00:08 07:19 Sodium (137-145) mmol/L Creatinine (0.52-1.04) mg/dL Glucose (74-99) mg/dL POC Glucose (mg/dL) 140 H 125 H 123 H (75-99) mg/dL Total Protein (6.3-8.2) g/dL Albumin (3.5-5.0) g/dL 06/19/18 06/19/18 Range/Units 10:16 11:16 Sodium 135 L (137-145) mmol/L Creatinine 0.48 L (0.52-1.04) mg/dL Glucose 125 H (74-99) mg/dL POC Glucose (mg/dL) 132 H (75-99) mg/dL Total Protein 5.6 L (6.3-8.2) g/dL Albumin 2.8 L (3.5-5.0) g/dL Microbiology - Last 24 Hours (Table) 06/18/18 14:00 Urine Culture - Preliminary Urine,Voided Assessment and Plan (1) Low magnesium levels Current Visit: Yes Status: Acute Code(s): R79.0 - ABNORMAL LEVEL OF BLOOD MINERAL SNOMED Code(s): 597188249 (2) Low serum potassium level Current Visit: Yes Status: Acute Code(s): E87.6 - HYPOKALEMIA SNOMED Code( s): 234562073 (3) Ileus Current Visit: Yes Status: Acute Code(s): K56.7 - ILEUS, UNSPECIFIED SNOMED Code(s): 667142153 (4) S/P small bowel resection Current Visit: Yes Status: Acute Code(s): Z90.49 - ACQUIRED ABSENCE OF OTHER SPECIFIED PARTS OF DIGESTIVE TRACT SNOMED Code(s): 863611126833469 (5) Abdominal adhesions Current Visit: Yes Status: Acute Code(s): K66.0 - PERITONEAL ADHESIONS ( POSTPROCEDURAL) (POSTINFECTION) SNOMED Code(s): 900336668 (6) History of hysterectomy Current Visit: Yes Status: Acute Code(s): Z90.710 - ACQUIRED ABSENCE OF BOTH CERVIX AND UTERUS SNOMED Code(s): 126161323 (7) SBO (small bowel obstruction) Current Visit: Yes Status: Acute Code(s): K56.609 - UNSP INTESTNL OBST, UNSP TO PARTIAL VERSUS COMPLETE OBST SNOMED Code(s): 776613244
[2018-06-19 16:53] LABS: Glucose,Whole Blood 139 mg/dL (75-99)
[2018-06-20] MEDS: PIPERACILLIN-TAZOBACTAM 3.375 GM in SODIUM CHLORIDE 0.9% 100 ML IVPB SCH ×4 (01:08→23:07)
[2018-06-20] MEDS: LOSARTAN 50 MG TAB PO SCH ×2 (01:37→20:45)
[2018-06-20] MEDS: MELATONIN 5 MG TABLET PO PRN ×2 (01:37→21:44)
[2018-06-20 01:51] LABS: Glucose,Whole Blood 122 mg/dL (75-99)
[2018-06-20] MEDS: ACETAMINOPHEN TAB 500 MG TAB PO PRN (04:29)
[2018-06-20 06:14] LABS: Glucose,Whole Blood 119 mg/dL (75-99)
[2018-06-20] MEDS: METOCLOPRAMIDE 5 MG/ML 2 ML VIAL IVP SCH ×4 (06:50→23:08)
[2018-06-20 07:54] LABS: ALT 33 U/L (9-52); AST 28 U/L (14-36); Albumin 2.4 g/dL (3.5-5.0); Alkaline Phosphatase 53 U/L (38-126); Anion Gap 4 mmol/L; Blood Urea Nitrogen 17 mg/dL (7-17); Calcium 8.2 mg/dL (8.4-10.2); Carbon Dioxide 30 mmol/L (22-30); Chloride 103 mmol/L (98-107); Glucose 127 mg/dL (74-99); Magnesium 2.1 mg/dL (1.6-2.3); Phosphorus 4.2 mg/dL (2.5-4.5); Potassium 3.6 mmol/L (3.5-5.1); Sodium 137 mmol/L (137-145); Total Bilirubin 0.8 mg/dL (0.2-1.3); Total Protein 4.8 g/dL (6.3-8.2)
[2018-06-20] MEDS: IPRATROPIUM-ALBUTEROL 3 ML NEB INHALATION SCH ×4 (07:56→19:39)
[2018-06-20] MEDS: SODIUM CHLORIDE 0.9% 1,000 ML IV SCH (09:37)
[2018-06-20] MEDS: FAT EMULSION 20% 250 ML IV SCH (09:38)
[2018-06-20] MEDS: ENOXAPARIN 40 MG/0.4 ML SYRINGE SQ SCH (09:38)
[2018-06-20] MEDS: PANTOPRAZOLE 40 MG/10 ML VIAL IVP SCH ×2 (09:38→20:44)
[2018-06-20 12:09] LABS: Glucose,Whole Blood 112 mg/dL (75-99)
[2018-06-20] MEDS: POTASSIUM CHLORIDE 10 MEQ in WATER FOR INJECTION 1 100ML.BAG IVPB SCH ×2 (12:34→13:35)
--- NOTE | 2018-06-20 13:42 | P.CNPUL ---
<Gricelda Barnes E - Last Filed: 06/20/18 13:21> History of Present Illness Consult date: 06/20/18 Requesting physician: Anastacio Huerta Reason for consult: pleural effusion Chief complaint: shortness of breath History of present illness: HPI: This is an 87-year-old female patient being seen examined and evaluated today while covering for Dr. Raphael. This patient does have a past medical history of GERD, hypertension, osteoarthritis, diverticulosis. The patient came into the hospital and was found to have a small bowel obstruction. The patient did go for a bowel resection and also developed a postop ileus. She currently has an NG tube that is hooked to suction. She has a PICC line and is receiving TPN and lipids. Patient also has a wound VAC in place. She did have a chest x-ray which did show cardiomegaly and persistent small left effusion with infiltrate/atelectasis. Patient then underwent an ultrasound of the chest which did reveal a left 3.6 and a meter effusion which is too small to undergo a thoracentesis at this point. The patient states her breathing has improved in the last day. She denies any cough or congestion. Review of Systems 14 point review of systems was completed and negative unless noted above in the HPI Past Medical History Past Medical History: Cancer, GERD/Reflux, Hypertension, Osteoarthritis (OA), Pneumonia Additional Past Medical History / Comment(s): hemorrhoids, uti's, hx squamous cell cancer perineum lt side, bronchitis,diverticulosis, cataract, had pne vaccine in past 5 years History of Any Multi-Drug Resistant Organisms: None Reported Past Surgical History: Hysterectomy Additional Past Surgical History / Comment(s): hemorrhoid surg , bladder suspension, egd/colonoscopy/polypectomy(benign),excision squamous cell skin cancer. Past Anesthesia/Blood Transfusion Reactions: No Reported Reaction Additional Past Anesthesia/Blood Transfusion Reaction / Comment(s): pt stated she has never received any blood transfusions Smoking Status: Never smoker - Past Family History Mother History Unknown: Yes Father History Unknown: Yes Sister(s) Family Medical History: Cancer Additional Family Medical History / Comment(s): unk type Medications and Allergies Home Medications Medication Instructions Recorded Confirmed Type Aspirin EC [Ecotrin Low Dose] 81 mg PO ONCE PRN 09/09/16 06/08/18 History Cholecalciferol [Vitamin D3] 5,000 unit PO DAILY 04/22/17 06/08/18 History Losartan Potassium [Cozaar] 100 mg PO HS 04/22/17 06/08/18 History Allergies Allergy/AdvReac Type Severity Reaction Status Date / Time Sulfa (Sulfonamide Allergy Unknown Verified 06/08/18 15:22 Antibiotics) Childhood Physical Exam Vitals: Vital Signs Temp Pulse Pulse Resp BP Pulse Ox 06/20/18 08:00 24 06/20/18 05:39 98.4 F 103 H 24 146/78 94 L 06/20/18 00:00 103 H 24 06/19/18 22:15 98.3 F 101 H 22 113/62 93 L 06/19/18 19:29 98 06/19/18 19:19 100 06/19/18 15:55 102 H 06/19/18 15:44 104 H 06/19/18 15:00 98.6 F 100 16 130/67 92 L Intake and Output 06/19/18 06/20/18 06/20/18 22:59 06:59 14:59 Intake Total 858 Output Total 1000 Balance 858 -1000 Intake: Intake, IV Titration 858 Amount Mvi, Adult No.4 with Vit 858 K 10 ml Trace (Conc-1Ml/ Dose) 1 ml In Amino Acid 4.25%-D10w+Lytes*E* 1,000 ml @ 55 mls/hr IV . [id number] [facility] Rx#:[id number] Output: Urine 1000 Other: Voiding Method Bedside Commode Bedside Commode Diaper Diaper # Voids 2 7 GENERAL EXAM: Alert, , comfortable in no apparent distress. HEAD: Normocephalic. EYES: Normal reaction of pupils, equal size. NOSE: Clear with pink turbinates. NG tube in place THROAT: No erythema or exudates. NECK: No masses, no JVD. CHEST: No chest wall deformity. LUNGS: Equal air entry with no crackles, wheeze, rhonchi or dullness. Diminished bases CVS: S1 and S2 normal with no audible mumurs, regular rhythm. ABDOMEN: No hepatosplenomegaly, normal bowel sounds, no guarding or rigidity. Wound VAC in place EXTREMITIES: No edema noted, pedal pulses palpable. CENTRAL NERVOUS SYSTEM: No focal deficits, tone is normal in all 4 extremities. Results - Laboratory Findings CBC and BMP: 02/02/19 10:13 06/20/18 07:11 PT/INR, D-dimer PT 9.5 sec (9.0-12.0) 06/08/18 15:22 INR 0.9 (<1.2) 06/08/18 15:22 Abnormal lab findings: Abnormal Labs 06/08/18 06/08/18 06/09/18 15:20 15:22 03:30 WBC 13.1 H RBC Hgb MCHC Neutrophils # 11.8 H Lymphocytes # 0.8 L Sodium Potassium Chloride Carbon Dioxide BUN Creatinine Glucose 133 H POC Glucose (mg/dL) Calcium Phosphorus Alkaline Phosphatase Total Protein Albumin Ur Specific [place] 1.039 H Urine Ketones 1+ H Urine Blood Small H Urine RBC 6 H Ur Squamous Epith Cells 5 H Urine Bacteria Rare H Urine Mucus Rare H 06/10/18 06/12/18 06/13/18 08:18 08:26 07:50 WBC RBC Hgb MCHC Neutrophils # Lymphocytes # Sodium Potassium Chloride 110 H 108 H Carbon Dioxide 19 L 20 L BUN Creatinine Glucose 101 H POC Glucose (mg/dL) Calcium Phosphorus Alkaline Phosphatase Total Protein Albumin Ur Specific [place] Urine Ketones Urine Blood Urine RBC Ur Squamous Epith Cells Urine Bacteria Urine Mucus 06/13/18 06/14/18 06/14/18 15:03 05:27 08:14 WBC RBC Hgb MCHC Neutrophils # Lymphocytes # Sodium 136 L Potassium 3.2 L Chloride Carbon Dioxide BUN Creatinine Glucose 149 H POC Glucose (mg/dL) 122 H Calcium 8.3 L Phosphorus 1.9 L Alkaline Phosphatase Total Protein Albumin 2.6 L Ur Specific [place] Urine Ketones Urine Blood Urine RBC Ur Squamous Epith Cells Urine Bacteria Urine Mucus 06/14/18 06/14/18 06/14/18 11:34 17:33 23:56 WBC RBC Hgb MCHC Neutrophils # Lymphocytes # Sodium Potassium Chloride Carbon Dioxide BUN Creatinine Glucose POC Glucose (mg/dL) 150 H 135 H 130 H Calcium Phosphorus Alkaline Phosphatase Total Protein Albumin Ur Specific [place] Urine Ketones Urine Blood Urine RBC Ur Squamous Epith Cells Urine Bacteria Urine Mucus 06/15/18 06/15/18 06/15/18 06:49 08:29 08:29 WBC RBC Hgb MCHC Neutrophils # 8.6 H Lymphocytes # 0.9 L Sodium Potassium Chloride Carbon Dioxide BUN 18 H Creatinine 0.49 L Glucose 165 H POC Glucose (mg/dL) 155 H Calcium Phosphorus Alkaline Phosphatase Total Protein 5.8 L Albumin 3.0 L Ur Specific [place] Urine Ketones Urine Blood Urine RBC Ur Squamous Epith Cells Urine Bacteria Urine Mucus 06/15/18 06/15/18 06/16/18 13:23 17:05 00:07 WBC RBC Hgb MCHC Neutrophils # Lymphocytes # Sodium Potassium Chloride Carbon Dioxide BUN Creatinine Glucose POC Glucose (mg/dL) 149 H 203 H 165 H Calcium Phosphorus Alkaline Phosphatase Total Protein Albumin Ur Specific [place] Urine Ketones Urine Blood Urine RBC Ur Squamous Epith Cells Urine Bacteria Urine Mucus 06/16/18 06/16/18 06/16/18 06:21 08:50 08:50 WBC RBC Hgb MCHC 30.0 L Neutrophils # 7.9 H Lymphocytes # 0.6 L Sodium 131 L Potassium Chloride Carbon Dioxide BUN 27 H Creatinine 0.48 L Glucose 151 H POC Glucose (mg/dL) 144 H Calcium Phosphorus Alkaline Phosphatase 33 L Total Protein 5.2 L Albumin 2.6 L Ur Specific [place] Urine Ketones Urine Blood Urine RBC Ur Squamous Epith Cells Urine Bacteria Urine Mucus 06/16/18 06/16/18 06/17/18 11:41 17:31 00:08 WBC RBC Hgb MCHC Neutrophils # Lymphocytes # Sodium Potassium Chloride Carbon Dioxide BUN Creatinine Glucose POC Glucose (mg/dL) 127 H 148 H 136 H Calcium Phosphorus Alkaline Phosphatase Total Protein Albumin Ur Specific [place] Urine Ketones Urine Blood Urine RBC Ur Squamous Epith Cells Urine Bacteria Urine Mucus 06/17/18 06/17/18 06/17/18 06:53 11:17 11:17 WBC RBC 3.63 L Hgb 10.9 L MCHC Neutrophils # 8.4 H Lymphocytes # 0.9 L Sodium 135 L Potassium Chloride Carbon Dioxide 32 H BUN 22 H Creatinine Glucose 137 H POC Glucose (mg/dL) 112 H Calcium 8.3 L Phosphorus Alkaline Phosphatase Total Protein 4.8 L Albumin 2.5 L Ur Specific [place] Urine Ketones Urine Blood Urine RBC Ur Squamous Epith Cells Urine Bacteria Urine Mucus 06/17/18 06/17/18 06/18/18 12:21 18:10 00:12 WBC RBC Hgb MCHC Neutrophils # Lymphocytes # Sodium Potassium Chloride Carbon Dioxide BUN Creatinine Glucose POC Glucose (mg/dL) 139 H 124 H 125 H Calcium Phosphorus Alkaline Phosphatase Total Protein Albumin Ur Specific [place] Urine Ketones Urine Blood Urine RBC Ur Squamous Epith Cells Urine Bacteria Urine Mucus 06/18/18 06/18/18 06/18/18 06:00 10:13 10:13 WBC 12.0 H RBC Hgb MCHC Neutrophils # Lymphocytes # Sodium Potassium Chloride Carbon Dioxide BUN Creatinine 0.43 L Glucose 120 H POC Glucose (mg/dL) 107 H Calcium 8.3 L Phosphorus Alkaline Phosphatase Total Protein Albumin Ur Specific [place] Urine Ketones Urine Blood Urine RBC Ur Squamous Epith Cells Urine Bacteria Urine Mucus 06/18/18 06/18/18 06/19/18 11:41 18:02 00:08 WBC RBC Hgb MCHC Neutrophils # Lymphocytes # Sodium Potassium Chloride Carbon Dioxide BUN Creatinine Glucose POC Glucose (mg/dL) 140 H 140 H 125 H Calcium Phosphorus Alkaline Phosphatase Total Protein Albumin Ur Specific [place] Urine Ketones Urine Blood Urine RBC Ur Squamous Epith Cells Urine Bacteria Urine Mucus 06/19/18 06/19/18 06/19/18 07:19 10:16 11:16 WBC RBC Hgb MCHC Neutrophils # Lymphocytes # Sodium 135 L Potassium Chloride Carbon Dioxide BUN Creatinine 0.48 L Glucose 125 H POC Glucose (mg/dL) 123 H 132 H Calcium Phosphorus Alkaline Phosphatase Total Protein 5.6 L Albumin 2.8 L Ur Specific [place] Urine Ketones Urine Blood Urine RBC Ur Squamous Epith Cells Urine Bacteria Urine Mucus 06/19/18 06/20/18 06/20/18 16:50 01:50 06:13 WBC RBC Hgb MCHC Neutrophils # Lymphocytes # Sodium Potassium Chloride Carbon Dioxide BUN Creatinine Glucose POC Glucose (mg/dL) 139 H 122 H 119 H Calcium Phosphorus Alkaline Phosphatase Total Protein Albumin Ur Specific [place] Urine Ketones Urine Blood Urine RBC Ur Squamous Epith Cells Urine Bacteria Urine Mucus 06/20/18 06/20/18 07:11 12:08 WBC RBC Hgb MCHC Neutrophils # Lymphocytes # Sodium Potassium Chloride Carbon Dioxide BUN Creatinine Glucose 127 H POC Glucose (mg/dL) 112 H Calcium 8.2 L Phosphorus Alkaline Phosphatase Total Protein 4.8 L Albumin 2.4 L Ur Specific [place] Urine Ketones Urine Blood Urine RBC Ur Squamous Epith Cells Urine Bacteria Urine Mucus - Diagnostic Findings Chest x-ray: report reviewed, image reviewed Assessment and Plan Assessment: Assessment Small left-sided effusion Small bowel obstruction Postoperative ileus Acute renal failure with hypovolemic and hyponatremia GI loss Chronic severe chronic diverticulosis GERD Plan Pleural effusion too small for thoracentesis at this time Medications have been reviewed and will be continued as ordered. Continue with pulmonary hygiene, coughing and deep breathing exercises, and supportive care. Supplemental oxygen to maintain oxygen saturations of 92% or better. Continue nebulizer treatments. Continue with incentive spirometer GI and DVT prophylaxis. We will continue to monitor labs/results and adjust treatment as necessary. Further recommendations pending. I, the signing physician performed an examination of the patient, discussed and directed their management with the nurse practitioner. I have reviewed the nurse practitioner's note and agree with the documented findings, orders and plan of care. Nurse practitioner acting as a scribe for the signing physician. <Lilian Reddy A - Last Filed: 06/20/18 16:11> Physical Exam Osteopathic Statement: *. No significant issues noted on an osteopathic structural exam other than those noted in the History and Physical/Consult. Vitals: Vital Signs Temp Pulse Pulse Resp BP Pulse Ox 06/20/18 15:59 100 06/20/18 15:49 100 06/20/18 14:50 99.2 F 101 H 16 151/76 93 L 06/20/18 08:00 24 06/20/18 05:39 98.4 F 103 H 24 146/78 94 L 06/20/18 00:00 103 H 24 06/19/18 22:15 98.3 F 101 H 22 113/62 93 L 06/19/18 19:29 98 06/19/18 19:19 100 Intake and Output 06/20/18 06/20/18 06/20/18 06:59 14:59 22:59 Output Total 1000 Balance -1000 Output: Urine 1000 Other: Voiding Method Bedside Commode Bedside Commode Bedside Commode Diaper Diaper # Voids 7 Weight 58.513 kg Results - Laboratory Findings CBC and BMP: 06/18/18 10:13 06/20/18 07:11 PT/INR, D-dimer PT 9.5 sec (9.0-12.0) 06/08/18 15:22 INR 0.9 (<1.2) 06/08/18 15:22 Abnormal lab findings: Abnormal Labs 06/08/18 06/08/18 06/09/18 15:20 15:22 03:30 WBC 13.1 H RBC Hgb MCHC Neutrophils # 11.8 H Lymphocytes # 0.8 L Sodium Potassium Chloride Carbon Dioxide BUN Creatinine Glucose 133 H POC Glucose (mg/dL) Calcium Phosphorus Alkaline Phosphatase Total Protein Albumin Ur Specific [place] 1.039 H Urine Ketones 1+ H Urine Blood Small H Urine RBC 6 H Ur Squamous Epith Cells 5 H Urine Bacteria Rare H Urine Mucus Rare H 06/10/18 06/12/18 06/13/18 08:18 08:26 07:50 WBC RBC Hgb MCHC Neutrophils # Lymphocytes # Sodium Potassium Chloride 110 H 108 H Carbon Dioxide 19 L 20 L BUN Creatinine Glucose 101 H POC Glucose (mg/dL) Calcium Phosphorus Alkaline Phosphatase Total Protein Albumin Ur Specific [place] Urine Ketones Urine Blood Urine RBC Ur Squamous Epith Cells Urine Bacteria Urine Mucus 06/13/18 06/14/18 06/14/18 15:03 05:27 08:14 WBC RBC Hgb MCHC Neutrophils # Lymphocytes # Sodium 136 L Potassium 3.2 L Chloride Carbon Dioxide BUN Creatinine Glucose 149 H POC Glucose (mg/dL) 122 H Calcium 8.3 L Phosphorus 1.9 L Alkaline Phosphatase Total Protein Albumin 2.6 L Ur Specific [place] Urine Ketones Urine Blood Urine RBC Ur Squamous Epith Cells Urine Bacteria Urine Mucus 06/14/18 06/14/18 06/14/18 11:34 17:33 23:56 WBC RBC Hgb MCHC Neutrophils # Lymphocytes # Sodium Potassium Chloride Carbon Dioxide BUN Creatinine Glucose POC Glucose (mg/dL) 150 H 135 H 130 H Calcium Phosphorus Alkaline Phosphatase Total Protein Albumin Ur Specific [place] Urine Ketones Urine Blood Urine RBC Ur Squamous Epith Cells Urine Bacteria Urine Mucus 06/15/18 06/15/18 06/15/18 06:49 08:29 08:29 WBC RBC Hgb MCHC Neutrophils # 8.6 H Lymphocytes # 0.9 L Sodium Potassium Chloride Carbon Dioxide BUN 18 H Creatinine 0.49 L Glucose 165 H POC Glucose (mg/dL) 155 H Calcium Phosphorus Alkaline Phosphatase Total Protein 5.8 L Albumin 3.0 L Ur Specific [place] Urine Ketones Urine Blood Urine RBC Ur Squamous Epith Cells Urine Bacteria Urine Mucus 06/15/18 06/15/18 06/16/18 13:23 17:05 00:07 WBC RBC Hgb MCHC Neutrophils # Lymphocytes # Sodium Potassium Chloride Carbon Dioxide BUN Creatinine Glucose POC Glucose (mg/dL) 149 H 203 H 165 H Calcium Phosphorus Alkaline Phosphatase Total Protein Albumin Ur Specific [place] Urine Ketones Urine Blood Urine RBC Ur Squamous Epith Cells Urine Bacteria Urine Mucus 06/16/18 06/16/18 06/16/18 06:21 08:50 08:50 WBC RBC Hgb MCHC 30.0 L Neutrophils # 7.9 H Lymphocytes # 0.6 L Sodium 131 L Potassium Chloride Carbon Dioxide BUN 27 H Creatinine 0.48 L Glucose 151 H POC Glucose (mg/dL) 144 H Calcium Phosphorus Alkaline Phosphatase 33 L Total Protein 5.2 L Albumin 2.6 L Ur Specific [place] Urine Ketones Urine Blood Urine RBC Ur Squamous Epith Cells Urine Bacteria Urine Mucus 06/16/18 06/16/18 06/17/18 11:41 17:31 00:08 WBC RBC Hgb MCHC Neutrophils # Lymphocytes # Sodium Potassium Chloride Carbon Dioxide BUN Creatinine Glucose POC Glucose (mg/dL) 127 H 148 H 136 H Calcium Phosphorus Alkaline Phosphatase Total Protein Albumin Ur Specific [place] Urine Ketones Urine Blood Urine RBC Ur Squamous Epith Cells Urine Bacteria Urine Mucus 06/17/18 06/17/18 06/17/18 06:53 11:17 11:17 WBC RBC 3.63 L Hgb 10.9 L MCHC Neutrophils # 8.4 H Lymphocytes # 0.9 L Sodium 135 L Potassium Chloride Carbon Dioxide 32 H BUN 22 H Creatinine Glucose 137 H POC Glucose (mg/dL) 112 H Calcium 8.3 L Phosphorus Alkaline Phosphatase Total Protein 4.8 L Albumin 2.5 L Ur Specific [place] Urine Ketones Urine Blood Urine RBC Ur Squamous Epith Cells Urine Bacteria Urine Mucus 06/17/18 06/17/18 06/18/18 12:21 18:10 00:12 WBC RBC Hgb MCHC Neutrophils # Lymphocytes # Sodium Potassium Chloride Carbon Dioxide BUN Creatinine Glucose POC Glucose (mg/dL) 139 H 124 H 125 H Calcium Phosphorus Alkaline Phosphatase Total Protein Albumin Ur Specific [place] Urine Ketones Urine Blood Urine RBC Ur Squamous Epith Cells Urine Bacteria Urine Mucus 06/18/18 06/18/18 06/18/18 06:00 10:13 10:13 WBC 12.0 H RBC Hgb MCHC Neutrophils # Lymphocytes # Sodium Potassium Chloride Carbon Dioxide BUN Creatinine 0.43 L Glucose 120 H POC Glucose (mg/dL) 107 H Calcium 8.3 L Phosphorus Alkaline Phosphatase Total Protein Albumin Ur Specific [place] Urine Ketones Urine Blood Urine RBC Ur Squamous Epith Cells Urine Bacteria Urine Mucus 06/18/18 06/18/18 06/19/18 11:41 18:02 00:08 WBC RBC Hgb MCHC Neutrophils # Lymphocytes # Sodium Potassium Chloride Carbon Dioxide BUN Creatinine Glucose POC Glucose (mg/dL) 140 H 140 H 125 H Calcium Phosphorus Alkaline Phosphatase Total Protein Albumin Ur Specific [place] Urine Ketones Urine Blood Urine RBC Ur Squamous Epith Cells Urine Bacteria Urine Mucus 06/19/18 06/19/18 06/19/18 07:19 10:16 11:16 WBC RBC Hgb MCHC Neutrophils # Lymphocytes # Sodium 135 L Potassium Chloride Carbon Dioxide BUN Creatinine 0.48 L Glucose 125 H POC Glucose (mg/dL) 123 H 132 H Calcium Phosphorus Alkaline Phosphatase Total Protein 5.6 L Albumin 2.8 L Ur Specific [place] Urine Ketones Urine Blood Urine RBC Ur Squamous Epith Cells Urine Bacteria Urine Mucus 06/19/18 06/20/18 06/20/18 16:50 01:50 06:13 WBC RBC Hgb MCHC Neutrophils # Lymphocytes # Sodium Potassium Chloride Carbon Dioxide BUN Creatinine Glucose POC Glucose (mg/dL) 139 H 122 H 119 H Calcium Phosphorus Alkaline Phosphatase Total Protein Albumin Ur Specific [place] Urine Ketones Urine Blood Urine RBC Ur Squamous Epith Cells Urine Bacteria Urine Mucus 06/20/18 06/20/18 07:11 12:08 WBC RBC Hgb MCHC Neutrophils # Lymphocytes # Sodium Potassium Chloride Carbon Dioxide BUN Creatinine Glucose 127 H POC Glucose (mg/dL) 112 H Calcium 8.2 L Phosphorus Alkaline Phosphatase Total Protein 4.8 L Albumin 2.4 L Ur Specific [place] Urine Ketones Urine Blood Urine RBC Ur Squamous Epith Cells Urine Bacteria Urine Mucus Assessment and Plan Assessment: Patient seen and examined. Patient is currently on room air. She states her breathing is good. She denies any shortness of breath or chest pain. Continue to monitor her small left pleural effusion. We will repeat chest x-ray in a.m. Encourage ambulation and deep breathing exercises. ~Lilian Reddy DO
--- NOTE | 2018-06-20 14:38 | P.PN ---
Subjective Progress Note Date: 06/20/18 CHIEF COMPLAINT: Abdominal pain HISTORY OF PRESENT ILLNESS: Patient seen and examined at bedside. Patient underwent small bowel resection secondary to closed loop obstruction with bowel ischemia. NG tube intact. No BM. Reports passing flatus this morning. Family at bedside and verified that patient has been passing flatus. Remains on TPN. PHYSICAL EXAM: VITAL SIGNS: Currently stable. GENERAL: Well-developed in no acute distress. HEENT: NG tube to LIS. No sclera icterus. Extraocular movements grossly intact. Moist buccal mucosa. Head is atraumatic, normocephalic. Hears conversational speech. No nasal drainage. NECK: Supple without lymphadenopathy. CHEST: Non-labored respirations and equal bilateral excursions. CARDIOVASCULAR: Regular rate with regular rhythm. Palpable 2+ radial pulses. ABDOMEN: Soft. Nondistended. Bowel sounds present x 4 quadrants. PREVENA wound VAC in place. MUSCULOSKELETAL: No clubbing, cyanosis or edema. NEUROLOGIC: No focal or lateralizing signs. Cranial nerves II through XII grossly intact. PSYCH: Appropriate affect. Alert and oriented to person, place and time. SKIN: Well perfused. Good skin turgor. ASSESSMENT: 1. Small bowel obstruction secondary to closed loop obstruction with bowel ischemia, status post lysis of adhesions and small bowel resection 2. Postoperative ileus PLAN: 1. Discontinue PREVENA 2. Discontinue NG 3. Begin clear liquid diet Nurse practitioner note has been reviewed by physician. Signing provider agrees with the documented findings, assessment, and plan of care. Objective - Vital Signs Vital signs: Vital Signs Temp 98.4 F 06/20/18 05:39 Pulse 103 H 06/20/18 05:39 Resp 24 06/20/18 08:00 BP 146/78 06/20/18 05:39 Pulse Ox 94 L 06/20/18 05:39 Intake & Output 06/19/18 06/20/18 06/20/18 18:59 06:59 18:59 Intake Total 1408 858 Output Total 375 1000 Balance 1033 -142 Intake: IV 1040 Mvi, Adult No.4 with Vit 440 K 10 ml Trace (Conc-1Ml/ Dose) 1 ml In Amino Acid 4.25%-D10w+Lytes*E* 1,000 ml @ 55 mls/hr IV . [id number] [facility] Rx#:[id number] Potassium Chloride 10 meq 200 In Water For Injection 1 100ml.bag @ 100 mls/hr IVPB Q1H [facility] Rx#: [id number] Sodium Chloride 0.9% 1, 400 000 ml @ 50 mls/hr IV . Q20H [facility] Rx#:[id number] Intake, IV Titration 368 858 Amount Fat Emulsion 20% 250 ml @ 168 20.833 mls/hr IV DAILY [facility] Rx#:[id number] Mvi, Adult No.4 with Vit 858 K 10 ml Trace (Conc-1Ml/ Dose) 1 ml In Amino Acid 4.25%-D10w+Lytes*E* 1,000 ml @ 55 mls/hr IV . [id number] [facility] Rx#:[id number] Piperacillin-Tazobactam 3 200 .375 gm In Sodium Chloride 0.9% 100 ml @ 25 mls/hr IVPB Q8HR [facility] Rx# :[id number] Output: Gastric Drainage 125 Urine 250 1000 Other: Voiding Method Bedside Commode Bedside Commode Diaper Diaper # Voids 7 7 # Bowel Movements 0 - Labs CBC & Chem 7: 06/18/18 10:13 06/20/18 07:11 Labs: Abnormal Lab Results - Last 24 Hours (Table) 06/19/18 06/20/18 06/20/18 Range/Units 16:50 01:50 06:13 Glucose (74-99) mg/dL POC Glucose (mg/dL) 139 H 122 H 119 H (75-99) mg/dL Calcium (8.4-10.2) mg/dL Total Protein (6.3-8.2) g/dL Albumin (3.5-5.0) g/dL 06/20/18 Range/Units 07:11 Glucose 127 H (74-99) mg/dL POC Glucose (mg/dL) (75-99) mg/dL Calcium 8.2 L (8.4-10.2) mg/dL Total Protein 4.8 L (6.3-8.2) g/dL Albumin 2.4 L (3.5-5.0) g/dL Microbiology - Last 24 Hours (Table) 06/18/18 14:00 Urine Culture - Final Urine,Voided Assessment and Plan (1) Abdominal adhesions Current Visit: Yes Status: Acute Code(s): K66.0 - PERITONEAL ADHESIONS ( POSTPROCEDURAL) (POSTINFECTION) SNOMED Code(s): 683975684 (2) Diverticulosis Current Visit: Yes Status: Acute Code(s): K57.90 - DVRTCLOS OF INTEST, PART UNSP, W/O PERF OR ABSCESS W/O BLEED SNOMED Code(s): 62640225 (3) History of hysterectomy Current Visit: Yes Status: Acute Code(s): Z90.710 - ACQUIRED ABSENCE OF BOTH CERVIX AND UTERUS SNOMED Code(s): 571540938 (4) Abdominal pain Current Visit: Yes Status: Acute Code(s): R10.9 - UNSPECIFIED ABDOMINAL PAIN SNOMED Code(s): 62782656 (5) SBO (small bowel obstruction) Current Visit: Yes Status: Acute Code(s): K56.609 - UNSP INTESTNL OBST, UNSP TO PARTIAL VERSUS COMPLETE OBST SNOMED Code(s): 846283758
[2018-06-20 17:54] LABS: Glucose,Whole Blood 162 mg/dL (75-99)
[2018-06-20] MEDS: MVI, ADULT NO.4 WITH VIT K 10 ML, TRACE (CONC-1ML/DOSE) 1 ML, POTASSIUM CHLORIDE 40 MEQ... IV SCH ×4 (20:45)
[2018-06-21 00:39] LABS: Glucose,Whole Blood 141 mg/dL (75-99)
[2018-06-21] MEDS: ACETAMINOPHEN TAB 500 MG TAB PO PRN (02:40)
[2018-06-21] MEDS: SODIUM CHLORIDE 0.9% 1,000 ML IV SCH (03:47)
[2018-06-21 05:37] LABS: Glucose,Whole Blood 127 mg/dL (75-99)
[2018-06-21] MEDS: METOCLOPRAMIDE 5 MG/ML 2 ML VIAL IVP SCH ×3 (06:03→17:26)
--- NOTE | 2018-06-21 07:52 | PN ---
PROGRESS NOTE DATE OF SERVICE: 06/20/2018 PRESENTING COMPLAINT: Bowel surgery. INTERVAL HISTORY: This patient presented with small-bowel obstruction, status post surgery. NG tube remains in place. Passed some flatus. Patient did walk in the hallway. Patient's family is present at the bedside. No abdominal pain. REVIEW OF SYSTEMS: Done for constitutional, cardiovascular, GI, pulmonary; relevant findings as above. CURRENT MEDICATIONS: Reviewed that include Catapres patch, TPN and lipids, IV Zosyn. PHYSICAL EXAMINATION: Temperature 99.2, pulse 101, respirations 16, blood pressure 150/76, pulse ox 93% on room air. GENERAL APPEARANCE: Sitting up on a chair, awake. EYES: Pupils equal, conjunctivae are normal. HEENT: NG tube in place. RESPIRATORY: Effort normal. LUNGS: Decreased breath sounds. CARDIOVASCULAR: First and second sounds are normal, no edema. ABDOMEN: Soft. Minimal tenderness. Wound VAC in place. Bowel sounds are present. PSYCHIATRY: Alert and oriented x3. Mood and affect is normal. INVESTIGATIONS: Potassium 3.6, BUN and creatinine is normal. ASSESSMENT: 1. Acute small-bowel obstruction, followed by Surgery. NG tube remains in place. 2. Gastroesophageal reflux disease. 3. Essential hypertension. 4. Primary osteoarthritis, especially in the hands. 5. Chronic severe colonic diverticulosis. 6. Hypoalbuminemia, probably an acute phase reactant. 7. Patient is getting TPN lipid supplementation. PLAN: Continue current medication and treatment plan. NG tube may be clamped if okay Surgery. Will let them make the final determination. Care was discussed at length with the patient and family at the bedside. Patient did have a chest ultrasound yesterday that showed some pleural effusion. Per Pulmonary, no further need for any intervention in view of the pleural effusion. Will see how the patient fares. MMODL / IJN: [id number] /
[2018-06-21] MEDS: PANTOPRAZOLE 40 MG/10 ML VIAL IVP SCH ×2 (08:09→21:11)
[2018-06-21] MEDS: ENOXAPARIN 40 MG/0.4 ML SYRINGE SQ SCH (08:09)
[2018-06-21] MEDS: PIPERACILLIN-TAZOBACTAM 3.375 GM in SODIUM CHLORIDE 0.9% 100 ML IVPB SCH ×2 (08:09→15:25)
[2018-06-21] MEDS: FAT EMULSION 20% 250 ML IV SCH (08:09)
[2018-06-21] MEDS: IPRATROPIUM-ALBUTEROL 3 ML NEB INHALATION SCH ×4 (08:29→21:32)
--- NOTE | 2018-06-21 08:38 | XR ---
EXAMINATION TYPE: XR chest 2V DATE OF EXAM: 06/21/2018 COMPARISON: Prior chest x-ray 06/18/2018 HISTORY: Left pleural effusion TECHNIQUE: Frontal and lateral views of the chest are obtained. FINDINGS: Patient is rotated. Left-sided PICC line is present, distal tip at the level of the cavoat rial junction. No evident pneumothorax. There is blunting of the left costophrenic angle. Heart size may be accentuated by rotation. Left hemidiaphragm somewhat elevated. Question some blunting of the r ight costophrenic angle as well. NG tube has been removed. IMPRESSION: Small left and possibly right pleural effusion and associated atelectasis.
[2018-06-21 09:47] LABS: Anion Gap 6 mmol/L; Blood Urea Nitrogen 15 mg/dL (7-17); Calcium 8.7 mg/dL (8.4-10.2); Carbon Dioxide 28 mmol/L (22-30); Chloride 105 mmol/L (98-107); Glucose 111 mg/dL (74-99); Magnesium 2.2 mg/dL (1.6-2.3); Potassium 4.2 mmol/L (3.5-5.1); Sodium 139 mmol/L (137-145); Triglycerides 125 mg/dL (<150)
[2018-06-21 11:28] LABS: Glucose,Whole Blood 119 mg/dL (75-99)
--- NOTE | 2018-06-21 11:32 | P.PN ---
Subjective Progress Note Date: 06/21/18 CHIEF COMPLAINT: Abdominal pain HISTORY OF PRESENT ILLNESS: Patient seen and examined at bedside. Patient underwent small bowel resection secondary to closed loop obstruction with bowel ischemia. Patient is passing flatus and had two bowel movements. She is tolerating clear liquid diet. PHYSICAL EXAM: VITAL SIGNS: Currently stable. GENERAL: Well-developed in no acute distress. HEENT: NG tube to LIS. No sclera icterus. Extraocular movements grossly intact. Moist buccal mucosa. Head is atraumatic, normocephalic. Hears conversational speech. No nasal drainage. NECK: Supple without lymphadenopathy. CHEST: Non-labored respirations and equal bilateral excursions. CARDIOVASCULAR: Regular rate with regular rhythm. Palpable 2+ radial pulses. ABDOMEN: Soft. Nondistended. Bowel sounds present x 4 quadrants. MUSCULOSKELETAL: No clubbing, cyanosis or edema. NEUROLOGIC: No focal or lateralizing signs. Cranial nerves II through XII grossly intact. PSYCH: Appropriate affect. Alert and oriented to person, place and time. SKIN: Well perfused. Good skin turgor. ASSESSMENT: 1. Small bowel obstruction secondary to closed loop obstruction with bowel ischemia, status post lysis of adhesions and small bowel resection 2. Postoperative ileus, resolved PLAN: 1. Advance diet to full liquid 2. Finish TPN bag today, then DC as long as patient is tolerating full liquid diet 3. Patient may shower 4. Increase activity as tolerated Nurse practitioner note has been reviewed by physician. Signing provider agrees with the documented findings, assessment, and plan of care. Objective - Vital Signs Vital signs: Vital Signs Temp 98.4 F 06/21/18 05:46 Pulse 96 06/21/18 08:41 Resp 18 06/21/18 08:00 BP 151/72 06/21/18 05:46 Pulse Ox 93 L 06/21/18 05:46 Intake & Output 06/20/18 06/21/18 06/21/18 18:59 06:59 18:59 Output Total 1200 Balance -1200 Weight 58.513 kg Output: Urine 1200 Other: Voiding Method Bedside Commode Bedside Commode Bedside Commode # Voids 9 4 # Bowel Movements 0 1 - Labs CBC & Chem 7: 06/18/18 10:13 06/21/18 08:59 Labs: Abnormal Lab Results - Last 24 Hours (Table) 06/20/18 06/20/18 06/21/18 Range/Units 12:08 17:43 00:21 Glucose (74-99) mg/dL POC Glucose (mg/dL) 112 H 162 H 141 H (75-99) mg/dL 06/21/18 06/21/18 06/21/18 Range/Units 05:35 08:59 11:24 Glucose 111 H (74-99) mg/dL POC Glucose (mg/dL) 127 H 119 H (75-99) mg/dL Assessment and Plan (1) Abdominal adhesions Current Visit: Yes Status: Acute Code(s): K66.0 - PERITONEAL ADHESIONS ( POSTPROCEDURAL) (POSTINFECTION) SNOMED Code(s): 289761670 (2) Diverticulosis Current Visit: Yes Status: Acute Code(s): K57.90 - DVRTCLOS OF INTEST, PART UNSP, W/O PERF OR ABSCESS W/O BLEED SNOMED Code(s): 45587993 (3) History of hysterectomy Current Visit: Yes Status: Acute Code(s): Z90.710 - ACQUIRED ABSENCE OF BOTH CERVIX AND UTERUS SNOMED Code(s): 536073294 (4) Abdominal pain Current Visit: Yes Status: Acute Code(s): R10.9 - UNSPECIFIED ABDOMINAL PAIN SNOMED Code(s): 62357408 (5) SBO (small bowel obstruction) Current Visit: Yes Status: Acute Code(s): K56.609 - UNSP INTESTNL OBST, UNSP TO PARTIAL VERSUS COMPLETE OBST SNOMED Code(s): 873303419
--- NOTE | 2018-06-21 12:27 | P.PN ---
Subjective Progress Note Date: 06/21/18 HPI: This is an 87-year-old female patient being seen examined and evaluated today while covering for Dr. Raphael. This patient does have a past medical history of GERD, hypertension, osteoarthritis, diverticulosis. The patient came into the hospital and was found to have a small bowel obstruction. The patient did go for a bowel resection and also developed a postop ileus. She currently has an NG tube that is hooked to suction. She has a PICC line and is receiving TPN and lipids. Patient also has a wound VAC in place. She did have a chest x-ray which did show cardiomegaly and persistent small left effusion with infiltrate/atelectasis. Patient then underwent an ultrasound of the chest which did reveal a left 3.6 and a meter effusion which is too small to undergo a thoracentesis at this point. The patient states her breathing has improved in the last day. She denies any cough or congestion. Interval history: 06/21/18- patient is being seen examined and evaluated today on rounds, we'll covering for Dr. Raphael. Patient is resting up in bed on room air. Her NG tube has been removed. Her breathing is much better per the patient. She denies any cough or congestion. Chest x-ray is reviewed and stable. Her diet is being advanced per surgical services. So far the patient is tolerating her full liquid diet well. Family is at bedside updated on plan of care. Afebrile no further complaints Objective - Vital Signs Vital signs: Vital Signs Temp 98.4 F 06/21/18 05:46 Pulse 96 06/21/18 08:41 Resp 18 06/21/18 08:00 BP 151/72 06/21/18 05:46 Pulse Ox 93 L 06/21/18 05:46 Intake & Output 06/20/18 06/21/18 06/21/18 18:59 06:59 18:59 Output Total 1200 Balance -1200 Weight 58.513 kg Output: Urine 1200 Other: Voiding Method Bedside Commode Bedside Commode Bedside Commode # Voids 9 4 # Bowel Movements 0 1 - Exam GENERAL EXAM: Alert, , comfortable in no apparent distress. HEAD: Normocephalic. EYES: Normal reaction of pupils, equal size. NOSE: Clear with pink turbinates. NG tube in place THROAT: No erythema or exudates. NECK: No masses, no JVD. CHEST: No chest wall deformity. LUNGS: Equal air entry with no crackles, wheeze, rhonchi or dullness. Diminished bases CVS: S1 and S2 normal with no audible mumurs, regular rhythm. ABDOMEN: No hepatosplenomegaly, normal bowel sounds, no guarding or rigidity. Wound VAC in place EXTREMITIES: No edema noted, pedal pulses palpable. CENTRAL NERVOUS SYSTEM: No focal deficits, tone is normal in all 4 extremities. - Labs CBC & Chem 7: 06/18/18 10:13 06/21/18 08:59 Labs: Abnormal Lab Results - Last 24 Hours (Table) 06/20/18 06/21/18 06/21/18 Range/Units 17:43 00:21 05:35 Glucose (74-99) mg/dL POC Glucose (mg/dL) 162 H 141 H 127 H (75-99) mg/dL 06/21/18 06/21/18 Range/Units 08:59 11:24 Glucose 111 H (74-99) mg/dL POC Glucose (mg/dL) 119 H (75-99) mg/dL Assessment and Plan Assessment: Assessment Small left-sided effusion Small bowel obstruction Postoperative ileus Acute renal failure with hypovolemic and hyponatremia GI loss Chronic severe chronic diverticulosis GERD Plan Pleural effusion too small for thoracentesis at this time Medications have been reviewed and will be continued as ordered. Continue with pulmonary hygiene, coughing and deep breathing exercises, and supportive care. Supplemental oxygen to maintain oxygen saturations of 92% or better. Continue nebulizer treatments. Continue with incentive spirometer GI and DVT prophylaxis. We will continue to monitor labs/results and adjust treatment as necessary. Further recommendations pending. I, the signing physician performed an examination of the patient, discussed and directed their management with the nurse practitioner. I have reviewed the nurse practitioner's note and agree with the documented findings, orders and plan of care. Nurse practitioner acting as a scribe for the signing physician.
[2018-06-21] MEDS: MVI, ADULT NO.4 WITH VIT K 10 ML, TRACE (CONC-1ML/DOSE) 1 ML, POTASSIUM CHLORIDE 40 MEQ... IV SCH ×4 (15:18)
[2018-06-21 17:41] LABS: Glucose,Whole Blood 112 mg/dL (75-99)
[2018-06-21] MEDS: MELATONIN 5 MG TABLET PO PRN (21:08)
[2018-06-21] MEDS: LOSARTAN 50 MG TAB PO SCH (21:08)
[2018-06-21] MEDS: METOPROLOL TARTRATE 25 MG TAB PO SCH (21:19)
--- NOTE | 2018-06-21 22:37 | PN ---
PROGRESS NOTE DATE OF SERVICE: 06/21/2018. PRESENTING COMPLAINT: Bowel surgery. INTERVAL HISTORY: Patient with small bowel obstruction status post surgery. NG tube was taken out. Started on clear liquids today. Had some bowel movement. Patient also of bed. The patient is really happy. Daughter at the bedside. No abdominal pain. No nausea, vomiting. REVIEW OF SYSTEMS: Done for constitutional, cardiovascular, GI, pulmonary and relevant findings as above. CURRENT MEDICATIONS: Include Catapres patch, TPN, lipids discontinued, IV Zosyn. EXAMINATION: VITAL SIGNS: Temp 97.6, pulse 95, respirations 16, blood pressure 125/70, pulse ox 99% on room air. GENERAL APPEARANCE: Propped up in bed. Comfortable, EYES: Pupils equal. Conjunctivae normal. NECK: JVD not raised. Mass not palpable. RESPIRATORY: Effort normal. LUNGS: Improved air entry. CARDIOVASCULAR: 1st and 2nd sounds no edema. ABDOMEN: Soft, nontender. Wound VAC in place. Bowel sounds are present. PSYCHIATRY: Alert and oriented x3. Mood and affect normal. INVESTIGATIONS: Potassium 4.2, BUN and creatinine is normal. ASSESSMENT: 1. Acute small bowel obstruction status post surgery. NG tube is now taken out. 2. Gastroesophageal reflux disease. 3. Essential hypertension. 4. Primary osteoarthritis especially of the hands. 5. Chronic severe colonic diverticulosis. 6. Hypoalbuminemia, acute phase reactant. PLAN: The patient is overall doing much better. We will DC the Catapres patch, start the patient on Lopressor 25 mg twice a day. Also DC the IV Protonix. Also we will discontinue patient's IV Zosyn, switch to p.o. Augmentin. Care was discussed with the patient and daughter at the bedside. Diet is being advanced per Surgery. Doing much better. MMODL / IJN: [id number] /
[2018-06-22] MEDS: IPRATROPIUM-ALBUTEROL 3 ML NEB INHALATION SCH ×2 (07:24→11:18)
[2018-06-22 07:39] VITALS: RESP 16
[2018-06-22] MEDS: AMOXIC-POT CLAV 875-125MG 1 EACH TAB PO SCH ×2 (08:29→22:07)
[2018-06-22] MEDS: ENOXAPARIN 40 MG/0.4 ML SYRINGE SQ SCH (08:29)
[2018-06-22] MEDS: METOPROLOL TARTRATE 25 MG TAB PO SCH ×2 (08:29→22:08)
[2018-06-22 09:04] LABS: Anion Gap 9 mmol/L; Blood Urea Nitrogen 11 mg/dL (7-17); Calcium 9.3 mg/dL (8.4-10.2); Carbon Dioxide 27 mmol/L (22-30); Chloride 105 mmol/L (98-107); Glucose 87 mg/dL (74-99); Magnesium 2.1 mg/dL (1.6-2.3); Phosphorus 3.8 mg/dL (2.5-4.5); Potassium 4.3 mmol/L (3.5-5.1); Sodium 141 mmol/L (137-145)
--- NOTE | 2018-06-22 12:12 | P.PN ---
Subjective Progress Note Date: 06/22/18 HPI: This is an 87-year-old female patient being seen examined and evaluated today while covering for Dr. Raphael. This patient does have a past medical history of GERD, hypertension, osteoarthritis, diverticulosis. The patient came into the hospital and was found to have a small bowel obstruction. The patient did go for a bowel resection and also developed a postop ileus. She currently has an NG tube that is hooked to suction. She has a PICC line and is receiving TPN and lipids. Patient also has a wound VAC in place. She did have a chest x-ray which did show cardiomegaly and persistent small left effusion with infiltrate/atelectasis. Patient then underwent an ultrasound of the chest which did reveal a left 3.6 and a meter effusion which is too small to undergo a thoracentesis at this point. The patient states her breathing has improved in the last day. She denies any cough or congestion. Interval history: 06/21/18- patient is being seen examined and evaluated today on rounds, we'll covering for Dr. Raphael. Patient is resting up in bed on room air. Her NG tube has been removed. Her breathing is much better per the patient. She denies any cough or congestion. Chest x-ray is reviewed and stable. Her diet is being advanced per surgical services. So far the patient is tolerating her full liquid diet well. Family is at bedside updated on plan of care. Afebrile no further complaints 06/22/18- patient is being seen examined and evaluated today on rounds while covering for Dr. Raphael. The patient is up ambulating in the hallway without any difficulty. Family is at her bedside. NG tube and wound VAC were discontinued 2 days ago. She is feeling much better. She is advancing her diet without difficulty. She is looking forward to discharge. All labs and reports reviewed. Objective - Vital Signs Vital signs: Vital Signs Temp 98.2 F 06/22/18 07:15 Pulse 93 06/22/18 07:15 Resp 16 06/22/18 07:15 BP 168/77 06/22/18 07:15 Pulse Ox 96 06/22/18 07:15 Intake & Output 06/21/18 06/22/18 06/22/18 18:59 06:59 18:59 Intake Total 1020.25 Balance 1020.25 Weight 58.513 kg Intake: Intake, IV Titration 1020.25 Amount Mvi, Adult No.4 with Vit 1020.25 K 10 ml Trace (Conc-1Ml/ Dose) 1 ml Potassium Chloride 40 meq In Amino Acid 4.25%-D10w+Lytes*E* 1,000 ml @ 55 mls/hr IV . [id number] [facility] Rx#:[id number] Other: Voiding Method Bedside Commode Bedside Commode # Voids 7 4 # Bowel Movements 2 3 - Exam GENERAL EXAM: Alert, active, comfortable in no apparent distress. HEAD: Normocephalic. EYES: Normal reaction of pupils, equal size. NOSE: Clear with pink turbinates. THROAT: No erythema or exudates. NECK: No masses, no JVD. CHEST: No chest wall deformity. LUNGS: Equal air entry with no crackles, wheeze, rhonchi or dullness. Diminished bases CVS: S1 and S2 normal with no audible mumurs, regular rhythm. ABDOMEN: No hepatosplenomegaly, normal bowel sounds, no guarding or rigidity. EXTREMITIES: No edema noted, pedal pulses palpable. CENTRAL NERVOUS SYSTEM: No focal deficits, tone is normal in all 4 extremities. - Labs CBC & Chem 7: 06/18/18 10:13 06/22/18 08:11 Labs: Abnormal Lab Results - Last 24 Hours (Table) 06/21/18 Range/Units 17:38 POC Glucose (mg/dL) 112 H (75-99) mg/dL Assessment and Plan Assessment: Assessment Small left-sided effusion Small bowel obstruction Postoperative ileus Acute renal failure with hypovolemic and hyponatremia GI loss Chronic severe chronic diverticulosis GERD Plan is cleared for discharge from a pulmonary standpoint Pleural effusion too small for thoracentesis at this time Medications have been reviewed and will be continued as ordered. Continue with pulmonary hygiene, coughing and deep breathing exercises, and supportive care. Supplemental oxygen to maintain oxygen saturations of 92% or better. Continue nebulizer treatments. Continue with incentive spirometer Continue to increase activity as tolerated GI and DVT prophylaxis. We will continue to monitor labs/results and adjust treatment as necessary. Further recommendations pending. I, the signing physician performed an examination of the patient, discussed and directed their management with the nurse practitioner. I have reviewed the nurse practitioner's note and agree with the documented findings, orders and plan of care. Nurse practitioner acting as a scribe for the signing physician. Please note we are covering for Dr. Raphael
--- NOTE | 2018-06-22 21:05 | PN ---
PROGRESS NOTE DATE OF SERVICE: 06/22/2018 PRESENTING COMPLAINT: Tired. INTERVAL HISTORY: Patient is status post small bowel obstruction with surgery. Did tolerate a soft diet. Had a bowel movement. No abdominal pain. Has been out of bed. Overall feeling much better. Keen to go home. REVIEW OF SYSTEMS: Done for constitutional, cardiovascular, GI, pulmonary; relevant findings as above. CURRENT MEDICATIONS: Reviewed. PHYSICAL EXAMINATION: VITAL SIGNS: Temperature 98.6, pulse 85, respirations 16, blood pressure 128/78, pulse ox 95% on room air. GENERAL APPEARANCE: Lying in bed, comfortable, smiling. EYES: Pupils are equal. Conjunctivae normal. NECK: JVD not raised. Mass not palpable. RESPIRATORY: Effort normal. LUNGS are poor air entry. CARDIOVASCULAR: 1st and 2nd sounds. No edema. ABDOMEN: Soft, nontender. Liver and spleen not palpable. Dressing in place. PSYCHIATRY: Alert and oriented x3. Mood and affect normal. INVESTIGATIONS: Potassium 4.3, BUN and creatinine is normal. ASSESSMENT: 1. Acute small-bowel obstruction status post surgery, doing well, tolerating a diet had a bowel movement. 2. Gastroesophageal reflux disease. 3. Essential hypertension. 4. Primary osteoarthritis especially of the hands. 5. Chronic severe colonic diverticulosis. 6. Hypoalbuminemia, acute phase reactant. PLAN: Nurse informed me per Dr. Macedo, the patient is cleared to go, but the patient's son may not be available to moss picker the patient and hence the patient wishes to get discharged tomorrow. We will arrange for the same. MMODL / IJN: [id number] /
[2018-06-22] MEDS: LOSARTAN 50 MG TAB PO SCH (22:07)
[2018-06-22] MEDS: MELATONIN 5 MG TABLET PO PRN (22:16)
--- NOTE | 2018-06-23 06:59 | P.PN ---
Progress Note - Text Progress Note Date: 06/22/18 The patient is resting comfortably in her bed. She's had several bowel movements. She has some minimal incisional pain. On exam her vital signs are stable. Her abdomen soft. Resolved ileus after small bowel resection for closed loop obstruction and ischemic bowel. Patient will mostly be discharged home tomorrow.
[2018-06-23] MEDS: AMOXIC-POT CLAV 875-125MG 1 EACH TAB PO SCH (08:44)
[2018-06-23] MEDS: ENOXAPARIN 40 MG/0.4 ML SYRINGE SQ SCH (08:44)
[2018-06-23] MEDS: METOPROLOL TARTRATE 25 MG TAB PO SCH (08:44)
[2018-06-23 10:14] LABS: Anion Gap 9 mmol/L; Blood Urea Nitrogen 11 mg/dL (7-17); Calcium 9.3 mg/dL (8.4-10.2); Carbon Dioxide 27 mmol/L (22-30); Chloride 104 mmol/L (98-107); Glucose 137 mg/dL (74-99); Phosphorus 3.6 mg/dL (2.5-4.5); Sodium 140 mmol/L (137-145)
--- NOTE | 2018-06-23 11:11 | P.PN ---
Subjective Progress Note Date: 06/23/18 HPI: This is an 87-year-old female patient being seen examined and evaluated today while covering for Dr. Raphael. This patient does have a past medical history of GERD, hypertension, osteoarthritis, diverticulosis. The patient came into the hospital and was found to have a small bowel obstruction. The patient did go for a bowel resection and also developed a postop ileus. She currently has an NG tube that is hooked to suction. She has a PICC line and is receiving TPN and lipids. Patient also has a wound VAC in place. She did have a chest x-ray which did show cardiomegaly and persistent small left effusion with infiltrate/atelectasis. Patient then underwent an ultrasound of the chest which did reveal a left 3.6 and a meter effusion which is too small to undergo a thoracentesis at this point. The patient states her breathing has improved in the last day. She denies any cough or congestion. Interval history: 06/21/18- patient is being seen examined and evaluated today on rounds, we'll covering for Dr. Raphael. Patient is resting up in bed on room air. Her NG tube has been removed. Her breathing is much better per the patient. She denies any cough or congestion. Chest x-ray is reviewed and stable. Her diet is being advanced per surgical services. So far the patient is tolerating her full liquid diet well. Family is at bedside updated on plan of care. Afebrile no further complaints 06/22/18- patient is being seen examined and evaluated today on rounds while covering for Dr. Raphael. The patient is up ambulating in the hallway without any difficulty. Family is at her bedside. NG tube and wound VAC were discontinued 2 days ago. She is feeling much better. She is advancing her diet without difficulty. She is looking forward to discharge. All labs and reports reviewed. 06/23/18- patient is being seen examined and evaluated today on rounds while covering for Dr. Raphael. She is resting up in bed on room air. She has been ambulating frequently in the hallway. She is potentially being discharged today. She feels much better. Family is at bedside updated on plan of care. Continues to be hemodynamically stable. All labs and reports reviewed. Objective - Vital Signs Vital signs: Vital Signs Temp 98.7 F 06/23/18 04:17 Pulse 79 06/23/18 04:17 Resp 16 06/23/18 08:00 BP 148/75 06/23/18 04:17 Pulse Ox 93 L 06/23/18 04:17 Intake & Output 06/22/18 06/23/18 06/23/18 18:59 06:59 18:59 Intake Total 1200 Balance 1200 Weight 58.513 kg Intake: Oral 1200 Other: Voiding Method Bedside Commode Bedside Commode # Voids 1 1 # Bowel Movements 2 - Exam GENERAL EXAM: Alert, active, comfortable in no apparent distress. HEAD: Normocephalic. EYES: Normal reaction of pupils, equal size. NOSE: Clear with pink turbinates. THROAT: No erythema or exudates. NECK: No masses, no JVD. CHEST: No chest wall deformity. LUNGS: Equal air entry with no crackles, wheeze, rhonchi or dullness. Diminished bases CVS: S1 and S2 normal with no audible mumurs, regular rhythm. ABDOMEN: No hepatosplenomegaly, normal bowel sounds, no guarding or rigidity. EXTREMITIES: No edema noted, pedal pulses palpable. CENTRAL NERVOUS SYSTEM: No focal deficits, tone is normal in all 4 extremities. - Labs CBC & Chem 7: 06/18/18 10:13 06/23/18 09:22 Labs: Abnormal Lab Results - Last 24 Hours (Table) 06/23/18 Range/Units 09:22 Glucose 137 H (74-99) mg/dL Assessment and Plan Assessment: Assessment Small left-sided effusion Small bowel obstruction Postoperative ileus Acute renal failure with hypovolemic and hyponatremia GI loss Chronic severe chronic diverticulosis GERD Plan Patient is cleared for discharge from a pulmonary standpoint Pleural effusion too small for thoracentesis at this time Medications have been reviewed and will be continued as ordered. Continue with pulmonary hygiene, coughing and deep breathing exercises, and supportive care. Supplemental oxygen to maintain oxygen saturations of 92% or better. Continue nebulizer treatments. Continue with incentive spirometer Continue to increase activity as tolerated GI and DVT prophylaxis. We will continue to monitor labs/results and adjust treatment as necessary. Further recommendations pending. I, the signing physician performed an examination of the patient, discussed and directed their management with the nurse practitioner. I have reviewed the nurse practitioner's note and agree with the documented findings, orders and plan of care. Nurse practitioner acting as a scribe for the signing physician. Please note we are covering for Dr. Raphael
--- NOTE | 2018-06-23 12:06 | P.PN ---
Progress Note - Text Progress Note Date: 06/23/18 The patient's resting comfortably in her bed. She has no real complaints. She is tolerating diet. On exam her vital signs are stable. Her abdomen is soft. Incision site is clean dry and intact. Status post small bowel resection for small bowel obstruction. Patient was discharged home. She'll follow-up in one week.
[2018-06-23 14:32] VITALS: BP 118/74; PULSE 80; TEMP 98.8
--- NOTE | 2018-06-24 16:07 | DS ---
DISCHARGE SUMMARY DATE OF ADMISSION: 06/08/2018 DATE OF DISCHARGE: 06/23/2018 FINAL DIAGNOSES: 1. Acute small-bowel obstruction, followed by surgery. 2. Gastroesophageal reflux disease. 3. Essential hypertension. 4. Primary osteoarthritis especially of the hands. 5. Chronic severe colonic diverticulosis. 6. Hypoalbuminemia acute phase reactant. MMODL / IJN: [id number] /
--- NOTE | 2018-06-24 20:22 | DS ---
DISCHARGE SUMMARY DATE OF ADMISSION: 06/08/2018 DATE OF DISCHARGE: 06/23/2018 FINAL DIAGNOSES: 1. Acute small-bowel obstruction, status post surgery with partial small-bowel resection. 2. Gastroesophageal reflux disease. 3. Essential hypertension. 4. Primary osteoarthritis, especially of the hands. 5. Chronic severe colonic diverticulosis. 6. Hypoalbuminemia as an acute phase reactant. HOSPITAL COURSE: This patient presented with small-bowel obstruction, then ended up going to surgery and had a loop obstruction. Partial bowel resection was carried out with lysis of adhesions. Doing much better by the time of discharge, tolerating a diet, up and about. Dressing is on the abdominal wall. CONSULTATIONS: 1. Dr. Macedo from General Surgery. 2. Dr. Reddy from Pulmonary. PHYSICAL EXAMINATION: Temperature 98.8, pulse 80, respiration 16, blood pressure 118/74, pulse ox 95% on room air. LUNGS: Fair air entry. CARDIOVASCULAR: First and second sounds normal. ABDOMEN: Soft. Dressing in place. INVESTIGATIONS: BUN and creatinine normal. DISCHARGE MEDICATIONS: 1. Vitamin D3 5000 units p.o. daily. 2. Cozaar 100 mg p.o. at bedtime. 3. Augmentin 875 one tablet p.o. q.12; 6 tablets. 4. Colace 100 mg p.o. b.i.d. 5. [place] 7.5 one tablet q.4 p.r.n. per Surgery. 6. Lopressor 25 mg p.o. b.i.d. Follow up with Dr. Herron on 06/30/2018. Follow up with Dr. Henri Raphael on 06/30/2018. Follow up with Dr. Macedo on 06/29/2018. [facility] to follow. Patient's dressing is to be kept until followup with Dr. Macedo. Diet soft, bland. MMODL / IJN: [id number] /
--- NOTE | 2018-06-28 07:21 | PN ---
PROGRESS NOTE CORRECTION TO PROGRESS: The patient's progress note dictated on 06/11/2018 at 2116. Date transcribed on 06/11/2018 at 20:35. The correct date of service is 06/11/2018. MMODL / IJN: [id number] /
== END 2018-06-23 16:33 | disposition home health service (06) | DRG 329 ==
LOC: EC 14:42 → 4MS4W 20:46
PROVIDERS: ADMIT Hospitalist; ATTEND Hospitalist
PROC: 0DB80ZZ Excision of Small Intestine, Open Approach (ICD-10-PCS; principal; 2018-06-12 12:00)
PROC: 02HV33Z Insertion of Infusion Device into Superior Vena Cava, Percutaneous Approach (ICD-10-PCS; 2018-06-15)
DX: K56.601 Complete intestinal obstruction, unspecified as to cause (principal); K55.019 Acute (reversible) ischemia of small intestine, extent unspecified; N17.9 Acute kidney failure, unspecified; E87.1 Hypo-osmolality and hyponatremia; J90 Pleural effusion, not elsewhere classified; J98.11 Atelectasis; K56.52 Intestinal adhesions [bands] with complete obstruction; E86.1 Hypovolemia; K56.7 Ileus, unspecified; M19.042 Primary osteoarthritis, left hand; M19.041 Primary osteoarthritis, right hand; M81.0 Age-related osteoporosis without current pathological fracture; Z85.828 Personal history of other malignant neoplasm of skin; Z90.710 Acquired absence of both cervix and uterus; E87.6 Hypokalemia; E88.09 Other disorders of plasma-protein metabolism, not elsewhere classified; I10 Essential (primary) hypertension; K21.9 Gastro-esophageal reflux disease without esophagitis; Z88.2 Allergy status to sulfonamides; H26.9 Unspecified cataract; Z87.01 Personal history of pneumonia (recurrent); Z87.440 Personal history of urinary (tract) infections; K57.90 Diverticulosis of intestine, part unspecified, without perforation or abscess without bleeding; Z86.010 Personal history of colon polyps; Z60.2 Problems related to living alone
CPT/HCPCS: 36415; 36573; 71046; 74018; 74019; 74177; 76604; 80048; 80053; 81001; 81003; 82040; 82150; 82330; 83690; 83735; 84100; 84478; 84484; 85025; 85027; 85610; 85730; 87086; 88307; 94640; 96361; 96374; 96375; 99285

== ENCOUNTER → 2018-07-12 | Outpatient (CLI) | payer MEDICARE ==
--- NOTE | 2018-07-13 07:43 | US ---
EXAMINATION TYPE: US thyroid st tissue head/neck DATE OF EXAM: 07/12/2018 COMPARISON: NONE CLINICAL HISTORY: R79.89 ABN FINDINGS OF BLOOD CHEMISTRY. GLAND SIZE: Right Lobe: 5.4 x 2.1 x 1.7 cm Overall Parenchyma: heterogenous Left Lobe: 3.7 x 1.9 x 1.6 cm Overall Parenchyma: heterogeneous Isthmus Thickness: 0.2 cm NODULES RIGHT: # of nodules measured on right: 1 1. 2.2 x 1.8 x 2.2 cm isoechoic solid nodule at the upper pole with well-defined margins. This nod ule is wider than tall and shows intranodular vascularity. No Prior LEFT: # of nodules measured on left: 1 1. 0.7 X 0.5 x 0.6 cm isoechoic mixed nodule at the lower pole with well-defined margins. This nod ule is wider than tall. No Prior ISTHMUS: # of nodules measured in the isthmus: 0 Bilateral neck scanned, no evidence of lymphadenopathy. IMPRESSION: Thyroid tissue is heterogeneous and there is enlargement of the right lobe correlate for thyroiditis. Dominant 2.2 cm right thyroid nodule noted.
== END | disposition home or self-care (01) ==
LOC: RADUSWWP 15:21
PROVIDERS: ATTEND Family Medicine
DX: E04.1 Nontoxic single thyroid nodule (principal); R93.89 Abnormal findings on diagnostic imaging of other specified body structures
CPT/HCPCS: 76536

== ENCOUNTER 2018-08-25 13:50 | Emergency (ER) | payer MEDICARE ==
[2018-08-25 14:02] VITALS: BP 145/79; PULSE 74; RESP 18; TEMP 97.8
[2018-08-25 15:01] LABS: Basophils % (A) 1 %; Eosinophils # (A) 0.2 k/uL (0-0.7); Eosinophils % (A) 3 %; HCT 45.8 % (34.0-46.0); HGB 14.3 gm/dL (11.4-16.0); Hypochromasia Slight; Lymphocytes # (A) 2.2 k/uL (1.0-4.8); Lymphocytes % (A) 37 %; MCH 29.7 pg (25.0-35.0); MCHC 31.2 g/dL (31.0-37.0); MCV 95.2 fL (80.0-100.0); Monocytes # (A) 0.3 k/uL (0-1.0); Monocytes % (A) 5 %; Neutrophils # (A) 3.1 k/uL (1.3-7.7); Neutrophils % (A) 54 %; Platelet Count 288 k/uL (150-450); RBC 4.81 m/uL (3.80-5.40); RDW 13.3 % (11.5-15.5); WBC 5.9 k/uL (3.8-10.6)
[2018-08-25 15:14] LABS: Albumin 4.7 g/dL (3.5-5.0); Calcium 10.2 mg/dL (8.4-10.2); Total Bilirubin 0.5 mg/dL (0.2-1.3); Total Protein 8.2 g/dL (6.3-8.2)
--- NOTE | 2018-08-25 15:15 | XR ---
Abdomen HISTORY: Constipation Frontal view the abdomen correlated to CT scan same date Calcified granuloma present in the right lower lobe injection of the right upper quadrant. Strand-lik e densities at the lung bases may reflect atelectasis or scarring. There is overlying artifact. There are air-fluid levels without bowel distention. Postop changes are noted over the region of the pelvi s. There is a mild spinal curvature present. Degenerative disc changes are present in the visualized spine. IMPRESSION: Correlate for ileus or enteritis, follow-up as indicated if bowel obstruction is suspecte d clinically.
[2018-08-25] MEDS ORDERED: DOCUSATE 283 MG/5 ML ENEMA RECTAL STA (17:00)
--- NOTE | 2018-08-25 18:23 | ED ---
Abdominal Pain HPI - General Chief Complaint: Abdominal Pain Stated Complaint: Sent over for a CT Time Seen by Provider: 08/25/18 16:59 Source: patient, RN notes reviewed, old records reviewed Mode of arrival: wheelchair Limitations: no limitations - History of Present Illness Initial Comments: 88-year-old female presents for a short stay for complaints of constipation. She denied lower abdominal pain. Seen by her PCP today for hemorrhoids. Had an outpatient CT which showed fecal impaction. Patient blood work was reviewed relative unremarkable. Patient at this and has no significant abdominal tenderness. She states she can R lessen she's had a bowel movement. - Related Data Home Medications Medication Instructions Recorded Confirmed Cholecalciferol [Vitamin D3] 5,000 unit PO DAILY 04/22/17 08/25/18 Losartan Potassium [Cozaar] 100 mg PO HS 04/22/17 08/25/18 Previous Rx's Medication Instructions Recorded Docusate [Colace] 100 mg PO BID #20 capsule 06/23/18 Metoprolol Tartrate [Lopressor] 25 mg PO BID #60 tab 06/23/18 Hydrocortisone [Anusol-Hc] 1 applic RECTAL BID #30 gm 08/25/18 Magnesium Citrate 296 ml PO ONCE #1 bottle 08/25/18 Allergies Allergy/AdvReac Type Severity Reaction Status Date / Time Sulfa (Sulfonamide Allergy Unknown Verified 08/25/18 17:59 Antibiotics) Childhood Review of Systems ROS Statement: Those systems with pertinent positive or pertinent negative responses have been documented in the HPI. ROS Other: All systems not noted in ROS Statement are negative. Past Medical History Past Medical History: Cancer, GERD/Reflux, Hypertension, Osteoarthritis (OA), Pneumonia Additional Past Medical History / Comment(s): hemorrhoids, uti's, hx squamous cell cancer perineum lt side, bronchitis,diverticulosis, cataract, had pne vaccine in past 5 years History of Any Multi-Drug Resistant Organisms: None Reported Past Surgical History: Hysterectomy Additional Past Surgical History / Comment(s): hemorrhoid surg , bladder suspension, egd/colonoscopy/polypectomy(benign),excision squamous cell skin cancer. Past Anesthesia/Blood Transfusion Reactions: No Reported Reaction Additional Past Anesthesia/Blood Transfusion Reaction / Comment(s): pt stated she has never received any blood transfusions Past Psychological History: No Psychological Hx Reported Smoking Status: Never smoker Past Alcohol Use History: None Reported Past Drug Use History: None Reported - Past Family History Mother History Unknown: Yes Father History Unknown: Yes Sister(s) Family Medical History: Cancer Additional Family Medical History / Comment(s): unk type General Exam - General Exam Comments Initial Comments: 88-year-old female. Alert and oriented. No significant distress. Limitations: no limitations General appearance: alert, in no apparent distress Head exam: Present: atraumatic, normocephalic, normal inspection Eye exam: Present: normal appearance, PERRL, EOMI. Absent: scleral icterus, conjunctival injection, periorbital swelling ENT exam: Present: normal exam, mucous membranes moist Neck exam: Present: normal inspection. Absent: tenderness, meningismus, lymphadenopathy Respiratory exam: Present: normal lung sounds bilaterally. Absent: respiratory distress, wheezes, rales, rhonchi, stridor Cardiovascular Exam: Present: regular rate, normal rhythm, normal heart sounds. Absent: systolic murmur, diastolic murmur, rubs, gallop, clicks GI/Abdominal exam: Present: soft Rectal exam: Present: fecal impaction. Absent: normal inspection, normal rectal tone, decreased rectal tone, heme (-) stool, mass, tenderness, other Extremities exam: Present: normal inspection, full ROM, normal capillary refill. Absent: tenderness, pedal edema, joint swelling, calf tenderness Back exam: Present: normal inspection Neurological exam: Present: alert, oriented X3, CN II-XII intact Psychiatric exam: Present: normal affect, normal mood Skin exam: Present: warm, dry, intact, normal color. Absent: rash Course Vital Signs 08/25/18 13:56 Temperature 97.8 F Pulse Rate 74 Respiratory 18 Rate Blood Pressure 145/79 O2 Sat by Pulse 97 Oximetry Medical Decision Making - Medical Decision Making Is an 88-year-old female present to return today for constipation and outpatient CT showing fecal impaction. She is disimpacted after receiving Therevac enema. She then had significant bowel movement afterwards. She feels better at this time. Wants to be discharged home. Discharged with magnesium citrate to use out patiently as well as a Zofran to place over hemorrhoids. Discussed the importance of using MiraLAX daily. All questions answered return parameters were discussed. - Lab Data Result diagrams: 08/25/18 14:50 08/25/18 14:50 Lab Results 08/25/18 08/25/18 Range/Units 14:50 14:50 WBC 5.9 (3.8-10.6) k/uL RBC 4.81 (3.80-5.40) m/uL Hgb 14.3 (11.4-16.0) gm/dL Hct 45.8 (34.0-46.0) % MCV 95.2 (80.0-100.0) fL MCH 29.7 (25.0-35.0) pg MCHC 31.2 (31.0-37.0) g/dL RDW 13.3 (11.5-15.5) % Plt Count 288 (150-450) k/uL Neutrophils % 54 % Lymphocytes % 37 % Monocytes % 5 % Eosinophils % 3 % Basophils % 1 % Neutrophils # 3.1 (1.3-7.7) k/uL Lymphocytes # 2.2 (1.0-4.8) k/uL Monocytes # 0.3 (0-1.0) k/uL Eosinophils # 0.2 (0-0.7) k/uL Basophils # 0.0 (0-0.2) k/uL Hypochromasia Slight Sodium 140 (137-145) mmol/L Potassium (3.5-5.1) mmol/L Chloride 107 (98-107) mmol/L Carbon Dioxide 24 (22-30) mmol/L Anion Gap 9 mmol/L BUN 16 (7-17) mg/dL Creatinine 0.69 (0.52-1.04) mg/dL Est GFR (CKD-EPI)AfAm 89 (>60 ml/min/1.73 sqM) Est GFR (CKD-EPI)NonAf 78 (>60 ml/min/1.73 sqM) Glucose 87 (74-99) mg/dL Calcium 10.2 (8.4-10.2) mg/dL Total Bilirubin 0.5 (0.2-1.3) mg/dL AST 22 (14-36) U/L ALT 22 (9-52) U/L Alkaline Phosphatase 60 (38-126) U/L Total Protein 8.2 (6.3-8.2) g/dL Albumin 4.7 (3.5-5.0) g/dL Amylase 119 H (30-110) U/L Lipase 198 (23-300) U/L Disposition Clinical Impression: Constipation, Fecal impaction Disposition: HOME SELF-CARE Condition: Good Instructions (If sedation given, give patient instructions): Constipation (ED) Additional Instructions: Follow-up with primary care doctor. Magnesium citrate bottle drink a half a bottle of milk continue Toprol bowel movements. Patient should use stool softeners daily. Return to the emergency department if any alarming signs or symptoms occur. Prescriptions: Hydrocortisone [Anusol-Hc] 1 applic RECTAL BID #30 gm Magnesium Citrate 296 ml PO ONCE #1 bottle Is patient prescribed a controlled substance at d/c from ED?: No Referrals: Dennis Herron MD [Primary Care Provider] - 1-2 days Time of Disposition: 18:19
== END 2018-08-25 18:48 | disposition home or self-care (01) ==
LOC: EC 13:50
DX: K56.41 Fecal impaction (principal); I10 Essential (primary) hypertension; Z79.899 Other long term (current) drug therapy; Z88.2 Allergy status to sulfonamides; Z85.828 Personal history of other malignant neoplasm of skin
CPT/HCPCS: 36415; 74018; 74176; 80053; 82150; 83690; 85025; 99284

== ENCOUNTER → 2018-08-25 | Outpatient (CLI) | payer MEDICARE ==
--- NOTE | 2018-08-25 13:33 | CT ---
EXAMINATION TYPE: CT abdomen pelvis wo con DATE OF EXAM: 08/25/2018 COMPARISON: 06/08/2018 INDICATION: Left lower quadrant pain DLP: 478 mGycm, Automated exposure control for dose reduction was used. CONTRAST: 0 mL of Isovue 300. Study performed without Oral Contrast TECHNIQUE: Axial images were obtained from above the diaphragm to the pubic rami in the axial plane a t 5 mm thick sections. Reconstructed images are reviewed on the computer in the coronal plane. FINDINGS: Limited CT sections are obtained the lung bases. There is a calcified granuloma at the right base me asuring 0.6 cm and 1100 Hounsfield units. Some minimal streak atelectasis is likely present at the bi lateral lung bases. CT ABDOMEN: Liver: Some scattered calcified granuloma are within the liver. Spleen: Normal Pancreas: Normal Adrenal glands: The adrenal glands are normal. Gallbladder: Normal Kidneys: No masses are evident. Left peripelvic cysts are again evident.. No cortical renal cysts are present. No renal stones are identified Aorta: Vascular calcification is within the aorta. Inferior vena cava: Normal. CT PELVIS: Loops of bowel within the abdomen and pelvis are normal. There are loops of bowel which are incom pletely distended or lack oral contrast limiting their evaluation. Scattered diverticuli are present without evidence of acute diverticulitis. This is more extensive in the sigmoid colon. Large fecal petra osvaldo is present at the rectum. Some bowel surgery is evident in the right lower quadrant. Appendix: Not identified. No inflammatory changes are identified Urinary bladder: Decompressed with limited evaluation Genitourinary structures: Uterus and ovaries are not identified. No suspicious fluid is within the pe lvis Osseous structures: No suspicious lytic or sclerotic lesions. IMPRESSIONS: 1. Left peripelvic cyst. 2. Diverticulosis without acute diverticulitis. 3. Large fecal bolus at the level the rectum correlate for impaction
== END | disposition home or self-care (01) ==
LOC: RADCTMAIN 12:43
PROVIDERS: ATTEND Nurse Practitioner Adult Health
DX: K57.30 Diverticulosis of large intestine without perforation or abscess without bleeding (principal); N28.1 Cyst of kidney, acquired; R19.5 Other fecal abnormalities
CPT/HCPCS: 74176

== ENCOUNTER 2019-03-10 12:03 | Day surgery (SDC) | payer MEDICARE ==
[2019-03-10 12:23] VITALS: TEMP 97.4
[2019-03-10 13:55] VITALS: PULSE 65; RESP 16
[2019-03-10 13:57] VITALS: BP 171/73
--- NOTE | 2019-03-10 14:08 | US ---
EXAMINATION TYPE: US FNA thyroid first lesion DATE OF EXAM: 03/10/2019 COMPARISON: NONE HISTORY: Thyroid nodule. Maximal barrier technique was utilized. After informed consent, skin overlying the lesion was locali zed with ultrasound and the overlying skin prepped and draped. Ultrasound was utilized using sterile technique. Lidocaine was used for local anesthesia. Five passes with a 25-gauge needle were made int o the right thyroid nodule and aspirated specimen was submitted to cytology. Following the procedure hemostasis achieved. No immediate complication. The patient discharged in stable condition. IMPRESSION: STATUS POST ULTRASOUND GUIDED FINE NEEDLE ASPIRATION OF THYROID NODULE, PATHOLOGY IS PEND ING. THIS PROCEDURE WAS PERFORMED BY THE UNDERSIGNED.
== END 2019-03-10 13:48 | disposition home or self-care (01) ==
LOC: RADPROMAIN 12:03
PROVIDERS: ATTEND Otolaryngology
DX: E04.1 Nontoxic single thyroid nodule (principal)
CPT/HCPCS: 10005; 88173; 88305

== ENCOUNTER → 2019-06-09 | Outpatient (CLI) | payer MEDICARE ==
--- NOTE | 2019-06-09 14:09 | US ---
EXAMINATION TYPE: US venous doppler duplex LE RT DATE OF EXAM: 06/09/2019 1:44 PM COMPARISON: NONE CLINICAL HISTORY: M79.604 Pain in RT Leg. SIDE PERFORMED: Right TECHNIQUE: The lower extremity deep venous system is examined utilizing real time linear array sonog sergo with graded compression, doppler sonography and color-flow sonography. VESSELS IMAGED: External Iliac Vein (EIV) Common Femoral Vein Deep Femoral Vein Greater Saphenous Vein * Femoral Vein Popliteal Vein Small Saphenous Vein * Proximal Calf Veins (* superficial vessels) Right Leg: Negative for DVT Two anechoic areas visualized in the posterior fossa, largest measuring 4.7 x 0.8 x 4.7 cm, possible su's cysts Grayscale, color doppler, spectral doppler imaging performed of the deep veins of the right lower ext remity. There is normal flow, compressibility, vascular waveforms. Towards end of study there are s uspected adjacent popliteal cysts or popliteal cyst with septation noted. IMPRESSION: No ultrasound evidence for acute DVT in the right lower extremity.
== END | disposition home or self-care (01) ==
LOC: RADUSWWP 13:20
PROVIDERS: ATTEND Family Medicine
DX: M79.604 Pain in right leg (principal)